=== PATIENT | female | born 1970 ===

== ENCOUNTER 2020-06-28 12:06 | Outpatient (REF) | payer MEDICAID, SELFPAY | END 2020-06-28 12:07 | disposition home or self-care (01) | LOC: HO.LAB 12:06 | PROVIDERS: Visit Provider Internal Medicine | DX: Z20.822 Contact with and (suspected) exposure to COVID-19 (principal) | CPT/HCPCS: 36415; C9803; U0003 ==

== ENCOUNTER 2020-07-15 15:51 | Outpatient (REF) | payer MEDICAID, SELFPAY | END 2020-07-15 15:52 | disposition home or self-care (01) | LOC: HO.LAB 15:51 | PROVIDERS: Visit Provider Internal Medicine | DX: Z20.822 Contact with and (suspected) exposure to COVID-19 (principal) | CPT/HCPCS: 36415; C9803; U0003 ==

== ENCOUNTER 2021-11-04 20:54 | Emergency (ER) | payer MEDICAID, SELFPAY ==
[2021-11-04 22:59] VITALS: BP 181/92; PULSE 77; RESP 18; TEMP 36.8; O2SAT 97; BMI 39.4
[2021-11-04 23:15] LABS: MANUAL DIFF FLAG NO
[2021-11-04 23:26] LABS: Basophils Percent Auto 0.3 % (0-2); Eosinophils Absolute Auto 0.2 X10*3/uL (0.0-0.4); Eosinophils Percent Auto 2.2 % (0-4); Hematocrit 38.8 % (37.0-47.0); Hemoglobin 12.5 g/dl (12.0-16.0); Imm Gran Abs Auto 0.01 X10*3/uL (0.00-0.03); Imm Gran Pct Auto 0.1 % (0.0-0.4); Lymphocytes Absolute Auto 1.4 X10*3/uL (1.2-4.9); Lymphocytes Percent Auto 19.2 % (20-40); Mean Corpuscular HGB Conc 32.2 g/dl (31.0-35.0); Mean Corpuscular Volume 96.3 fL (80.0-98.0); Mean Platelet Volume 12.8 fL (9.4-12.3); Monocytes Absolute Auto 0.5 X10*3/uL (0.1-1.2); Monocytes Percent Auto 6.6 % (2-11); Neutrophils Absolute Auto 5.2 x10*3/uL (2.0-8.3); Neutrophils Percent Auto 71.6 % (45-73); Platelet Count 203 X10*3/uL (160-400); Red Blood Count 4.03 X10*6/uL (4.20-5.50); Red Cell Distribution Width 11.8 % (11.0-16.0); White Blood Count 7.3 X10*3/uL (4.8-10.8)
[2021-11-04 23:35] LABS: Alanine Aminotransferase 18 U/L (0-31); Albumin Level 4.1 g/dL (3.5-5.0); Alkaline Phosphatase 88 U/L (39-117); Anion Gap 11 (12-20); Aspartate Amino Transferase 16 U/L (5-31); Bilirubin Total 0.5 mg/dL (0.0-1.0); Blood Urea Nitrogen 14 mg/dL (9-16); Calcium 9.7 mg/dL (8.4-10.2); Carbon Dioxide 27 mmol/L (22-29); Chloride 107 mmol/L (96-108); Estimated Glomerular Filt Rate > 60; Glucose Random 97 mg/dL (60-115); Sodium 141 mmol/L (135-145); Total Protein 7.7 g/dL (6.5-8.0)
== END 2021-11-05 02:41 | disposition left against medical advice (07) ==
PROVIDERS: Emergency Provider Emergency Medicine
DX: R10.9 Unspecified abdominal pain (principal); Z79.899 Other long term (current) drug therapy
CPT/HCPCS: 36415; 80053; 85025; 99281; 99283

== ENCOUNTER 2021-11-04 20:54 | Emergency (ER) | payer MEDICAID, SELFPAY ==
--- NOTE | ~2021-11-04 | CT_ITS ---
EXAMINATION: CT ABDOMEN AND PELVIS WITHOUT CONTRAST CLINICAL INFORMATION: 02/17/2011 COMPARISON: None TECHNIQUE: Multidetector volumetric imaging was performed from the superior aspect of the liver through the pubic symphysis. Sagittal and coronal reformatted images were obtained on the technologist's workstation. This CT examination was performed using dose optimization techniques as appropriate, variously including the following: *Automated exposure control *Adjustment of mA and/or kV according to patient size (this includes techniques or standardized protocols for targeted exams where dose is matched to indication/reason for exam; i.e. extremities or head) *Use of iterative reconstruction technique DLP: 800 mGy-cm FINDINGS: LUNG BASES: The visualized lung bases are unremarkable. LIVER, GALLBLADDER, AND BILIARY TREE: The liver is normal in size, shape, and attenuation. No focal hepatic lesion or biliary ductal dilatation is present. The gallbladder is unremarkable with no evidence of radiopaque gallstones, gallbladder wall thickening, or obvious pericholecystic inflammatory changes. PANCREAS: Unremarkable. SPLEEN: Unremarkable. ADRENAL GLANDS: Unremarkable. KIDNEYS AND URETERS: Hydronephrosis on the left. This appears to be caused by a 3 mm calculus in the proximal left ureter. BLADDER: Unremarkable. GASTROINTESTINAL TRACT: Diverticulosis. No evidence for diverticulitis. ABDOMINAL WALL: Fatty lesion involving the musculature of the right abdominal wall. There was minimal change here in 2011. This is felt to be increasing. Measures 4.3 x 3.2 x 5.7 cm. There are some soft tissue septations associated and possible mild thick wall inferior anterior LYMPH NODES: Normal. VASCULAR: Some atherosclerotic changes. PELVIC VISCERA: Unremarkable. OSSEOUS STRUCTURES: Unremarkable. CT/CT abdomen pelvis wo con IMPRESSION: There is mild hydronephrosis bordering moderate hydronephrosis of the left kidney which lead up to a 3 mm obstructing calculus in the proximal left ureter. There is a predominantly fat density lesion involving the right abdominal wall musculature above the level the iliac rim. This is increasing from 2011 study. As described some soft tissue associated. Although this could represent benign lipomatous I change cannot exclude liposarcoma. Recommend pre and postcontrast MRI Fleischner guidelines were followed.
--- NOTE | 2021-11-05 08:09 | ED.FEMALEGU ---
HPI - Female Genitourinary General Chief complaint: Urogenital-Female Stated complaint: possible kidney stone Time Seen by Provider: 11/05/21 08:05 Source: patient Mode of arrival: ambulatory Limitations: no limitations History of Present Illness HPI Narrative: this is 51 years old female presented to the ED with a chief complaint of left flank pain nausea for about 2 days, denies any fever vomiting MD elicited complaint: other (left flank pain) Onset (ago): day(s) (2) Location of symptoms: flank Severity: moderate Female Urogenital Radiation: Non-Radiating Consistency: constant Vaginal discharge: none Vaginal bleeding: none Related Data Home Medications Medication Instructions Recorded Confirmed amlodipine 10 mg tablet 10 mg PO DAILY 05/30/20 05/30/20 ergocalciferol (vitamin D2) 1,250 1,250 mcg PO QWEEK 05/30/20 05/30/20 mcg (50,000 unit) capsule (Vitamin D2) ferrous sulfate 325 mg (65 mg 325 mg PO BID 05/30/20 05/30/20 iron) tablet (iron) hydroxychloroquine 200 mg tablet 200 mg PO BID 05/30/20 05/30/20 (Plaquenil) lisinopril 40 mg tablet 40 mg PO DAILY 05/30/20 05/30/20 omeprazole 40 mg capsule,delayed 40 mg PO BID 05/30/20 05/30/20 release quetiapine 100 mg tablet (Seroquel) 100 mg PO BEDTIME 05/30/20 05/30/20 Previous Rx's Medication Instructions Recorded oxycodone 5 mg tablet 5 mg PO Q6H PRN #15 tab 11/05/21 tamsulosin 0.4 mg capsule (Flomax) 0.4 mg PO DAILY #10 cap 11/05/21 Allergies Allergy/AdvReac Type Severity Reaction Status Date / Time No Known Allergies Allergy Verified 05/30/20 10:12 [No Known Allergies*] Review of Systems Review of Systems: Yes all other systems are reviewed and are negative Cardiovascular: Cardiovascular: Denies chest pain and Denies dyspnea Respiratory: Respiratory: Denies dyspnea Gastrointestinal: Gastrointestinal: Reports abdominal pain PMFSH Past Medical History Medical History Anemia Arthritis Depression History of anxiety HTN (hypertension) Lupus Personal history of tuberculosis Surgical History H/O colonoscopy History of esophagogastroduodenoscopy (EGD) Hx of appendectomy Hx of dilation and curettage Hx of knee surgery Hx of lithotripsy Hx of total hysterectomy with removal of both tubes and ovaries Social History Social History Alcohol intake: never Years Smoked: 36 Substance Use Type: Marijuana Advance Directives: No Advance Directives Information Provided: Yes Physical Exam Vital Signs: Vital Signs: Last Vital Signs Pulse 76 11/05/21 10:57 Resp 14 11/05/21 10:57 BP 193/78 H 11/05/21 10:57 Pulse Ox 96 11/05/21 10:57 BMI result Body Mass Index 36.5 Const: General: cooperative, comfortable, no acute distress, well developed and alert Nutritional Appearance: average body habitus Orientation/consciousness: patient oriented x3 HEENT: Head: Yes normal to inspection Face and sinus: Yes normal facial exam Mouth: Normal oral and palatal mucosa present Throat: Yes posterior oropharynx normal Neck: Neck: Yes normal visual inspection and Yes full ROM Chest: Chest palpation & inspection: normal inspection of the chest Resp: Effort & Inspection: normal respiratory effort Auscultation: clear to auscultation bilaterally Cardio: Jugular venous distension: no JVD Rhythm: regular rhythm GI: Inspection: Yes normal to inspection Palpation (GI): Tenderness to palpation present (GI) (left flank tenderness) Neuro: General: patient oriented x3 and gait normal Gait exam (Neuro): Normal gait present Course Reevaluation(s) Reevaluation #1: pain free Time: 11:11 [facility] - Female Genitourinary Lab Data Attestation: I reviewed the patient's lab results. Result diagrams: 11/05/21 09:27 11/05/21 09:27 Labs: Lab Results 11/05/21 11/05/21 Range/Units 09:27 09:27 WBC 5.8 (4.8-10.8) X10*3/uL RBC 4.14 L (4.20-5.50) X10*6/uL Hgb 12.6 (12.0-16.0) g/dl Hct 39.6 (37.0-47.0) % MCV 95.7 (80.0-98.0) fL MCH 30.4 (27.0-33.0) pg MCHC 31.8 (31.0-35.0) g/dl RDW 11.9 (11.0-16.0) % Plt Count 210 (160-400) X10*3/uL MPV 12.9 H (9.4-12.3) fL Immature Gran % (Auto) 0.3 (0.0-0.4) % Neut % (Auto) 63.7 (45-73) % Lymph % (Auto) 24.5 (20-40) % [place] % (Auto) 7.2 (2-11) % Eos % (Auto) 4.0 (0-4) % Baso % (Auto) 0.3 (0-2) % Lymph # (Auto) 1.4 (1.2-4.9) X10*3/uL [place] # (Auto) 0.4 (0.1-1.2) X10*3/uL Eos # (Auto) 0.2 (0.0-0.4) X10*3/uL Baso # (Auto) 0.0 (0.0-0.2) X10*3/uL Abs Immat Gran (auto) 0.02 (0.00-0.03) X10*3/uL Absolute Neuts (auto) 3.7 (2.0-8.3) x10*3/uL Absolute Nucleated RBC 0.000 (0.0-0.012) X10*3/uL Nucleated RBC % (auto) 0.0 (0.0-0.2) /100WBC Sodium 141 (135-145) mmol/L Potassium 3.8 (3.3-5.1) mmol/L Chloride 106 (96-108) mmol/L Carbon Dioxide 28 (22-29) mmol/L Anion Gap 11 L (12-20) BUN 11 (9-16) mg/dL Creatinine 0.71 (0.5-1.4) mg/dL Estim Creat Clear Calc TNP Estimated GFR > 60 Random Glucose 99 (60-115) mg/dL Calcium 9.7 (8.4-10.2) mg/dL Total Bilirubin 0.6 (0.0-1.0) mg/dL AST 15 (5-31) U/L ALT 18 (0-31) U/L Alkaline Phosphatase 89 (39-117) U/L Total Protein 7.5 (6.5-8.0) g/dL Albumin 4.1 (3.5-5.0) g/dL Imaging Data CT scan - abdomen: Radiologist's impression: ere in 2011. This is felt to be increasing. Measures 4.3 x 3.2 x 5.7 cm. There are some soft tissue septations associated and possible mild thick wall inferior anterior? LYMPH NODES: Normal. VASCULAR: Some atherosclerotic changes. PELVIC VISCERA: Unremarkable.? OSSEOUS STRUCTURES: Unremarkable.? CT/CT abdomen pelvis wo con IMPRESSION: There is mild hydronephrosis bordering moderate hydronephrosis of the left kidney which lead up to a 3 mm obstructing calculus in the proximal left ureter. ? There is a? predominantly fat density lesion involving the right abdominal wall musculature above the level the iliac rim. This is increasing from 2011 study. As described some soft tissue associated. Although this could represent benign lipomatous I change cannot exclude liposarcoma. Recommend pre and postcontrast MRI ? Fleischner guidelines were followed. Dictated By: Max Joel MD Signed By: <Electronically signed by Max Joel MD in [place]> 11/05/21 1005 DD/ 0910 Discharge Plan Discharge Clinical Impression: Renal colic Patient Disposition: Home, Self-Care Instructions: Renal Colic (ED) Prescriptions: New oxycodone 5 mg tablet 5 mg PO Q6H PRN (Reason: pain) Qty: 15 0RF Rx Instructions: partial filing upon pt request tamsulosin [Flomax] 0.4 mg capsule 0.4 mg PO DAILY Qty: 10 0RF No Action omeprazole 40 mg Capsule,Delayed Release(Dr/Ec) 40 mg PO BID 0RF quetiapine [Seroquel] 100 mg Tablet 100 mg PO BEDTIME 0RF amlodipine 10 mg Tablet 10 mg PO DAILY 0RF ferrous sulfate [iron] 325 mg (65 mg iron) Tablet 325 mg PO BID 0RF ergocalciferol (vitamin D2) [Vitamin D2] 1,250 mcg (50,000 unit) Capsule 1,250 mcg PO QWEEK 0RF hydroxychloroquine [Plaquenil] 200 mg Tablet 200 mg PO BID 0RF lisinopril 40 mg Tablet 40 mg PO DAILY 0RF Referrals: Kev Hernandez MD [Physician] - Interventions: ED Discharge Assessment Last Done: 11/05/21 11:23 Discharge Date/Time: 11/05/21 11:23
[2021-11-05 09:32] LABS: MANUAL DIFF FLAG NO
[2021-11-05 09:43] LABS: Basophils Percent Auto 0.3 % (0-2); Eosinophils Absolute Auto 0.2 X10*3/uL (0.0-0.4); Hematocrit 39.6 % (37.0-47.0); Hemoglobin 12.6 g/dl (12.0-16.0); Imm Gran Abs Auto 0.02 X10*3/uL (0.00-0.03); Imm Gran Pct Auto 0.3 % (0.0-0.4); Lymphocytes Absolute Auto 1.4 X10*3/uL (1.2-4.9); Lymphocytes Percent Auto 24.5 % (20-40); Mean Corpuscular HGB Conc 31.8 g/dl (31.0-35.0); Mean Corpuscular Hemoglobin 30.4 pg (27.0-33.0); Mean Corpuscular Volume 95.7 fL (80.0-98.0); Mean Platelet Volume 12.9 fL (9.4-12.3); Monocytes Absolute Auto 0.4 X10*3/uL (0.1-1.2); Monocytes Percent Auto 7.2 % (2-11); Neutrophils Absolute Auto 3.7 x10*3/uL (2.0-8.3); Neutrophils Percent Auto 63.7 % (45-73); Platelet Count 210 X10*3/uL (160-400); Red Blood Count 4.14 X10*6/uL (4.20-5.50); Red Cell Distribution Width 11.9 % (11.0-16.0); White Blood Count 5.8 X10*3/uL (4.8-10.8)
[2021-11-05 10:04] LABS: Alanine Aminotransferase 18 U/L (0-31); Albumin Level 4.1 g/dL (3.5-5.0); Alkaline Phosphatase 89 U/L (39-117); Anion Gap 11 (12-20); Aspartate Amino Transferase 15 U/L (5-31); Bilirubin Total 0.6 mg/dL (0.0-1.0); Blood Urea Nitrogen 11 mg/dL (9-16); Calcium 9.7 mg/dL (8.4-10.2); Carbon Dioxide 28 mmol/L (22-29); Chloride 106 mmol/L (96-108); Estimated Glomerular Filt Rate > 60; Glucose Random 99 mg/dL (60-115); Potassium 3.8 mmol/L (3.3-5.1); Sodium 141 mmol/L (135-145); Total Protein 7.5 g/dL (6.5-8.0)
[2021-11-05] MEDS: oxyCODONE HCl Immed Release 5 MG TABLET 10 MG PO (10:26)
[2021-11-05 10:54] VITALS: BMI 36.5
[2021-11-05 10:57] VITALS: BP 193/78; PULSE 76; RESP 14; O2SAT 96
[2021-11-05] MEDS: Ketorolac Tromethamine 60 MG/2 ML VIAL IM (11:12)
== END 2021-11-05 11:23 | disposition home or self-care (01) ==
PROVIDERS: Emergency Provider Emergency Medicine
DX: N23 Unspecified renal colic (principal); I10 Essential (primary) hypertension
CPT/HCPCS: 36415; 74176; 80053; 85025; 96372; 99283; 99284; J1885

== ENCOUNTER 2021-11-07 04:55 | Emergency (ER) | payer MEDICAID, SELFPAY ==
[2021-11-07 05:00] VITALS: BP 165/93; BP 196/81; PULSE 114; PULSE 97; RESP 18; TEMP 36.7; O2SAT 98; O2SAT 99; BMI 39.4
[2021-11-07] MEDS: 0.9 % Sodium Chloride 1,000 ML 999 ML IV (05:18)
[2021-11-07] MEDS: Ketorolac Tromethamine 30 MG/ML VIAL IVPUSH (05:22)
[2021-11-07] MEDS: Morphine Sulfate 2 MG/ML CARTRIDGE 1 MG IVPUSH (05:22)
[2021-11-07 05:52] LABS: Basophils Percent Auto 0.2 % (0-2); Eosinophils Absolute Auto 0.1 X10*3/uL (0.0-0.4); Eosinophils Percent Auto 1.5 % (0-4); Hematocrit 37.8 % (37.0-47.0); Hemoglobin 12.4 g/dl (12.0-16.0); Imm Gran Abs Auto 0.01 X10*3/uL (0.00-0.03); Imm Gran Pct Auto 0.2 % (0.0-0.4); Lymphocytes Absolute Auto 0.8 X10*3/uL (1.2-4.9); Lymphocytes Percent Auto 13.1 % (20-40); MANUAL DIFF FLAG NO; Mean Corpuscular HGB Conc 32.8 g/dl (31.0-35.0); Mean Corpuscular Volume 94.5 fL (80.0-98.0); Monocytes Absolute Auto 0.4 X10*3/uL (0.1-1.2); Neutrophils Absolute Auto 4.6 x10*3/uL (2.0-8.3); Platelet Count 152 X10*3/uL (160-400); Red Cell Distribution Width 11.7 % (11.0-16.0); White Blood Count 5.9 X10*3/uL (4.8-10.8)
[2021-11-07 06:07] LABS: Alanine Aminotransferase 15 U/L (0-31); Albumin Level 4.2 g/dL (3.5-5.0); Alkaline Phosphatase 87 U/L (39-117); Anion Gap 12 (12-20); Aspartate Amino Transferase 14 U/L (5-31); Bilirubin Direct 0.3 mg/dL (0.0-0.5); Bilirubin Total 0.8 mg/dL (0.0-1.0); Blood Urea Nitrogen 14 mg/dL (9-16); Calcium 9.9 mg/dL (8.4-10.2); Carbon Dioxide 26 mmol/L (22-29); Chloride 105 mmol/L (96-108); Creatinine Clr Calc Pharmacy 98.1; Estimated Glomerular Filt Rate > 60; Glucose Random 112 mg/dL (60-115); Lipase 15 U/L (8-78); Potassium 3.8 mmol/L (3.3-5.1); Sodium 139 mmol/L (135-145); Total Protein 7.5 g/dL (6.5-8.0)
[2021-11-07 07:12] VITALS: BP 161/84; PULSE 85; RESP 16; TEMP 36.6; O2SAT 97
[2021-11-07 07:25] LABS: Appearance Urine CLEAR; Color Urine YELLOW; Glucose Urine UA NEG (NEG); Leukocyte Esterase Urine NEG (NEG); Nitrite Urine NEG (NEG); Specific Gravity - Urine 1.015 (1.005-1.025); UACC Culture Trigger NO; Urine Blood 2+ (NEG); Urine Ketones NEG (NEG); Urine Protein NEG (NEG-TRACE)
[2021-11-07 07:56] LABS: WBC Urine 0 /HPF (0-4)
--- NOTE | 2021-11-07 08:18 | ED.ABDPAIN ---
HPI - Abdominal Pain General Chief Complaint: Abdominal Pain Stated Complaint: Flank Pain Time Seen by Provider: 11/07/21 05:11 Source: patient Mode of arrival: EMS Limitations: no limitations History of Present Illness HPI narrative: 51-year-old female who presents emergency department for evaluation of left flank and left abdominal pain. The patient states the pain started 3 days prior. She was seen here in the emergency department on 11/05/2021 and diagnosed with 3 mm proximal left ureteral stone with mild hydronephrosis. She was discharged with a prescription for tamsulosin oxycodone. She states that the pain is been intermittent. The pain got more severe this morning. She points to her left flank when she describes the pain. The pain does radiate to her left upper quadrant of her abdomen. The pain is an intermittent, stabbing pain which is 9/10 at its worst. Patient states she took her oxycodone at home without relief for pain. At the time of my evaluation, the patient did receive morphine 1 mg IV and Toradol 30 mg IV and still is experiencing 9/10 pain. She denied fever, chills, chest pain, shortness of breath. She has had nausea. She states she has had urinary frequency with no dysuria. MD elicited complaint: abdominal pain (Left upper quad) and flank pain (Left flank) Pertinent past history: kidney stones (3 mm left proximal ureteral stone diagnosed on 11/05/2021) Onset (ago): day(s) (3) Pain Consistency: intermittent Location: LUQ and L flank Severity: severe Pain scale (0-10): 9 Quality: stabbing Radiation: none Migration to: no migration Exacerbating factors: nothing Relieving factors: nothing Associated symptoms: nausea and other (Urinary frequency) Related Data Home Medications Medication Instructions Recorded Confirmed amlodipine 10 mg tablet 10 mg PO DAILY 05/30/20 05/30/20 ergocalciferol (vitamin D2) 1,250 1,250 mcg PO QWEEK 05/30/20 05/30/20 mcg (50,000 unit) capsule (Vitamin D2) ferrous sulfate 325 mg (65 mg 325 mg PO BID 05/30/20 05/30/20 iron) tablet (iron) hydroxychloroquine 200 mg tablet 200 mg PO BID 05/30/20 05/30/20 (Plaquenil) lisinopril 40 mg tablet 40 mg PO DAILY 05/30/20 05/30/20 omeprazole 40 mg capsule,delayed 40 mg PO BID 05/30/20 05/30/20 release quetiapine 100 mg tablet (Seroquel) 100 mg PO BEDTIME 05/30/20 05/30/20 Previous Rx's Medication Instructions Recorded oxycodone 5 mg tablet 5 mg PO Q6H PRN #15 tab 11/05/21 tamsulosin 0.4 mg capsule (Flomax) 0.4 mg PO DAILY #10 cap 11/05/21 morphine 15 mg immediate release 15 mg PO Q4-6H PRN #14 tab 11/07/21 tablet Allergies Allergy/AdvReac Type Severity Reaction Status Date / Time No Known Allergies Allergy Verified 05/30/20 10:12 [No Known Allergies*] Review of Systems Review of Systems Yes all other systems are reviewed and are negative [facility] Past Medical History [facility] Narrative: Social history: She denies tobacco use. She states she rarely drinks alcohol. She denies drug use. Medical History Anemia Arthritis Depression History of anxiety HTN (hypertension) Lupus Personal history of tuberculosis Surgical History H/O colonoscopy History of esophagogastroduodenoscopy (EGD) Hx of appendectomy Hx of dilation and curettage Hx of knee surgery Hx of lithotripsy Hx of total hysterectomy with removal of both tubes and ovaries Social History Social History Alcohol intake: never Years Smoked: 36 Substance Use Type: Marijuana Advance Directives: No Advance Directives Information Provided: No Physical Exam ED Vital Signs: Vital Signs - 24 hr 11/07/21 05:00 11/07/21 07:12 Temperature 98.1 F 97.8 F Pulse Rate 97 85 Respiratory Rate 18 16 Blood Pressure 196/81 H 161/84 H Pulse Oximetry 99 97 BMI result Body Mass Index 39.4 Const General: cooperative and no acute distress Orientation/consciousness: oriented to person and oriented to place Limitations: no limitations HENMT Head: Yes normal to inspection, Yes normocephalic and Yes atraumatic Ears: external ears normal General nose exam: Normal external nose present Face and sinus: Yes normal facial exam Mouth: Normal oral and palatal mucosa present Throat: Yes posterior oropharynx normal Eyes General: appearance normal, both eyes and all related structures Pupils: Equal, round and reactive pupils present Neck Neck: Yes normal visual inspection, Yes no lymphadenopathy, Yes trachea midline and Yes supple Chest Chest palpation & inspection: normal inspection of the chest and normal palpation of entire chest wall Resp Effort & Inspection: normal respiratory effort and able to speak in complete sentences Auscultation: clear to auscultation bilaterally Cardio Rate: regular rate Rhythm: regular rhythm Heart sounds: S1 normal heart sound present, S2 normal heart sound present and no murmurs GI Inspection: Yes normal to inspection Palpation (GI): Soft to palpation, Tenderness to palpation present (GI) in the LUQ (Moderate) and no guarding Auscultation: normal bowel sounds General: Yes no CVA tenderness Back/Spine/Pelvis Back: no CVA tenderness Skin General skin exam: no rashes or lesions noted Neuro General: oriented to person and oriented to place Cranial nerves: Yes CN's II-XII intact bilaterally and Yes Equal, round and reactive pupils present Cognition (Neuro): normal cognition Motor exam (neuro): 5/5 motor strength present throughout Extrem General: Yes normal to inspection Psych Appearance: grossly normal Speech and movement: Normal speech and movement present Affect: normal affect Attitude: cooperative Thought process: Normal thought process present Thought content: Normal thought content present Course Course Course Narrative: 51-year-old female who presents emergency department for evaluation of left flank and left upper quadrant pain which is been intermittent x3 days. The patient was diagnosed with a 3 mm left proximal ureteral stone by CT scan on 11/05/2021 with mild hydronephrosis. Patient has been having intermittent pain with increased pain this morning which was 9/10 . The pain is located in her left flank and left upper quadrant. Vital signs revealed an elevated blood pressure of 196/81, repeat was 161/84 otherwise vital signs were normal. The patient does have left upper quadrant tenderness with no left flank tenderness. Laboratory evaluation and urinalysis were ordered. Patient was initially treated with Toradol 30 mg IV and morphine 1 mg IV with no relief for pain. I ordered morphine 4 mg IV and Zofran 4 mg IV. Patient was also ordered to get normal saline x1 L. 0827: Laboratory evaluation: Platelet count was low 152,000. CMP was normal with normal BUN and creatinine. Urinalysis revealed 2+ blood. Microscopic revealed 9 RBCs, 0 WBCs and 0 bacteria. 1104: The patient is feeling better after the above treatment. She states that her pain is 6/10. She was ordered to get a another dose of morphine 4 mg IV. The patient will be discharged home with a prescription for morphine 4 mg every 4-6 hours as needed for pain. She was given printed and verbal instructions and discharged home. She was advised to continue straining her urine. MDM - Abdominal Pain Lab Data Result diagrams: 11/07/21 05:48 11/07/21 05:48 Labs: Lab Results 11/07/21 11/07/21 11/07/21 Range/Units 05:48 05:48 07:11 WBC 5.9 (4.8-10.8) X10*3/uL RBC 4.00 L (4.20-5.50) X10*6/uL Hgb 12.4 (12.0-16.0) g/dl Hct 37.8 (37.0-47.0) % MCV 94.5 (80.0-98.0) fL MCH 31.0 (27.0-33.0) pg MCHC 32.8 (31.0-35.0) g/dl RDW 11.7 (11.0-16.0) % Plt Count 152 L D (160-400) X10*3/uL MPV 13.0 H (9.4-12.3) fL Immature Gran % (Auto) 0.2 (0.0-0.4) % Neut % (Auto) 78.0 H (45-73) % Lymph % (Auto) 13.1 L (20-40) % [place] % (Auto) 7.0 (2-11) % Eos % (Auto) 1.5 (0-4) % Baso % (Auto) 0.2 (0-2) % Lymph # (Auto) 0.8 L (1.2-4.9) X10*3/uL [place] # (Auto) 0.4 (0.1-1.2) X10*3/uL Eos # (Auto) 0.1 (0.0-0.4) X10*3/uL Baso # (Auto) 0.0 (0.0-0.2) X10*3/uL Abs Immat Gran (auto) 0.01 (0.00-0.03) X10*3/uL Absolute Neuts (auto) 4.6 (2.0-8.3) x10*3/uL Absolute Nucleated RBC 0.000 (0.0-0.012) X10*3/uL Nucleated RBC % (auto) 0.0 (0.0-0.2) /100WBC Sodium 139 (135-145) mmol/L Potassium 3.8 (3.3-5.1) mmol/L Chloride 105 (96-108) mmol/L Carbon Dioxide 26 (22-29) mmol/L Anion Gap 12 (12-20) BUN 14 (9-16) mg/dL Creatinine 0.78 (0.5-1.4) mg/dL Estim Creat Clear Calc 98.1 Estimated GFR > 60 Random Glucose 112 (60-115) mg/dL Calcium 9.9 (8.4-10.2) mg/dL Total Bilirubin 0.8 (0.0-1.0) mg/dL Direct Bilirubin 0.3 (0.0-0.5) mg/dL AST 14 (5-31) U/L ALT 15 (0-31) U/L Alkaline Phosphatase 87 (39-117) U/L Total Protein 7.5 (6.5-8.0) g/dL Albumin 4.2 (3.5-5.0) g/dL Lipase 15 (8-78) U/L Urine Color YELLOW Urine Appearance CLEAR Urine pH 7.0 (5.0-8.0) Ur Specific [place] 1.015 (1.005-1.025) Urine Protein NEG (NEG-TRACE) MG/DL Urine Glucose (UA) NEG (NEG) MG/DL Urine Ketones NEG (NEG) MG/DL Urine Blood 2+ H (NEG) Urine Nitrite NEG (NEG) Ur Leukocyte Esterase NEG (NEG) Urine RBC 5-9 H (0) /HPF Urine WBC 0 (0-4) /HPF Ur Squamous Epith Cells NONE /LPF Urine Bacteria NONE /LPF Discharge Plan Discharge Clinical Impression: Renal colic on left side, Left ureteral calculus Patient Disposition: Home, Self-Care Instructions: Kidney Stones (ED), How to Strain Your Urine (ED) Additional Instructions: Your blood work was unremarkable. Your urinalysis test was unremarkable, there is no urine infection. You had a 3 mm stone in the left ureter (the tube that connects the kidney to the bladder) on your CT scan from 11/05/2021 Stop taking oxycodone. Take ibuprofen 200 mg pills, 3 pills every 6 hours as needed for pain. Take Tylenol (acetaminophen) 2 pills every 4-6 hours as needed for pain. For pain not relieved by ibuprofen or Tylenol take morphine 15 mg pills, 1 pill every 4 hours as needed for pain. This medication will make you sleepy, do not drive or work while taking this medication. Morphine is a narcotic medication and can be addicting. If you are concerned about addiction you can ask the pharmacist for less pills or do not get this prescription filled. Follow-up with your doctor in 2 days and our urologist within 1-2 weeks. Please return to the emergency department if your symptoms get worse or if you develop any symptoms that are concerning to you. Prescriptions: New morphine 15 mg tablet 15 mg PO Q4-6H PRN (Reason: pain) Qty: 14 0RF Rx Instructions: Patient may request partial fill No Action omeprazole 40 mg Capsule,Delayed Release(Dr/Ec) 40 mg PO BID 0RF quetiapine [Seroquel] 100 mg Tablet 100 mg PO BEDTIME 0RF amlodipine 10 mg Tablet 10 mg PO DAILY 0RF ferrous sulfate [iron] 325 mg (65 mg iron) Tablet 325 mg PO BID 0RF ergocalciferol (vitamin D2) [Vitamin D2] 1,250 mcg (50,000 unit) Capsule 1,250 mcg PO QWEEK 0RF hydroxychloroquine [Plaquenil] 200 mg Tablet 200 mg PO BID 0RF lisinopril 40 mg Tablet 40 mg PO DAILY 0RF oxycodone 5 mg tablet 5 mg PO Q6H PRN (Reason: pain) Qty: 15 0RF Rx Instructions: partial filing upon pt request tamsulosin [Flomax] 0.4 mg capsule 0.4 mg PO DAILY Qty: 10 0RF Referrals: Kev Hernandez MD [Physician] - 10 days
[2021-11-07] MEDS: ondansetron HCL 4 MG/2 ML VIAL IVPUSH (08:24)
[2021-11-07] MEDS: Morphine Sulfate 4 MG/ML CARTRIDGE IVPUSH ×3 (08:24→11:13)
[2021-11-07 11:16] VITALS: BP 127/88; PULSE 81; RESP 18; TEMP 36.6; O2SAT 97
== END 2021-11-07 11:55 | disposition home or self-care (01) ==
PROVIDERS: Emergency Medicine; Emergency Provider Emergency Medicine Emergency Medical Services
DX: N13.2 Hydronephrosis with renal and ureteral calculous obstruction (principal); I10 Essential (primary) hypertension
CPT/HCPCS: 36415; 80048; 80076; 81001; 83690; 85025; 96361; 96374; 96375; 96376; 99283; 99284; J1885; J2270; J2405

== ENCOUNTER 2022-12-12 15:00 | Emergency (ER) | payer MEDICAID, SELFPAY ==
--- NOTE | 2022-12-12 15:09 | ED.WOUNDLAC ---
HPI - Wound/Laceration General Chief Complaint: Wound/Laceration Stated Complaint: left hand laceration Time Seen by Provider: 12/12/22 15:22 History of Present Illness HPI narrative: patient complains of laceration to left index finger with a knife just prior to arrival in the ER, no numbness no weakness no tingling no difficulty moving finger denies any other injury Related Data Home Medications Medication Instructions Recorded Confirmed amlodipine 10 mg tablet 10 mg PO DAILY 05/30/20 05/30/20 ergocalciferol (vitamin D2) 1,250 1,250 mcg PO QWEEK 05/30/20 05/30/20 mcg (50,000 unit) capsule (Vitamin D2) ferrous sulfate 325 mg (65 mg 325 mg PO BID 05/30/20 05/30/20 iron) tablet (iron) hydroxychloroquine 200 mg tablet 200 mg PO BID 05/30/20 05/30/20 (Plaquenil) lisinopril 40 mg tablet 40 mg PO DAILY 05/30/20 05/30/20 omeprazole 40 mg capsule,delayed 40 mg PO BID 05/30/20 05/30/20 release quetiapine 100 mg tablet (Seroquel) 100 mg PO BEDTIME 05/30/20 05/30/20 Previous Rx's Medication Instructions Recorded oxycodone 5 mg tablet 5 mg PO Q6H PRN pain #15 tabs 11/05/21 tamsulosin 0.4 mg capsule (Flomax) 0.4 mg PO DAILY #10 caps 11/05/21 morphine 15 mg immediate release 15 mg PO Q4-6H PRN pain #14 tabs 11/07/21 tablet Allergies Allergy/AdvReac Type Severity Reaction Status Date / Time hydroxychloroquine Allergy Unknown Verified 12/12/22 15:16 [facility] Past Medical History Source: nursing notes reviewed Medical History Anemia Arthritis Depression History of anxiety HTN (hypertension) Lupus Personal history of tuberculosis Surgical History H/O colonoscopy History of esophagogastroduodenoscopy (EGD) Hx of appendectomy Hx of dilation and curettage Hx of knee surgery Hx of lithotripsy Hx of total hysterectomy with removal of both tubes and ovaries Social History Social History Alcohol intake: never Years Smoked: 36 Substance Use Type: Marijuana Advance Directives: No Advance Directives Information Provided: No Physical Exam Vital Signs: Vital Signs: Last Vital Signs Temp 97.7 F 12/12/22 15:16 Pulse 82 12/12/22 15:16 Resp 16 12/12/22 15:16 BP 154/99 H 12/12/22 15:16 Pulse Ox 96 12/12/22 15:16 O2 Del Method Room Air 12/12/22 15:16 BMI result Body Mass Index 39.8 general appearance no acute distress Head is normocephalic atraumatic Neck is supple Respiratory no distress Left index finger has a laceration mid phalanx of the mid phalanx, it is on the volar surface it is 1.5 cm it is oozing blood, it is neurovascular intact distal with full flexion, no evidence of tendon deficit Course Course Course Narrative: This is an RME: Additional HPI, ROS, PE not included below will be deferred to primary provider. Patient is a 52 year old female who presents emergency department for evaluation of a laceration having occurred [employer], cut hand with a kitchen knife accidentally. Laceration left 2nd DIP palmar aspect, unable to flex, held in extension. cleansed NS, CDD dressing placed. Denies anticoagulants. last tetanus unknown Procedure note Left index finger 1.5 cm laceration anesthesia is 6 cc of 1% lidocaine digital block Copiously irrigated with normal saline Closed with 45.0 nylon sutures with bleeding controlled Dressing applied Well-appearing patient with no flexor tendon deficits is discharged Medications Administered Discontinued Medications Generic Name Dose Route Start Last Admin Trade Name Freq PRN Reason Stop Dose Admin Diphtheria/Tetanus/Acell Pertussis 0.5 ml 12/12/22 15:13 12/12/22 15:33 Diphth,Pertus(Acell),Tet Adult 0.5 Ml Syringe IM 12/12/22 15:14 0.5 ml .ONCE ONE Administration Lidocaine HCl 5 ml 12/12/22 15:37 12/12/22 16:01 Lidocaine Hcl 1 % Mpf 5 Ml Vial SUBCUT 12/12/22 15:38 5 ml ONCE ONE Administration Lidocaine HCl 5 ml 12/12/22 15:38 12/12/22 16:01 Lidocaine Hcl 1 % Mpf 5 Ml Vial SUBCUT 12/12/22 15:39 5 ml ONCE ONE Administration Discharge Plan Discharge Clinical Impression: Laceration Patient Disposition: Home, Self-Care Additional Instructions: sutures out at your doctor's office in a week to 10 days, if he is not available come to the ER Return any time for redness swelling pain discharge from wound any sign of infection You had a tetanus shot today Prescriptions: No Action omeprazole 40 mg Capsule,Delayed Release(Dr/Ec) 40 mg PO BID quetiapine [Seroquel] 100 mg Tablet 100 mg PO BEDTIME amlodipine 10 mg Tablet 10 mg PO DAILY ferrous sulfate [iron] 325 mg (65 mg iron) Tablet 325 mg PO BID ergocalciferol (vitamin D2) [Vitamin D2] 1,250 mcg (50,000 unit) Capsule 1,250 mcg PO QWEEK hydroxychloroquine [Plaquenil] 200 mg Tablet 200 mg PO BID lisinopril 40 mg Tablet 40 mg PO DAILY oxycodone 5 mg tablet 5 mg PO Q6H PRN (Reason: pain) Qty: 15 0RF Rx Instructions: partial filing upon pt request tamsulosin [Flomax] 0.4 mg capsule 0.4 mg PO DAILY Qty: 10 0RF morphine 15 mg tablet 15 mg PO Q4-6H PRN (Reason: pain) Qty: 14 0RF Rx Instructions: Patient may request partial fill
[2022-12-12 15:16] VITALS: BP 154/99; PULSE 82; RESP 16; TEMP 36.5; O2SAT 96; BMI 39.8
[2022-12-12] MEDS: Diphth,Pertus(ACell),Tet Adult 0.5 ML SYRINGE IM (15:33)
[2022-12-12] MEDS: Lidocaine HCl 1 % MPF 5 ML VIAL SUBCUT ×2 (16:01)
== END 2022-12-12 16:57 | disposition home or self-care (01) ==
PROVIDERS: Emergency Provider Emergency Medicine
DX: S61.211A Laceration without foreign body of left index finger without damage to nail, initial encounter (principal); W26.0XXA Contact with knife, initial encounter; Y93.9 Activity, unspecified; Y92.039 Unspecified place in apartment as the place of occurrence of the external cause; Y99.9 Unspecified external cause status
CPT/HCPCS: 12001; 90471; 90715; 99282; 99284

== ENCOUNTER 2023-02-25 14:59 | Outpatient (AMB) | payer MEDICAID, SELFPAY ==
--- NOTE | 2023-02-25 15:01 | MHC.OFFVIS ---
Intake Vital Signs 02/25/23 15:10 Height 5 ft 4 in Weight 236 lb 6 oz BMI 40.6 BP 136/80 Blood Pressure Location Rt brachial Position Sitting Pulse 72 Pulse Source Pulse Oximeter Pulse Oximetry (%) 98 Oxygen Delivery Method Room Air Intake Visit Reasons: Arthritis of both knees Insulation Blanket Maker Required: Yes Insulation Blanket Maker Language: Casing In Line Feeder Name: daughter Accompanied by: Daughter Allergies hydroxychloroquine Allergy (Verified 02/25/23 15:07) Unknown HPI Arthritis of both knees HPI Details Patient is a 52-year-old Kazakh-speaking morbidly obese female with prior history of hypertension, unspecified connective tissue disease, mood disorder, LVH, SVT, presents to the this chronic bilateral knee pain for reviewed she has been previously seen by Rheumatology, Orthopedics and Pain Management. Per referral notes, patient was last seen by Pain management in 2019 for consideration of nerve blocks which had previously resulted in relief. Patient presents with localized tenderness of her global anterior knee. She reports left knee surgery at [facility] 6 years ago and right knee surgery more than 15 years ago. Patient reports she underwent multiple injections, x-rays, and states and topical applications [id number] which did not provide her any pain relief. Pain negatively affects her daily activities, functioning, mobility, mood, sleep and sleep interactions. Patient reports medications like tramadol or oxycodone have been the most effective and she requests for opioid medication to be prescribed today. I have informed patient that our office does not offer opioid prescribing at this time. We discussed diagnostic genicular nerve blocks for potential peripheral nerve stimulation or RFA procedures to provide patient's longer-term pain relief. Patient is very hesitant to worse interventional treatments at this time. Denies any fever, weight loss, weakness, knee locking or giving out, bladder or bowel dysfunction or saddle anesthesia. Location Bilateral knees Duration Chronic pain for 3 years Characteristics of symptom or complaint Aching, tiring,burning, stabbing Aggravating or associated factors Standing, walking, climbing stairs, cold weather changes Relieving factors Cymbalta, tramadol, oxycodone, Celebrex, meloxicam Treatment Knee injections, topical applications, ice/heat therapy [facility] Medical History (Updated 02/28/23 @ 20:54 by LENI Rodriguez) Lupus Arthritis Anemia History of anxiety Depression Personal history of tuberculosis HTN (hypertension) Surgical History (Updated 02/28/23 @ 20:54 by LENI Rodriguez) Hx of total hysterectomy with removal of both tubes and ovaries Hx of dilation and curettage History of esophagogastroduodenoscopy (EGD) H/O colonoscopy Hx of knee surgery Hx of lithotripsy Hx of appendectomy Social History Alcohol intake: never Years Smoked: 36 Substance Use Type: Marijuana Review of Systems Const All systems reviewed & are unremarkable except as noted in HPI and below Physical Exam Vital Signs: Last Vital Signs Pulse 72 02/25/23 15:10 BP 136/80 02/25/23 15:10 Pulse Ox 98 02/25/23 15:10 Oxygen Delivery Method Room Air 02/25/23 15:10 BMI result Body Mass Index 40.6 General: Appears afebrile. Alert and oriented. Mood and affect appropriate. Follows and participates in conversation appropriately. Respiratory effort is unlabored. No cough. Able to transition from sit to stand unassisted. Ambulates with bilaterally normal heel strike and toe off. Extrem General: Yes capillary refill normal, Yes no clubbing, cyanosis or edema and Yes no calf tenderness Right lower extremity: knee (Limited ROM due to pain. Normal scarring.) Details: normal to inspection, tenderness (global anterior knee) and crepitus; no swelling, no ecchymosis, no deformity and no unusual warmth Left lower extremity: knee (Limited ROM due to pain. Normal scarring.) Details: normal to inspection and tenderness (Global knee pain and tenderness); no swelling, no ecchymosis, no crepitus and no unusual warmth Results Reviewed Results Reviewed: XR KNEE, RIGHT XR KNEE AP STANDING 08/25/2019 CLINICAL INFORMATION: Pain. COMPARISON: Prior radiographs, most recently 10/28/2017. TECHNIQUE: Lateral and axial views of the right knee were obtained. AP bilateral standing view of the knees was obtained. FINDINGS: The right knee joint compartments are well-maintained. There is mild to moderate tricompartment peripheral osteophyte formation, most pronounced in the lateral compartment. No fracture, dislocation or significant joint effusion is seen. There is no foreign body. The lateral and medial joint space compartments of the left knee are well-maintained and show peripheral osteophyte formation, moderate in the lateral compartment and mild in the medial compartment. There is intact orthopedic hardware applied to the distal left femur. No fracture or dislocation is seen. There is no significant varus or valgus configuration bilaterally. IMPRESSION: 1. There is osteoarthritic change of the bilateral knees, most pronounced in the respective lateral compartments. 2. There is intact orthopedic hardware applied to the distal left femur. 3. There is no significant varus or valgus configuration bilaterally. Assessment & Plan Assessment & Plan (1) Bilateral chronic knee pain: Code(s): M25.561 - Pain in right knee; M25.562 - Pain in left knee; G89.29 - Other chronic pain (2) Bilateral primary osteoarthritis of knee: Code(s): M17.0 - Bilateral primary osteoarthritis of knee (3) Hx of knee surgery: Comment: rt patella-2012/lt osteotomy-2015 Code(s): Z98.890 - Other specified postprocedural states Plan Patient presents with global bilateral knee pain with history of previous knee surgeries and unsuccessful treatments with previous multiple providers, including Rheumatology, Orthopedics, and Pain management clinic. She cannot recall previous pain management clinic and due to significant pain is not interested to pursue physical therapy at this time. Patient reports opioid medications in the past have been the most effective and she requests for opioid medication to be prescribed today. I have informed patient that our office does not offer opioid prescribing at this time. We discussed diagnostic genicular nerve blocks for potential peripheral nerve stimulation or RFA procedures to provide patient's longer-term pain relief. Informational pamphlets were provided in Kazakh to patient and her family today. Patient is very hesitant to worse interventional treatments at this time. Patient will notify our office if she is interested in those interventions discussed today. Script was provided for gabapentin today. Side effects and precautions were reviewed with patient. All questions and concerns have been answered. Follow up for medication review and sooner as needed. Medications: New gabapentin 300 mg PO BID 60 caps 0RF pain G89.29 - Other chronic pain, M25.561 - Pain in right knee, M25.562 - Pain in left knee Coding Level of Care Code New Pt Level 4 (89231) Diagnoses Bilateral chronic knee pain M25.561; M25.562; G89.29 Bilateral primary osteoarthritis of knee M17.0 Hx of knee surgery Z98.890
[2023-02-25 15:10] VITALS: BP 136/80; PULSE 72; O2SAT 98; BMI 40.6
== END 2023-02-25 15:29 | disposition home or self-care (01) ==
PROVIDERS: PCP Emergency Medicine; Visit Provider Nurse Practitioner Family
DX: M25.561 Pain in right knee (principal); M25.562 Pain in left knee; G89.29 Other chronic pain; M17.0 Bilateral primary osteoarthritis of knee; Z98.890 Other specified postprocedural states
CPT/HCPCS: 99204

== ENCOUNTER → 2023-02-25 14:59 | Outpatient (BNVA) | payer MEDICAID, SELFPAY | PROVIDERS: PCP Emergency Medicine; Visit Provider Nurse Practitioner Family | DX: M17.0 Bilateral primary osteoarthritis of knee (principal); M25.561 Pain in right knee; M25.562 Pain in left knee; G89.29 Other chronic pain; Z98.890 Other specified postprocedural states | CPT/HCPCS: 99212 ==

== ENCOUNTER 2023-03-04 08:37 | Outpatient (REF) | payer MEDICAID, SELFPAY ==
--- NOTE | ~2023-03-04 | CT_ITS ---
EXAMINATION: CT head/brain wo IV con CLINICAL INFORMATION: Reason for Exam MEMORY LOSS COMPARISON: None. TECHNIQUE: Contiguous axial imaging was performed from the skull base to vertex without intravenous contrast. Sagittal and coronal reformatted images were obtained. This CT examination was performed using dose optimization techniques as appropriate, variously including the following: * Automated exposure control * Adjustment of mA and/or kV according to patient size (this includes techniques or standardized protocols for targeted exams where dose is matched to indication/reason for exam; i.e. extremities or head) Use of iterative reconstruction technique DLP: 709.54 mGy-cm FINDINGS: No acute osseous or soft tissue abnormality. The mastoid air cells and visualized portions of the paranasal sinuses are well aerated. There is no evidence of acute intracranial hemorrhage or territorial infarction. No abnormal mass effect or midline shift is seen. Gan to white matter differentiation is well preserved. No extra-axial fluid collections are identified. No hydrocephalus. No significant volume loss. Patchy periventricular and deep white matter hypoattenuation is consistent with mild small vessel ischemic changes. CT/CT head/brain wo IV con IMPRESSION: 1. No acute intracranial abnormality 2. Mild chronic microangiopathy.
== END 2023-03-04 08:38 | disposition home or self-care (01) ==
LOC: HO.CT 08:37
PROVIDERS: PCP Emergency Medicine; Visit Provider Nurse Practitioner Primary Care
DX: R41.3 Other amnesia (principal)
CPT/HCPCS: 70450

== ENCOUNTER 2023-03-18 12:55 | Outpatient (REF) | payer MEDICAID, SELFPAY ==
--- NOTE | ~2023-03-18 | MM_ITS ---
EXAMINATION: MM SCREENING DIGITAL BREAST TOMOSYNTHESIS, BILATERAL CLINICAL INFORMATION: Screening. Asymptomatic. COMPARISON: Mammography: This study is compared with prior exams dating back to 2017. TECHNIQUE: Digital breast tomosynthesis is performed in both the craniocaudal and mediolateral oblique views along with computer-aided detection (CAD). Synthesized 2D images are generated from the tomosynthesis. FINDINGS: The breasts are almost entirely fatty (ACR BI-RADS breast composition Category a). There are no significant masses, abnormal calcifications, or other abnormalities. MM/MM tomosynthesis screening BI IMPRESSION: No mammographic evidence of malignancy. ASSESSMENT: BI-RADS BI-RADS 1 - Negative RECOMMENDATION: Routine annual mammography screening. 1 year F/U This examination should not preclude the clinical evaluation of a suspicious palpable abnormality. This patient's information was entered into a reminder system with a target due date for their next mammogram.
== END 2023-03-18 12:56 | disposition home or self-care (01) ==
LOC: HO.MAMMO 12:55
PROVIDERS: PCP Nurse Practitioner Primary Care; Visit Provider Nurse Practitioner Primary Care
DX: Z12.31 Encounter for screening mammogram for malignant neoplasm of breast (principal); Z13.820 Encounter for screening for osteoporosis; Z78.0 Asymptomatic menopausal state
CPT/HCPCS: 77063; 77067; 77080

== ENCOUNTER → 2023-03-18 13:15 | Outpatient (BNV) | payer MEDICAID, SELFPAY | PROVIDERS: PCP Nurse Practitioner Primary Care; Visit Provider Radiology Diagnostic Radiology | DX: Z12.31 Encounter for screening mammogram for malignant neoplasm of breast (principal) | CPT/HCPCS: 77063; 77067 ==

== ENCOUNTER 2023-05-18 12:52 | Outpatient (REF) | payer MEDICAID, SELFPAY ==
[2023-05-18 16:12] LABS: Basophils Percent Auto 0.3 % (0-2); Eosinophils Absolute Auto 0.2 X10*3/uL (0.0-0.4); Eosinophils Percent Auto 3.3 % (0-4); Hematocrit 39.4 % (37.0-47.0); Imm Gran Abs Auto 0.02 X10*3/uL (0.00-0.03); Imm Gran Pct Auto 0.3 % (0.0-0.4); MANUAL DIFF FLAG SCAN; Monocytes Absolute Auto 0.3 X10*3/uL (0.1-1.2); Red Cell Distribution Width 12.2 % (11.0-16.0); SCAN SMEAR FLAG 1
[2023-05-18 16:13] LABS: Hemoglobin 12.3 g/dl (12.0-16.0); Lymphocytes Absolute Auto 1.2 X10*3/uL (1.2-4.9); Lymphocytes Percent Auto 19.3 % (20-40); Mean Corpuscular HGB Conc 31.2 g/dl (31.0-35.0); Mean Corpuscular Hemoglobin 30.1 pg (27.0-33.0); Mean Corpuscular Volume 96.3 fL (80.0-98.0); Mean Platelet Volume 13.1 fL (9.4-12.3); Monocytes Percent Auto 5.4 % (2-11); Neutrophils Absolute Auto 4.4 x10*3/uL (2.0-8.3); Neutrophils Percent Auto 71.4 % (45-73); PLT CLUMP 1; Red Blood Count 4.09 X10*6/uL (4.20-5.50)
[2023-05-18 16:14] LABS: Rheumatoid Factor < 13.0 IU/mL (<15.0)
[2023-05-18 16:15] LABS: Alanine Aminotransferase 24 U/L (0-31); Albumin Level 3.9 g/dL (3.5-5.0); Alkaline Phosphatase 93 U/L (39-117); Anion Gap 11 (12-20); Aspartate Amino Transferase 21 U/L (5-31); Bilirubin Total 0.5 mg/dL (0.0-1.0); Blood Urea Nitrogen 9 mg/dL (9-16); C Reactive Protein 2.08 mg/dL (< or = 0.50); Carbon Dioxide 25 mmol/L (22-29); Chloride 109 mmol/L (96-108); Cholesterol 233 mg/dL (<200); Estimated Glomerular Filt Rate > 60; Glucose Random 109 mg/dL (60-115); HDL Cholesterol 54 mg/dL (>40); LDL Cholesterol Calculated 144 mg/dL (<100); Potassium 3.3 mmol/L (3.3-5.1); Sodium 142 mmol/L (135-145); Total Protein 7.6 g/dL (6.5-8.0); Triglycerides 175 mg/dL (<150)
[2023-05-18 16:23] LABS: PLT ABN DIST 1; Platelet Count 203 X10*3/uL (160-400); White Blood Count 6.1 X10*3/uL (4.8-10.8)
[2023-05-18 16:45] LABS: Folate 8.5 ng/mL (> or = 4.0); Vitamin B12 310 pg/mL (200-900)
[2023-05-18 16:49] LABS: Erythrocyte Sedimentation Rate 28 MM/HR (0-20)
[2023-05-18 18:04] LABS: SLIDE REVIEW VERIFIED
[2023-05-18 18:22] LABS: Creatinine Urine 250.88 mg/dL
[2023-05-19 08:19] LABS: HIV AB/AG Nonreactive (Nonreactive); HIV Num 1 0.04 S/CO (0.00-0.99); Syphilis Screen Nonreactive (Nonreactive)
[2023-05-21 11:33] LABS: Anti Nuclear Antibody Screen NEGATIVE (NEGATIVE)
== END 2023-05-18 12:53 | disposition home or self-care (01) ==
LOC: HO.HHCL 12:52
PROVIDERS: Visit Provider Nurse Practitioner Primary Care
DX: R41.3 Other amnesia (principal); M35.9 Systemic involvement of connective tissue, unspecified; I10 Essential (primary) hypertension; Z13.220 Encounter for screening for lipoid disorders
CPT/HCPCS: 36415; 80053; 80061; 82043; 82570; 82607; 82746; 84443; 85025; 85652; 86038; 86140; 86431; 86780; 87389

== ENCOUNTER 2023-10-08 13:44 | Outpatient (AMB) | payer MEDICAID, SELFPAY ==
--- NOTE | 2023-10-08 13:55 | A.OFFVIS_ITS ---
Vital Signs 10/08/23 14:16 Height 5 ft 4 in Weight 242 lb BMI 41.5 BP 160/86 H Blood Pressure Location Lt brachial Position Sitting Pulse 92 Intake Visit Reasons: Colonoscopy Screening Intake Note: Patient new consult for 2nd pre colonoscopy screening. Patient cc: swallowing problems even with saliva. Denies any other GI issues. Package Center Supervisor Required: No Accompanied by: Family/Other Allergies hydroxychloroquine Allergy (Verified 10/08/23 13:55) Unknown HPI HPI Colonoscopy Screening: Details: 53 year old? female is here today for pre colonoscopy screening.? Patient was sent to us by her PCP.? Patient had colonoscopy in 2019 at the same time she also had upper endoscopy. Patient was treated with PPI in the past, however reports that she has not been taking any PPIs in the past several months. Patient reports to have epigastric pain postprandially and dyspepsia. Patient f eels like acid is coming up all the way to her throat. Patient also feels mucus coming up. Patient has no trouble swallowing food or liquid. Patient denies any melena, hematochezia, unintentional weight loss or ribbon like stools.? Denies history of difficulty with sedation or anesthesia in the past.? Negative for history of sleep apnea, however just recently had Mckeon study test and is waiting for results..? Denies any history of cardiac, renal, pulmonary, or hepatic disease.?? No history of infectious? diseases like hepatitis A, B, C, HIV or tuberculosis.? Patient is not on any anticoagulation therapy. [facility] Medical History (Updated 02/28/23 @ 20:54 by LENI Rodriguez) Lupus Arthritis Anemia History of anxiety Depression Personal history of tuberculosis HTN (hypertension) Surgical History Hx of total hysterectomy with removal of both tubes and ovaries Hx of dilation and curettage History of esophagogastroduodenoscopy (EGD) H/O colonoscopy Hx of knee surgery Hx of lithotripsy Hx of appendectomy Social History Alcohol intake: never Years Smoked: 36 Substance Use Type: Marijuana Review of Systems Const Denies weight gain and Denies weight loss ENT Reports no additional complaints, Denies dysphagia and Denies odynophagia Card Reports no additional complaints Resp Reports no additional complaints GI Denies abdominal pain, Denies belching, Denies melena, Reports bloating, Denies change in bowel habits, Denies dysphagia, Denies excessive flatus, Reports dyspepsia, Reports heartburn, Denies diarrhea, Denies loose stools, Denies nausea, Denies odynophagia and Denies vomiting Reports no additional complaints Musc Reports no additional complaints Neuro Reports no additional complaints Psych Reports no additional complaints Endo Reports no additional complaints Physical Exam Vital Signs: Last Vital Signs Pulse 92 10/08/23 14:16 BP 160/86 H 10/08/23 14:16 BMI result Body Mass Index 41.5 Const General: healthy appearing and no acute distress Nutritional Appearance: obese Orientation/consciousness: patient oriented x3 Resp Effort & Inspection: normal respiratory effort, able to speak in complete sentences, no tracheal deviation and symmetric chest movement Auscultation: clear to auscultation bilaterally Cardio Rate: regular rate GI Inspection: Yes normal to inspection, No distended and Yes obesity Palpation (GI): Soft to palpation, not firm, nontender and No hepatosplenomegaly present Auscultation: normal bowel sounds General: Yes no CVA tenderness Back/Spine/Pelvis Back: no CVA tenderness Skin General skin exam: elasticity normal, turgor normal and dry skin Neuro General: patient oriented x3 Psych Appearance: grossly normal Mental Status: mental status grossly normal Assessment & Plan Assessment & Plan (1) Screen for colon cancer: Code(s): Z12.11 - Encounter for screening for malignant neoplasm of colon (2) Postprandial epigastric pain: Code(s): R10.13 - Epigastric pain (3) GERD (gastroesophageal reflux disease): Code(s): K21.9 - Gastro-esophageal reflux disease without esophagitis Qualifiers: Esophagitis presence: esophagitis presence not specified Qualified Code(s): K21.9 - Gastro-esophageal reflux disease without esophagitis (4) Postprandial abdominal bloating: Code(s): R14.0 - Abdominal distension (gaseous) Plan Will check for H pylori today. Will treat empirically if positive. Discussed with patient avoiding dietary triggers and late night snacking. Will start patient on PPI and H2 jayashree. Patient will start pantoprazole in the morning and famotidine at bedtime. Discussed with patient the importance of staying upright for minimum 3 hours after meals. Patient will return in 6 weeks to discuss going for colonoscopy and upper endoscopy, however we will book the pr ocedure today to avoid delay. Patient is agreeable to this plan and verbalizes understanding of instructions. She was given the opportunity to ask questions and all questions answered. Thank you for allowing me to participate in her care Orders: Orders H Pylori Breath Test Today K21.9 - Gastro-esophageal reflux disease without esophagitis Medications: New pantoprazole take one tablet half an hour before breakfast 40 mg PO DAILY 30 tabs 2RF K21.9 - Gastro-esophageal reflux disease without esophagitis famotidine (Pepcid) 20 mg PO BEDTIME 30 tabs 3RF K21.9 - Gastro-esophageal reflux disease without esophagitis
[2023-10-08 14:16] VITALS: BP 160/86; PULSE 92; BMI 41.5
== END 2023-10-08 14:54 | disposition home or self-care (01) ==
PROVIDERS: PCP Nurse Practitioner Primary Care; Visit Provider Nurse Practitioner Family
DX: Z12.11 Encounter for screening for malignant neoplasm of colon (principal); R10.13 Epigastric pain; K21.9 Gastro-esophageal reflux disease without esophagitis; R14.0 Abdominal distension (gaseous); Z01.818 Encounter for other preprocedural examination
CPT/HCPCS: 99204

== ENCOUNTER → 2023-10-08 13:44 | Outpatient (BNVA) | payer MEDICAID, SELFPAY | PROVIDERS: PCP Nurse Practitioner Primary Care; Visit Provider Nurse Practitioner Family | DX: K21.9 Gastro-esophageal reflux disease without esophagitis (principal); R10.13 Epigastric pain; R14.0 Abdominal distension (gaseous) | CPT/HCPCS: 99212 ==

== ENCOUNTER 2023-10-08 14:55 | Outpatient (REF) | payer MEDICAID, SELFPAY ==
[2023-10-13 09:49] LABS: H Pylori Breath Test Negative (Negative)
== END 2023-10-08 14:56 | disposition home or self-care (01) ==
LOC: HO.LNP 14:55
PROVIDERS: Visit Provider Nurse Practitioner Family
DX: K21.9 Gastro-esophageal reflux disease without esophagitis (principal)
CPT/HCPCS: 83013; 99212

== ENCOUNTER 2023-10-26 09:31 | Outpatient (AMB) | payer MEDICAID, SELFPAY ==
--- NOTE | 2023-10-26 09:41 | MHC.OFFVIS ---
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, pulmonary HTN Intake Note: New patient dx HTN and pulmonary HTN c/o heart racing at time and chest pain Marriage Performer: Marriage Performer Present Accompanied by: Daughter Allergies hydroxychloroquine Allergy (Verified 10/08/23 13:55) Unknown Medication List - Last Reconciled 10/26/23 by Willy Cain MD amlodipine 10 mg PO DAILY celecoxib 200 mg PO DAILY duloxetine 60 mg PO QAM estradiol 1 patch transdermal 2XW famotidine (Pepcid) 20 mg PO BEDTIME hydrochlorothiazide 25 mg PO DAILY hydroxychloroquine (Plaquenil) 200 mg PO BID lisinopril 40 mg PO DAILY pantoprazole 40 mg PO DAILY quetiapine 300 mg PO BEDTIME HPI Comments Details: Sonia was referred here for cardiology evaluation due to multiple cardiac symptoms. She presents here with a niece who acts as automotive parts interpreter. Declined a certified automotive parts interpreter. Patient has longstanding history of hypertension, obesity, bilateral osteoarthritis of knee with replacement, connective tissue disease of unclear type, acid reflux disease. Patient is referred here because of the last couple of years she has been having increasing symptoms of retrosternal chest tightness along with shortness of breath and also has symptoms of palpitations. The symptoms of chest tightness shortness of breath are not exertion related but can happen even at rest. Symptoms last for few minutes and then dissipate. She has not able to exercise much due to pain in her knees. Has not been able to lose weight. She is taking all her medications and says a blood pressure is generally well controlled. She has no history of diabetes hyperlipidemia. No strong family history of premature coronary artery disease. She also has symptoms of palpitation where she notices rapid heart rate intermittently. Symptoms are not associated with chest tightness and shortness of breath. [facility] Medical History Lupus Arthritis Anemia History of anxiety Depression Personal history of tuberculosis HTN (hypertension) Surgical History Hx of total hysterectomy with removal of both tubes and ovaries Hx of dilation and curettage History of esophagogastroduodenoscopy (EGD) H/O colonoscopy Hx of knee surgery Hx of lithotripsy Hx of appendectomy Social History Alcohol intake: never Years Smoked: 36 Substance Use Type: Marijuana Review of Systems Const Denies chills, Denies daytime sleepiness, Denies fatigue, Denies fever(s), Denies frequent falls, Denies poor appetite, Denies snoring, Denies stops breathing during sleep, Denies weakness, Denies weight gain and Denies weight loss Eyes Denies loss of vision ENT Denies dizziness and Denies hearing loss Card Denies chest pain, Denies claudication, Denies leg edema, Denies lightheadedness, Denies palpitations, Denies dyspnea, Denies dyspnea on exertion and Denies orthopnea Resp Denies cough, Denies excessive phlegm production, Denies dyspnea, Denies dyspnea on exertion, Denies snoring and Denies wheezing GI Denies abdominal pain, Denies hematochezia, Denies change in bowel habits, Denies nausea and Denies vomiting Denies urinary frequency and Denies dysuria Musc Denies arthralgias, Denies muscle weakness, Denies numbness and Denies other (frequent falls) Skin/Breast Denies nail changes and Denies rash Neuro Denies Abnormal speech present, Denies dizziness, Denies frequent falls, Denies loss of vision, Denies memory loss, Denies numbness and Denies weakness Psych Denies depression and Denies memory loss Endo Denies fatigue and Denies palpitations Calixto/Lymph Reports easy bruising and Reports other (anemia) Aller/Immun Denies wheezing Physical Exam Vital Signs: Last Vital Signs Pulse 83 10/26/23 09:45 BP 154/86 H 10/26/23 09:45 BMI result Body Mass Index 42.8 Const General: cooperative, comfortable, no acute distress, alert, awake and Physically active Nutritional Appearance: obese morbidly obese Orientation/consciousness: patient oriented x3 Limitations: no limitations HEENT Head: Yes normocephalic and Yes atraumatic Neck Neck: Yes trachea midline, Yes supple and Yes no JVD Resp Effort & Inspection: normal respiratory effort Auscultation: clear to auscultation bilaterally Cardio Jugular venous distension: no JVD Rate: regular rate Rhythm: regular rhythm Heart sounds: S1 normal heart sound present, S2 normal heart sound present, no click, no gallops, no murmurs and no rubs GI Inspection: Yes obesity Auscultation: normal bowel sounds Skin General skin exam: no rashes or lesions noted Neuro General: patient oriented x3 and no focal motor deficits Speech: No Abnormal speech present Extrem General: Yes no clubbing, cyanosis or edema Psych Appearance: grossly normal Office Procedures EKG Details: EKG shows normal sinus rhythm with normal EKG [id number], Complete Assessment & Plan Assessment & Plan (1) Atypical chest pain: Code(s): R07.89 - Other chest pain Plan: Patient with symptoms of chest tightness along with shortness of breath. These are atypical symptoms although could represent myocardial ischemia given her multiple risk factors. Would suggest a vasodilating myocardial perfusion imaging given her inability to perform treadmill exercise. This will be scheduled in near future. Further treatment based on the findings. Will also suggest an echocardiogram to evaluate LV systolic and diastolic function to evaluate for pulmonary hypertension given the possible diagnose of underlying connective tissue disease. He is tests will be scheduled in near future. Further treatment based on the findings. Meanwhile continue aggressive risk factor modification with blood pressure control. Blood pressure is currently well optimized. Target goal blood pressure less than 130/84. Advised to monitor blood pressure at home maintain a log. Measure lipid and target goal LDL at least less than 100 mg/dL. Encouraged to increase activity level and participate in weight loss program. Consider sleep apnea evaluation. (2) SOB (shortness of breath): Code(s): R06.02 - Shortness of breath Plan: Shortness of breath, diagnostic workup as above. (3) Palpitations: Code(s): R00.2 - Palpitations Plan: Patient with intermittent symptoms of palpitation. At risk for atrial fibrillation. Also possible that she has extra systoles. Further treatment after Holter monitoring to assess for any significant arrhythmias that may require pharmacotherapy. At this point time will avoid any pharmacotherapy. Avoidance of stimulants was discussed. Consider workup for sleep apnea as above. Will follow up in the clinic after above-mentioned test. Thank you for allowing me to partake in her care Coding Level of Care Code New Pt Level 4 (84456) Diagnoses Atypical chest pain R07.89 SOB (shortness of breath) R06.02 Palpitations R00.2 CPT Codes EKG - CPT: 01234-[id number], Complete ([id number])
[2023-10-26 09:45] VITALS: BP 154/86; PULSE 83; BMI 42.8
== END 2023-10-26 10:17 | disposition home or self-care (01) ==
PROVIDERS: PCP Nurse Practitioner Primary Care; Referring Provider Nurse Practitioner Primary Care; Visit Provider Internal Medicine Cardiovascular Disease
DX: R07.89 Other chest pain (principal); R06.02 Shortness of breath; R00.2 Palpitations
CPT/HCPCS: 93010; 99204

== ENCOUNTER → 2023-10-26 09:31 | Outpatient (BNVA) | payer MEDICAID, SELFPAY | PROVIDERS: PCP Nurse Practitioner Primary Care; Visit Provider Internal Medicine Cardiovascular Disease | DX: R07.89 Other chest pain (principal); R06.02 Shortness of breath; R00.2 Palpitations | CPT/HCPCS: 93005; 99202 ==

== ENCOUNTER → 2023-12-01 12:54 | Outpatient (REF) | payer MEDICAID, SELFPAY ==
--- NOTE | 2023-12-01 12:59 | CA_ITS ---
Transthoracic Echocardiogram Patient (Last, First, Middle): Sonia Camilo, Gender: Female Date of : 1970 Age: 53 Procedure Date: 12/01/2023 Procedure Type: Transthoracic Echocardiogram Location: OP Height: 162.56 cm Weight: 113.4 kg BSA: 2.15 m2 Heart Rate: bpm BP: 134 / 82 mmHg Accessibility Lift Technician: DAVE Referring MD: Willy Cain MD Symptoms: R06.02 - Shortness of breath Study Quality: Good ECG Rhythm: Sinus Conclusions: - The left ventricular systolic function is normal. The visually estimated ejection fraction is between 55-60%. - There is moderately increased left ventricular wall thickness. - The left atrium is severely dilated. - No obvious valvular pathology seen on this study. Findings Left Ventricle Normal left ventricular cavity size. There is moderately increased left ventricular wall thickness. The left ventricular systolic function is normal. The visually estimated ejection fraction is between 55-60%. There is no evidence of regional wall motion abnormalities. Evidence suggests grade I (mild) diastolic dysfunction. Right Ventricle Normal right ventricular cavity size and systolic function. Atria The left atrium is severely dilated. The right atrium is normal in size. Aortic Valve The aortic valve was not well visualized. There is no aortic valve stenosis. There is no aortic valve regurgitation. Mitral Valve There is mild anterior mitral leaflet thickening. There is no mitral valve regurgitation. There is no mitral valve stenosis. Pulmonic Valve The pulmonic valve is likely normal. Tricuspid Valve There is trace tricuspid valve regurgitation. There is no evidence of pulmonary hypertension. Great Vessels The asc aorta is normal in size. Venous The inferior vena cava is normal in size and collapses greater than 50% with inspiration. Pericardium/Pleural There is no evidence of pericardial effusion. Prior Study Comparison Changes noted compared to prior study dated: 07/06/2015. Left ventricular hypertrophy present; increase in left atrial size. Recommendations, Care & Conclusions No obvious valvular pathology seen on this study. Measurements 2D Linear Measurements IVSd: 1.39 0.6-0.9/0.6-1.0 cm LVIDd: 4.58 3.9-5.3/4.2-5.9 cm LVIDd Index: 2.13 2.4-3.2/2.2-3.1 cm/m2 LVIDs: 2.94 2.0-3.6 cm LVPWd: 1.39 0.7-1.1 cm Ao Root: 3.10 2.1-3.5 cm LA Diam: 5.40 2.7-3.8/3.0-4.0 cm LAIDs Index: 2.51 1.5-2.3 cm/m2 LV Mass: 314.72 67-162/88-224 g LV Mass Index: 146.38 43-95/49-115 g/m2 LVOT Diam: 2.30 3.0+(-)1.3 cm 2D Systolic Function EF 4C: 52.10 >55% EF 2C: 52.10 >55% EF BiP: 50.30 >55% Mitral Valve MV VTI: 0.18 MV Pk Yifan: 0.89 MV Mn Yifan: 0.56 MV Pk Grad: 3.00 MV Mn Grad: 1.00 MV Pk E: 0.63 MV PK A: 0.93 MV Decel Time: 139.00 E/A: 0.70 E'Lateral: 5.98 E'Medial: 4.79 E/E' Med: 13.20 E/E' Lat: 10.50 PHT: 41.00 MVA PHT: 5.37 MVA Continuity: 5.28 Decel [place]: 4.52 Aortic Valve AoV Pk Yifan: 1.77 AoV Mn Yifan: 1.08 AoV VTI: 0.37 AoV Pk Grad: 13.00 Aov Mn Grad: 6.00 DIANE Cont.VTI: 2.60 LVOT LVOT Pk Yifan: 1.08 LVOT Mn Yifan: 0.68 LVOT VTI: 0.23 LVOT Pk Grad: 5.00 LVOT Mn Grad: 2.00 LVOT Diam: 2.30 LVOT Area: 4.15 Diastolic Function MV Pk E: 0.63 MV Pk A: 0.93 E/A: 0.70 E'Medial: 4.79 E/E' Med: 13.20 E' Laterial: 5.98 E/E' Lat: 10.50 Tricuspid Valve TR Pk Yifan: 2.11 TR Pk Grad: 18.00 Great Vessels Aorta Ao Root-2D: 3.10 2.0-3.7 cm Ao Asc: 3.10 2.1-3.4 cm Pulmonary Valve PV Pk Yifan: 1.15 Peak PV Grad: 5.00 Updated in Other Vendor System with Status of Final Luis M Mejia MD electronically signed on 12/02/2023 11:56:47 AM with status of Final
--- NOTE | 2023-12-01 13:47 | HM_ITS ---
* Total monitoring time 2 days. * Underlying rhythm is sinus with an average rate of 97/Min. Range 81 to 130/Min. About 36% of the time, rate > 100/Min. * Rare ventricular ectopy. * One episode of monomorphic VT for 20 beats. * Rare supraventricular ectopy. * No significant pauses or AV blocks. * Patient markers used in association with sinus rhythm and sinus tachycardia. * No diary events. MTDD
== END ==
LOC: HO.CARD 12:54
PROVIDERS: PCP Nurse Practitioner Primary Care; Visit Provider Internal Medicine Cardiovascular Disease
DX: R07.89 Other chest pain (principal); R00.2 Palpitations; R06.02 Shortness of breath
CPT/HCPCS: 93225; 93306

== ENCOUNTER → 2023-12-01 12:59 | Outpatient (BNV) | payer MEDICAID, SELFPAY | PROVIDERS: PCP Nurse Practitioner Primary Care; Visit Provider Internal Medicine | DX: I47.29 Other ventricular tachycardia (principal); I49.3 Ventricular premature depolarization | CPT/HCPCS: 93227; 93306 ==

== ENCOUNTER 2023-12-08 11:00 | Outpatient (AMB) | payer MEDICAID, SELFPAY ==
--- NOTE | 2023-12-08 11:03 | A.OFFVIS_ITS ---
Vital Signs 12/08/23 11:09 Height 5 ft 4 in Weight 245 lb 2.464 oz BMI 42.1 BP 134/74 Blood Pressure Location Lt brachial Position Sitting Pulse 90 Pulse Source Pulse Oximeter Pulse Oximetry (%) 95 Oxygen Delivery Method Room Air Comment Pt has long, artificial nails which affects pulse ox reading. Intake Visit Reasons: R/S from 12/05 Intake Note: Sonia presents in office today for a scheduled FUV. CC; Pt was rx'd famotidine and pantoprazole at their last visit. Pt was also ordered an H. Pylori test which was completed prior to this appt. Pt reports that their medications have been working well for them. Pt denies any complications since starting the medications. Pt states that this is controlling their sx well. Allergies hydroxychloroquine Allergy (Verified 12/08/23 11:09) Unknown HPI HPI R/S from 12/05: Details: LAST VISIT Screen for colon cancer Postprandial epigastric pain GERD (gastroesophageal reflux disease) Postprandial abdominal bloating Plan Will check for H pylori today. Will treat empirically if positive. Discussed with patient avoiding dietary triggers and late night snacking. Will start patient on PPI and H2 jayashree. Patient will start pantoprazole in the morning and famotidine at bedtime. Discussed with patient the importance of staying upright for minimum 3 hours after meals. Patient will return in 6 weeks to discuss going for colonoscopy and upper endoscopy, however we will book the procedure today to avoid delay. Patient is agreeable to this plan and verbalizes understanding of instructions. She was given the opportunity to ask questions and all questions answered. ? Thank you for allowing me to participate in her care Orders Orders H Pylori Breath Test Today K21.9 Medications New pantoprazole take one tablet half an hour before breakfast 40 mg PO DAILY 30 tabs 2RF K21.9 famotidine (Pepcid) 20 mg PO BEDTIME 30 tabs 3RF K21.9 TODAY'S VISIT Patient is here today for follow-up. Patient reports that she has been doing well. Takes pantoprazole in the morning and famotidine at bedtime. Patient reports that her symptoms of acid reflux have suppressed. Patient also tried to avoid eating late at night. Patient is also avoiding food that is greasy and spicy. Overall patient reports that she has been doing well. Patient is scheduled to go for stress test. Patient should be cleared before going for colonoscopy and upper endoscopy. PFS Medical History Lupus Arthritis Anemia History of anxiety Depression Personal history of tuberculosis HTN (hypertension) Surgical History Hx of total hysterectomy with removal of both tubes and ovaries Hx of dilation and curettage History of esophagogastroduodenoscopy (EGD) H/O colonoscopy Hx of knee surgery Hx of lithotripsy Hx of appendectomy Social History Alcohol intake: never Years Smoked: 36 Substance Use Type: Marijuana Review of Systems Const Denies weight gain and Denies weight loss ENT Reports no additional complaints, Denies dysphagia and Denies odynophagia Card Reports no additional complaints Resp Reports no additional complaints GI Denies abdominal pain, Denies belching, Denies melena, Denies bloating, Denies change in bowel habits, Denies dysphagia, Denies excessive flatus, Denies dyspepsia, Denies heartburn, Denies diarrhea, Denies loose stools, Denies nausea, Denies odynophagia and Denies vomiting Musc Reports no additional complaints Neuro Reports no additional complaints Psych Reports no additional complaints Endo Reports no additional complaints Physical Exam Vital Signs: Last Vital Signs Pulse 90 12/08/23 11:09 BP 134/74 12/08/23 11:09 Pulse Ox 95 12/08/23 11:09 Oxygen Delivery Method Room Air 12/08/23 11:09 BMI result Body Mass Index 42.1 Const General: healthy appearing and no acute distress Nutritional Appearance: obese Orientation/consciousness: patient oriented x3 Resp Effort & Inspection: normal respiratory effort, able to speak in complete sentences, no tracheal deviation and symmetric chest movement Auscultation: clear to auscultation bilaterally Cardio Rate: regular rate GI Inspection: Yes normal to inspection, No distended and Yes obesity Palpation (GI): Soft to palpation, not firm, nontender and No hepatosplenomegaly present Auscultation: normal bowel sounds General: Yes no CVA tenderness Back/Spine/Pelvis Back: no CVA tenderness Skin General skin exam: elasticity normal, turgor normal and dry skin Neuro General: patient oriented x3 Psych Appearance: grossly normal Mental Status: mental status grossly normal Results Reviewed Results Reviewed: Laboratory Tests 10/08/23 14:55 H. pylori Breath Test Negative Assessment & Plan Assessment & Plan (1) Screen for colon cancer: Code(s): Z12.11 - Encounter for screening for malignant neoplasm of colon (2) Postprandial epigastric pain: Code(s): R10.13 - Epigastric pain (3) GERD (gastroesophageal reflux disease): Code(s): K21.9 - Gastro-esophageal reflux disease without esophagitis Qualifiers: Esophagitis presence: esophagitis presence not specified Qualified Code(s): K21.9 - Gastro-esophageal reflux disease without esophagitis (4) Postprandial abdominal bloating: Code(s): R14.0 - Abdominal distension (gaseous) Plan Continue current management with pantoprazole and famotidine. Avoid dietary triggers and late night snacking. Patient has stress test ordered for December. Patient should be cleared by Cardiology before going for procedure. Patient admits to having shortness of breath with activity. History of connective tissue disorder and pulmonary hypertension. Coding Level of Care Code Est Pt Level 3 (39361) Diagnoses Screen for colon cancer Z12.11 Postprandial epigastric pain R10.13 Gastroesophageal reflux disease, unspecified whether esophagitis present K21.9 Esophagitis presence: esophagitis presence not specified Postprandial abdominal bloating R14.0 Time Spent (min) 30 Comment 20 minutes spent with patient and additional 10 minutes spent reviewing her records
[2023-12-08 11:09] VITALS: BP 134/74; PULSE 90; O2SAT 95; BMI 42.1
== END 2023-12-08 11:35 | disposition home or self-care (01) ==
PROVIDERS: PCP Nurse Practitioner Primary Care; Visit Provider Nurse Practitioner Family
DX: Z12.11 Encounter for screening for malignant neoplasm of colon (principal); R10.13 Epigastric pain; K21.9 Gastro-esophageal reflux disease without esophagitis; R14.0 Abdominal distension (gaseous); Z01.818 Encounter for other preprocedural examination
CPT/HCPCS: 99213

== ENCOUNTER → 2023-12-08 11:00 | Outpatient (BNVA) | payer MEDICAID, SELFPAY | PROVIDERS: PCP Nurse Practitioner Primary Care; Visit Provider Nurse Practitioner Family | DX: Z12.11 Encounter for screening for malignant neoplasm of colon (principal); R10.13 Epigastric pain; R14.0 Abdominal distension (gaseous); K21.9 Gastro-esophageal reflux disease without esophagitis | CPT/HCPCS: 99212 ==

== ENCOUNTER 2024-05-03 18:49 | Emergency (ER) | payer MEDICAID, SELFPAY ==
--- NOTE | ~2024-05-03 | CT_ITS ---
EXAMINATION: CT ABDOMEN AND PELVIS WITHOUT CONTRAST CLINICAL INFORMATION: Right-sided flank pain COMPARISON: CT abdomen pelvis 11/05/2021 TECHNIQUE: Multidetector volumetric imaging was performed from the superior aspect of the liver through the pubic symphysis. Sagittal and coronal reformatted images were obtained on the technologist's workstation. This CT examination was performed using dose optimization techniques as appropriate, variously including the following: *Automated exposure control *Adjustment of mA and/or kV according to patient size (this includes techniques or standardized protocols for targeted exams where dose is matched to indication/reason for exam; i.e. extremities or head) *Use of iterative reconstruction technique DLP: 910 mGy-cm FINDINGS: LUNG BASES: The visualized lung bases are unremarkable. LIVER, GALLBLADDER, AND BILIARY TREE: The liver is mildly enlarged measuring almost 18 cm in greatest length. Attenuation and shape is normal. No focal hepatic lesion or biliary ductal dilatation is present. The gallbladder is unremarkable with no evidence of radiopaque gallstones, gallbladder wall thickening, or obvious pericholecystic inflammatory changes. PANCREAS: Unremarkable. SPLEEN: Unremarkable. ADRENAL GLANDS: Unremarkable. KIDNEYS AND URETERS: The kidneys are normal in size, shape, and attenuation. Previously seen obstructing stone in the left proximal ureter with associated hydronephrosis is no longer present. There is a nonobstructing 2 mm calculus in the left mid kidney. There is nonspecific stranding seen around both kidneys with some small amount of fluid in the anterior pararenal space on the right which is around the right ureter. There is mild right-sided pelvocaliectasis. There is a punctate less than 2 mm sized calcification seen overlying the course of the mid to distal right ureter (4:506) which was not seen at the time of the prior study. This likely represents an obstructing calculus There is some mild thickening of the uroepithelium bilaterally. BLADDER: Unremarkable. GASTROINTESTINAL TRACT: The small and large bowel are unremarkable aside from a few scattered colonic diverticula without diverticulitis. The appendix is not seen with certainty.. ABDOMINAL WALL: Tiny periumbilical hernia seen containing only fat. Again seen is a lipoma in the right lateral abdominal wall musculature LYMPH NODES: No retroperitoneal lymphadenopathy. VASCULAR: Unremarkable. PELVIC VISCERA: The uterus is not seen. An abnormal adnexal mass is not detected. No free intraperitoneal fluid is present. OSSEOUS STRUCTURES: Unremarkable. CT/CT abdomen pelvis wo IV con IMPRESSION: 1. There is a punctate less than 2 mm sized calcification seen overlying the course of the mid to distal right ureter which was not seen at the time of the prior study. This likely represents an obstructing calculus. 2. There is nonspecific stranding seen around both kidneys with some small amount of fluid in the anterior pararenal space on the right which is around the right ureter. There is some mild thickening of the uroepithelium bilaterally. 3. Other incidental findings as described above. Fleischner guidelines were followed. Electronically signed by: Virgil Diaz MD 05/04/2024 12:48 AM [facility] [place]
[2024-05-03 19:07] VITALS: BP 177/90; PULSE 108; O2SAT 95
[2024-05-03 19:34] VITALS: BP 194/103; PULSE 95; RESP 18; TEMP 36.7; O2SAT 100; BMI 42.2
--- NOTE | 2024-05-03 19:40 | ED.GENADULT ---
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 Patient reports that she has had flank pain for 4 days. She reports today she developed dizziness. Denies any fevers, chills. Her pain is 10/10 She reports her pain radiates in the right flank to the abdomen Denies any difficulty urinating Denies any chest pain, shortness of breath, palpitations. No other complaints or concerns at this time Related Data Home Medications ?Medication ?Instructions ?Recorded ?Confirmed amlodipine 10 mg tablet 10 mg PO DAILY 05/30/20 10/26/23 hydroxychloroquine 200 mg tablet 200 mg PO BID 05/30/20 10/26/23 (Plaquenil) lisinopril 40 mg tablet 40 mg PO DAILY 05/30/20 10/26/23 celecoxib 200 mg capsule 200 mg PO DAILY 10/26/23 10/26/23 duloxetine 30 mg capsule,delayed 60 mg PO QAM 10/26/23 10/26/23 release estradiol 0.1 mg/24 hr semiweekly 1 patch transdermal 2XW 10/26/23 10/26/23 transdermal patch hydrochlorothiazide 25 mg tablet 25 mg PO DAILY 10/26/23 10/26/23 quetiapine 200 mg tablet 300 mg PO BEDTIME 10/26/23 10/26/23 Previous Rx's ?Medication ?Instructions ?Recorded famotidine 20 mg tablet (Pepcid) 20 mg PO BEDTIME #30 tabs 01/24/24 pantoprazole 40 mg tablet,delayed 40 mg PO DAILY #30 tabs 01/24/24 release cefuroxime axetil 500 mg tablet 500 mg PO Q12H #14 tabs 05/04/24 tamsulosin 0.4 mg capsule 0.4 mg PO DAILY #7 caps 05/04/24 tramadol 50 mg tablet 50 mg PO Q6H PRN pain (scale score 05/04/24 4-6) #12 tabs Allergies Allergy/AdvReac Type Severity Reaction Status Date / Time hydroxychloroquine Allergy Unknown Verified 05/03/24 19:37 Review of Systems Constitutional: Constitutional: Denies body ache(s), Denies chills, Denies fever(s) and Denies headache(s) ENT: Denies vertigo, Reports dizziness and Denies headache(s) Cardiovascular: Cardiovascular: Denies chest pain Respiratory: Respiratory: Denies cough Gastrointestinal: Gastrointestinal: Reports abdominal pain and Denies nausea Musculoskeletal: Musculoskeletal: Denies back pain Integumentary/Breasts: Skin/Breast: Denies rash Neurologic: Denies vertigo, Reports dizziness and Denies headache(s) Psychiatric: Psychiatric: Denies anxiety PMFSH Past Medical History Medical History Lupus Arthritis Anemia History of anxiety Depression Personal history of tuberculosis HTN (hypertension) Surgical History Hx of total hysterectomy with removal of both tubes and ovaries Hx of dilation and curettage History of esophagogastroduodenoscopy (EGD) H/O colonoscopy Hx of knee surgery Hx of lithotripsy Hx of appendectomy Social History Social History Alcohol intake: never Years Smoked: 36 Substance Use Type: Marijuana Advance Directives: No Advance Directives Information Provided: No Do you have a plan to hurt others: No Plan Physical Exam ED Vital Signs: Vital Signs - 24 hr 05/03/24 19:34 05/04/24 01:09 05/04/24 01:51 Temperature 98.1 F 98.5 F 98.5 F Pulse Rate 95 94 94 Respiratory Rate 18 16 16 Blood Pressure 194/103 H 138/87 138/87 Pulse Oximetry 100 98 98 Oxygen Delivery Method Room Air Room Air Room Air BMI result Body Mass Index 42.2 Const General: healthy appearing, comfortable, no acute distress, alert and awake Nutritional Appearance: well nourished Orientation/consciousness: patient oriented x3 HENMT Head: Yes normocephalic and Yes atraumatic Eyes Eyelids: Yes eyelids normal Conjunctivae: conjunctivae normal Sclerae: sclerae normal Corneas: corneas normal Pupils: Equal, round and reactive pupils present EOM: EOMs intact bilaterally Neck Neck: Yes full ROM Resp Effort & Inspection: normal respiratory effort, able to speak in complete sentences and not labored Cardio Rate: regular rate Rhythm: regular rhythm GI Inspection: No distended Palpation (GI): Soft to palpation, not firm, Tenderness to palpation present (GI) in the RLQ, no guarding and not rigid General: Yes CVA tenderness (right) Back/Spine/Pelvis Back: CVA tenderness (right) Skin General skin exam: elasticity normal Neuro General: patient oriented x3 Cranial nerves: Yes Equal, round and reactive pupils present and Yes Bilaterally intact EOM present Cognition (Neuro): normal cognition Extrem Other: Moving all extremities well without any obvious deformities Course Course Course Narrative: RME: done by ASHLEY Anaya. 53 yold female with pmh of kidney stones presents to the ED for right flank pain and increase urinary frequency. Patient states alos RLQ pain. labs and UA ordered. Medications Administered Discontinued Medications Generic Name Dose Route Start Last Admin Trade Name Freq PRN Reason Stop Dose Admin Acetaminophen 650 mg 05/03/24 21:41 05/03/24 21:50 Acetaminophen 325 Mg Tablet PO 05/03/24 21:42 650 mg ONCE ONE Administration Ceftriaxone Sodium 1 gm 05/04/24 00:59 05/04/24 01:06 Ceftriaxone Sodium 1 Gm Vial IVPUSH 05/04/24 01:00 1 gm ONCE ONE Administration Sodium Chloride 1,000 mls @ 999 mls/hr 05/03/24 23:15 05/04/24 01:04 Ns IV 05/04/24 00:15 Infused .Q1H1M [facility]O Infusion Ketorolac Tromethamine 30 mg 05/03/24 23:10 05/03/24 23:59 Ketorolac Tromethamine 30 Mg/Ml Vial IVPUSH 05/03/24 23:11 30 mg ONCE ONE Administration Medical Decision Making Medical Decision Making MDM Narrative: 53-year-old female presents for evaluation of right flank pain/abdominal pain. She reports her symptoms started 4 days ago. Today she developed dizziness. The patient is found to be hypertensive to 194/103, this may be related to her pain that she is experiencing. She is afebrile, she has no leukocytosis but does have a left shift. Chemistries show no worrisome am in abnormalities. Renal function normal limits, AST is just above the upper limits of normal at 33 but otherwise LFTs within normal limits. Patient's urinalysis shows moderate blood, small leukocyte esterase with greater than 20 red cells, greater than 50 white cells 1+ bacteria. This may be related to pyelonephritis versus obstructive uropathy with a UTI. The patient is not septic. Plan for CT scan of the abdomen pelvis to evaluate for obstructive uropathy Differential Diagnosis Differential Diagnoses: The differential diagnosis associated with the presentation includes UTI Obstructive uropathy Cystitis Pyelonephritis Lab Data MDM Lab Attestation statement: I reviewed the patient's lab results. See above 05/03/24 20:32 05/03/24 20:32 Labs: Lab Results 05/03/24 Range/Units 20:32 WBC 10.2 (4.8-10.8) X10*3/uL RBC 4.29 (4.20-5.50) X10*6/uL Hgb 13.1 (12.0-16.0) g/dl Hct 40.7 (37.0-47.0) % MCV 94.9 (80.0-98.0) fL MCH 30.5 (27.0-33.0) pg MCHC 32.2 (31.0-35.0) g/dl RDW 12.1 (11.0-16.0) % Plt Count 215 (160-400) X10*3/uL MPV 12.5 H (9.4-12.3) fL Immature Gran % (Auto) 0.5 H (0.0-0.4) % Neut % (Auto) 77.3 H (45-73) % Lymph % (Auto) 14.5 L (20-40) % [place] % (Auto) 5.7 (2-11) % Eos % (Auto) 1.6 (0-4) % Baso % (Auto) 0.4 (0-2) % Lymph # (Auto) 1.5 (1.2-4.9) X10*3/uL [place] # (Auto) 0.6 (0.1-1.2) X10*3/uL Eos # (Auto) 0.2 (0.0-0.4) X10*3/uL Baso # (Auto) 0.0 (0.0-0.2) X10*3/uL Abs Immat Gran (auto) 0.05 H (0.00-0.03) X10*3/uL Absolute Neuts (auto) 7.9 (2.0-8.3) x10*3/uL Absolute Nucleated RBC 0.000 (0.0-0.012) X10*3/uL Nucleated RBC % (auto) 0.0 (0.0-0.2) /100WBC Sodium 141 (135-145) mmol/L Potassium 3.8 (3.3-5.1) mmol/L Chloride 105 (96-108) mmol/L Carbon Dioxide 26 (22-29) mmol/L Anion Gap 14 (12-20) BUN 11 (9-16) mg/dL Creatinine 0.75 (0.5-1.4) mg/dL Estim Creat Clear Calc 103.6 Estimated GFR > 60 Random Glucose 113 (60-115) mg/dL Calcium 10.0 D (8.4-10.2) mg/dL Total Bilirubin 0.5 (0.0-1.0) mg/dL AST 33 H (5-31) U/L ALT 30 (0-31) U/L Alkaline Phosphatase 99 (39-117) U/L Total Protein 7.9 (6.5-8.0) g/dL Albumin 3.9 (3.5-5.0) g/dL Beta HCG, Quant < 2 mIU/mL Urine Color Yellow Urine Appearance Cloudy Urine pH 6.0 (5.0-9.0) Ur Specific [place] 1.015 (1.005-1.025) Urine Protein 300 (3+) H (Neg-Trace) mg/dL Urine Glucose (UA) Negative (Negative) mg/dL Urine Ketones Negative (Negative) mg/dL Urine Blood Moderate (2+) H (Negative) Urine Nitrite Negative (Negative) Ur Leukocyte Esterase Small (1+) H (Negative) Urine RBC >20 H (0-2) /HPF Urine WBC >50 H (0-5) /HPF Ur Squamous Epith Cells 0-2 (0-2) /HPF Urine Bacteria 1+ (None Seen) Hyaline Casts 0-2 (0-2) /LPF Urine Test NEGATIVE (NEGATIVE) Discharge Plan Discharge Clinical Impression: Urinary tract infection, Acute unilateral obstructive uropathy Patient Disposition: Home, Self-Care Instructions: Kidney Stones (ED), Urinary Tract Infection in Women (ED) Additional Instructions: You have a 2 mm kidney stone in your right ureter. You also have signs of a urinary tract infection. You were given a dose of antibiotics through the IV. Take cefuroxime twice daily You may use ibuprofen/Tylenol for pain. Use tramadol as needed for severe breakthrough pain. This will make you sleepy, did not drink alcohol or drive after taking it Follow-up with Urology, Dr. Hernandez at the number provided Prescriptions: New cefuroxime axetil 500 mg tablet 500 mg PO Q12H Qty: 14 0RF tamsulosin 0.4 mg capsule 0.4 mg PO DAILY Qty: 7 0RF tramadol 50 mg tablet 50 mg PO Q6H PRN (Reason: pain (scale score 4-6)) Qty: 12 0RF No Action pantoprazole 40 mg tablet,delayed release (DR/EC) 40 mg PO DAILY Qty: 30 2RF Rx Instructions: take one tablet half an hour before breakfast famotidine [Pepcid] 20 mg tablet 20 mg PO BEDTIME Qty: 30 3RF amlodipine 10 mg Tablet 10 mg PO DAILY hydroxychloroquine [Plaquenil] 200 mg Tablet 200 mg PO BID lisinopril 40 mg Tablet 40 mg PO DAILY quetiapine 200 mg tablet 300 mg PO BEDTIME duloxetine 30 mg capsule,delayed release(DR/EC) 60 mg PO QAM celecoxib 200 mg capsule 200 mg PO DAILY hydrochlorothiazide 25 mg tablet 25 mg PO DAILY estradiol 0.1 mg/24 hr patch semiweekly 1 patch transdermal 2XW Referrals: Kev Hernandez MD [Physician] - (obstructive uropathy ) Interventions: ED Discharge Assessment Last Done: 05/04/24 01:51 Discharge Date/Time: 05/04/24 01:51 Print Language: Irish
[2024-05-03 20:38] LABS: MANUAL DIFF FLAG NO
[2024-05-03 20:44] LABS: Basophils Percent Auto 0.4 % (0-2); Eosinophils Absolute Auto 0.2 X10*3/uL (0.0-0.4); Eosinophils Percent Auto 1.6 % (0-4); Hematocrit 40.7 % (37.0-47.0); Hemoglobin 13.1 g/dl (12.0-16.0); Imm Gran Abs Auto 0.05 X10*3/uL (0.00-0.03); Imm Gran Pct Auto 0.5 % (0.0-0.4); Lymphocytes Absolute Auto 1.5 X10*3/uL (1.2-4.9); Lymphocytes Percent Auto 14.5 % (20-40); Mean Corpuscular HGB Conc 32.2 g/dl (31.0-35.0); Mean Corpuscular Hemoglobin 30.5 pg (27.0-33.0); Mean Corpuscular Volume 94.9 fL (80.0-98.0); Mean Platelet Volume 12.5 fL (9.4-12.3); Monocytes Absolute Auto 0.6 X10*3/uL (0.1-1.2); Monocytes Percent Auto 5.7 % (2-11); Neutrophils Absolute Auto 7.9 x10*3/uL (2.0-8.3); Neutrophils Percent Auto 77.3 % (45-73); Platelet Count 215 X10*3/uL (160-400); Red Blood Count 4.29 X10*6/uL (4.20-5.50); Red Cell Distribution Width 12.1 % (11.0-16.0); White Blood Count 10.2 X10*3/uL (4.8-10.8)
[2024-05-03 20:45] LABS: Appearance Urine Cloudy; Color Urine Yellow; Glucose Urine UA Negative (Negative); Leukocyte Esterase Urine Small (1+) (Negative); Nitrite Urine Negative (Negative); Specific Gravity - Urine 1.015 (1.005-1.025); UMIC TRIGGER UACC YES; Urine Blood Moderate (2+) (Negative); Urine Ketones Negative (Negative); Urine Protein 300 (3+) mg/dL (Neg-Trace)
[2024-05-03 20:47] LABS: UPreg QC Valid YES; Urine Pregnancy NEGATIVE (NEGATIVE)
[2024-05-03 21:04] LABS: Alanine Aminotransferase 30 U/L (0-31); Albumin Level 3.9 g/dL (3.5-5.0); Alkaline Phosphatase 99 U/L (39-117); Anion Gap 14 (12-20); Aspartate Amino Transferase 33 U/L (5-31); Bilirubin Total 0.5 mg/dL (0.0-1.0); Blood Urea Nitrogen 11 mg/dL (9-16); Carbon Dioxide 26 mmol/L (22-29); Chloride 105 mmol/L (96-108); Creatinine Clr Calc Pharmacy 103.6; Estimated Glomerular Filt Rate > 60; Glucose Random 113 mg/dL (60-115); HCG Quantitative < 2 mIU/mL; Potassium 3.8 mmol/L (3.3-5.1); Sodium 141 mmol/L (135-145); Total Protein 7.9 g/dL (6.5-8.0)
[2024-05-03 21:48] LABS: Bacteria Urine 1+ (None Seen); Hyaline Casts Urine 0-2 /LPF (0-2); RBC Urine >20 /HPF (0-2); Squamous Epithelial Cell Urine 0-2 /HPF (0-2); UACC Culture Trigger YES; WBC Urine >50 /HPF (0-5)
[2024-05-03] MEDS: Acetaminophen 325 MG TABLET 650 MG PO (21:50)
--- NOTE | 2024-05-03 22:02 | PC.NURSE ---
pt reports 9/10 R. flank pain, resting comfortably in stretcher. skin wpd, no n/v. awaiting eval by ed provider, educated can get tylenol at this time while waiting, pt in agreement.
[2024-05-03] MEDS: Ketorolac Tromethamine 30 MG/ML VIAL IVPUSH (23:59)
[2024-05-03] MEDS: 0.9 % Sodium Chloride 1,000 ML 999 ML IV (23:59)
[2024-05-04] MEDS: cefTRIAXone sodium 1 GM VIAL IVPUSH (01:06)
[2024-05-04 01:09] VITALS: BP 138/87; PULSE 94; RESP 16; TEMP 36.9; O2SAT 98
[2024-05-04 01:51] VITALS: BP 138/87; PULSE 94; RESP 16; TEMP 36.9; O2SAT 98
== END 2024-05-04 01:51 | disposition home or self-care (01) ==
PROVIDERS: Physician Assistant; Emergency Provider Emergency Medicine Emergency Medical Services; PCP Nurse Practitioner Primary Care
DX: N39.0 Urinary tract infection, site not specified (principal); N13.9 Obstructive and reflux uropathy, unspecified; R10.2 Pelvic and perineal pain; R42 Dizziness and giddiness; R10.31 Right lower quadrant pain; R35.0 Frequency of micturition; Z79.899 Other long term (current) drug therapy
CPT/HCPCS: 36415; 74176; 80053; 81001; 81003; 81025; 84702; 85025; 87086; 87088; 87147; 87186; 96361; 96374; 96375; 99284; J0696; J1885

== ENCOUNTER 2024-07-20 09:00 | Outpatient (AMB) | payer MEDICAID, SELFPAY ==
[2024-07-20 09:15] VITALS: BP 90/58; PULSE 76; BMI 41.9
--- NOTE | 2024-07-20 09:15 | A.OFFVIS_ITS ---
Vital Signs 07/20/24 09:15 Height 5 ft 4 in Weight 244 lb 4.355 oz BMI 41.9 BP 90/58 L Blood Pressure Location Lt brachial Position Sitting Pulse 76 Pulse Source Pulse Oximeter Intake Visit Reasons: pcp req appt dr antione cuenca echo/tachycardia Tube Fitter Required: No Chorus Master: Chorus Master Present Allergies hydroxychloroquine Allergy (Verified 07/20/24 09:18) Unknown Medication List - Last Reconciled 07/20/24 by Anu Campbell, [employer] amlodipine 10 mg PO DAILY cefuroxime axetil 500 mg PO Q12H celecoxib 200 mg PO DAILY duloxetine 60 mg PO QAM estradiol 1 patch transdermal 2XW famotidine (Pepcid) 20 mg PO BEDTIME gabapentin 300 mg PO BID hydrochlorothiazide 25 mg PO DAILY hydroxychloroquine (Plaquenil) 200 mg PO BID lisinopril 40 mg PO DAILY pantoprazole 40 mg PO DAILY quetiapine 300 mg PO BEDTIME HPI HPI pcp req appt dr antione cuenca echo/tachycardia: Details: Sonia is a 53-year-old female with past medical history of morbid obesity, hypertension, LVH, NSVT on Holter monitor last November who presents for follow-up. A stress test and cardiac MRI were requested however these were not completed for unclear reason. Today she reports that she is noticing heart palpitations several times daily. She can feel her heart beat fast for few seconds causing her to feel short of breath and fatigued. She has no lightheadedness, presyncope, syncope, falls. She has no chest discomfort currently at rest or with activity. She has some shortness of breath with physical activity which is not new. No PND, orthopnea or edema. She has bilateral knee pain from arthritis. Her activity is overall limited. She is compliant with her meds. Her daughter is present and assisting with translation. [facility] Medical History (Updated 07/20/24 @ 11:17 by Anu Campbell, [employer]) Lupus Arthritis Anemia History of anxiety Depression Personal history of tuberculosis HTN (hypertension) Surgical History Hx of total hysterectomy with removal of both tubes and ovaries Hx of dilation and curettage History of esophagogastroduodenoscopy (EGD) H/O colonoscopy Hx of knee surgery Hx of lithotripsy Hx of appendectomy Social History Alcohol intake: never Years Smoked: 36 Substance Use Type: Marijuana Review of Systems Const All systems reviewed & are unremarkable except as noted in HPI and below ENT Denies dizziness Card Denies chest pain, Denies chest pain at rest, Denies chest pain with activity, Reports rapid heart rate (palpitations), Denies pedal edema, Denies edema, Denies leg edema, Denies lightheadedness, Denies palpitations, Reports dyspnea, Denies dyspnea on exertion and Denies orthopnea Resp Denies cough, Reports dyspnea and Denies dyspnea on exertion GI Denies hematochezia and Denies change in stool character Musc Denies abnormal gait, Reports limited range of motion (bilateral knee pains), Denies muscle cramps, Denies muscle weakness, Denies numbness, Denies radiating pain into limb, Denies stiffness and Denies tingling Neuro Denies abnormal gait, Denies dizziness, Denies numbness and Denies tingling Endo Denies palpitations Physical Exam Vital Signs: Last Vital Signs Pulse 76 07/20/24 09:15 BP 90/58 L 07/20/24 09:15 BMI result Body Mass Index 41.9 Const General: cooperative, healthy appearing, comfortable and no acute distress Orientation/consciousness: patient oriented x3 Neck Neck: Yes normal visual inspection Resp Effort & Inspection: normal respiratory effort Auscultation: clear to auscultation bilaterally, no rales, no rhonchi and no wheezes Cardio Jugular venous distension: no JVD Rate: regular rate Rhythm: regular rhythm Heart sounds: S1 normal heart sound present, S2 normal heart sound present, no murmurs and no rubs Neuro General: patient oriented x3 Extrem General: Yes normal to inspection Psych Appearance: grossly normal Mental Status: mental status grossly normal Speech and movement: Normal speech and movement present Office Procedures EKG Details: Today, read by me, normal sinus rhythm, no acute ST or T-wave abnormalities, rate 84, QTC 432 milliseconds [id number], Complete Assessment & Plan Assessment & Plan (1) Shortness of breath: Code(s): R06.02 - Shortness of breath Category: Medical Plan: Reports of shortness of breath with physical activity. Not a new symptom for her. She did have an echocardiogram 12/01/2023 for evaluation which showed EF 55-60%, moderate LVH, left atrium severely dilated. She had a Holter monitor for her heart palpitations on 12/01/2023 for 2 days showing heart rate range 81 to 130, 36% of the time heart rate greater than 100. Twenty beat run of monomorphic VT. Following that result a nuclear stress test and cardiac MRI were requested however not completed for unclear reason. At this point she st ill reports shortness of breath but she is primarily concerned with heart palpitations. She feels them 5 to 6 times a day lasting seconds followed by shortness of breath and fatigue. She is not having any presyncope or syncope. EKG done today showing normal sinus rhythm, rate 84. Will recheck a Holter monitor to evaluate for further NSVT. Will order a pharmacological nuclear stress test to evaluate for ischemia. She is not able to walk on a treadmill due to knee pain. Will order a cardiac MRI due to her NSVT and LVH to evaluate for myocardial abnormalities. Will start on metoprolol XL 25 mg daily. Will reduce her lisinopril down to 20 mg daily as her blood pressure is on the low side. Initially 90/58 however recheck done by me 102/60. All the above reviewed with her and she states understanding. Cardiology follow-up when test results are available, proximally 2 months, sooner if needed. (2) NSVT (nonsustained ventricular tachycardia): Code(s): I47.29 - Other ventricular tachycardia Category: Medical Plan: As above (3) LVH (left ventricular hypertrophy): Code(s): I51.7 - Cardiomegaly Category: Medical Plan: As above (4) Palpitations: Code(s): R00.2 - Palpitations Category: Medical Plan: As above (5) HTN (hypertension): Code(s): I10 - Essential (primary) hypertension Category: Medical Plan: As above Plan Time spent on chart review, documentation, intravenous has not Orders: Orders NM cardiolite stress test Today I47.29 - Other ventricular tachycardia, I51.7 - Cardiomegaly CA lexiscan stress w can Today I47.29 - Other ventricular tachycardia, I51.7 - Cardiomegaly, R06.02 - Shortness of breath MR cardiac morph fnct w con Today I47.29 - Other ventricular tachycardia, I51.7 - Cardiomegaly, R00.2 - Palpitations TSH reflex Free T4 Today R00.2 - Palpitations ECG 3 day holter monitor Today I47.29 - Other ventricular tachycardia, R00.2 - Palpitations Basic Metabolic Panel Today I47.29 - Other ventricular tachycardia Magnesium Today R00.2 - Palpitations Medications: New lisinopril dose reduced 20 mg PO DAILY 90 tabs 1RF metoprolol succinate ER new 25 mg PO DAILY 30 tabs 5RF Coding Level of Care Code Est Pt Level 4 (08641) Complex EM visit Add On G2211 Diagnoses Shortness of breath R06.02 NSVT (nonsustained ventricular tachycardia) I47.29 LVH (left ventricular hypertrophy) I51.7 Palpitations R00.2 HTN (hypertension) I10 CPT Codes EKG - CPT: [id number], Complete ([id number]) Time Spent (min) 36
--- OUTSIDE RECORDS SUMMARY | 2024-07-20 11:57 | XMS_ITS | Encounter Summary ---
Author Organization [employer] Address [address] 7t [place] [address] Care Team Providers Care Office Manager Name Role Phone Analy Amanda ALANIS Primary Care Provider [phone] Reason for Visit * Reason Comments Med Refill Encounter Details Date Type Department Care Team ([facility] st Contact Info) Description 07/02/2024 Refill [facility] MEDICINE [address] [place], [place] [phone] Zia Bower MD 230 [place], [place] [phone] Chronic pain syndrome; Mood disorder (CMS/HCC); Polyarthralgia Social History Tobacco Use Types Packs/Day Years Used Date Smoking Tobacco: Some Days Cigarettes Smokeless Tobacco: Never Depression Answer Date Recorded Patient Health Questionnaire-9 Score 21 12/20/2023 Patient Health Questionnaire-9 Score 21 12/20/2023 Last PHQ-9: Questionnaire Data Not on file 0 12/20/2023 Housing Stability Answer Date Recorded What is your housing situation today? I have sandra lópez 03/14/[address] you li ve. Do you have problems with any of the following? None of the above 03/14/2024 Food Insecurity Answer Date Recorded Within the past 12 months, y ou worried that your food would run out before you got money to buy more: Never True 03/14/2024 Within the past 12 months,th e food you bought just didn't last and you didn't have enough money to get more: Never True Transportation Answer Date Recorded In the past 12 months, has l ack of transportation kept you from medical appts, meetings, work or from getting things needed for daily living? No 03/14/2024 Utilities Answer Date Recorded In the past 12 months, has t he electric, gas, oil or water company threatened to shut off services in your home? No 03/14/2024 Depression Answer Date Recorded Patient Health Questionnaire-2 Score 6 12/20/2023 Internet Access Answer Date Recorded Internet Access Q1 Yes 03/14/2024 Internet Access Q2 Not on file 03/14/2024 Comments Unknown Sex and Gender Information Value Date Recorded Sex Assigned at Female 04/20/2022 10:14 AM EDT Legal Sex Female 10:14 AM EDT Gender Identity Female 04/20/2022 10:14 AM EDT Sexual Orientation Straight 04/20/2022 10 :14 AM EDT documented as of this encounter Plan of Treatment Upcoming Encounters Date Type Department Care Team (Late st Contact Info) Description 07/24/2024 2:00 PM EST Clinical Support [address] [address] 07/28/2024 1:00 PM EST Clinical Support [address] [address] 09/08/2024 1:00 PM EDT Office Visit [address] [address] Amanda Beckford ANP [address] [place] [address] documented as of this encounter Visit Diagnoses Diagnosis Chronic pain syndrome Mood disorder (CMS/HCC) Unspecified episodic mood disorder Polyarthralgia Pain in joint, multiple sites documented in this encounter Additional Health Concerns Assessment Noted Time PHQ-9 Depression Total Score: 21 024 2:26 PM EDT documented as of this encounter Care Teams Office Manager Relationship Specialty Start Date End Date Amanda Beckford ANP [address] [place] [address] PCP - General Family Medicine 07/12/20 documented as of this encounter
--- OUTSIDE RECORDS SUMMARY | 2024-07-20 11:57 | XMS_ITS | Encounter Summary ---
Author Organization [employer] Address [address] 7t [place] [address] Care Team Providers Care Machine Cloth Measurer Name Role Phone Analy Amanda ALANIS Primary Care Provider [phone] Reason for Visit * Reason Onset Date Comments Nurse Triage 07/13/2024 Encounter Details Date Type Department Care Team (Late st Contact Info) Description 07/13/2024 Telephone [facility] MEDICINE [address] [facility] [address] [place], [place] [phone] Maryann Estrada, RN Nurse Triage Social History Tobacco Use Types Packs/Day Years [...] AM EDT documented as of this encounter Miscellaneous Notes * Telephone Encounter - Maryann Estrada RN - 07/13/2024 2:29 PM EST Assessment: Patient presents to green team for appt c/o heart beating super fast . Symptoms have been present for days. Since last . Symptoms are constant. Patient is taking (treatment/meds) yes. Reports taking amlodipine, lisinopril, and hydrochlorothiazide today. Pt reported to green team for regular office visit and nurses approached by front end specialist staff because pt complaining of heart issue, maybe chest issue , said pt was crying. Nurses went to triage pt (translation by Kristina [facility] and Octavia [facility] translator and interpreter) who stated that since last , brother has been in hospital and she has felt like her heart is beating fast constantly since then, expressed concern for tachycardia and high blood pressure. Pt denies chest pain, states I feel good otherwise it's just my heard beating fast. States constant, not intermittent. Denies chest pain, nausea, vomiting, dizziness, nausea. Color normal, pt calm by end of triage, no longer crying. C onfirms taking meds. VS as follows (if applicable): at 1:55pm Temp 98.8 orally HR 101 Resp 20 none BP 183/113 left Arm; Device: Automatic Cuff Size: large cuff. Auto machine cycled several times. Rechecked manually at 2:03P: 154/98 O2 sat 98 % on room air Denies pain In Office Testing EKG yes Plan of care: Gave report to PCP Amanda Beckford NP who went to see pt, afterward ordered EKG. EKG performed, handed to PCP. Pt requested copy, gave copy to pt. PCP returned to room for ambrose/evaluation. Provider evaluation: Yes Tx Provider to determine Maryann Estrada RN documented in this encounter Plan of Treatment Upcoming Encounters Date Type Department Care Team (Late st Contact Info) Description 07/24/2024 2:00 PM EST Clinical Support [address] [address] 07/28/2024 1:00 PM EST Clinical Support [address] [address] 09/08/2024 1:00 PM EDT Office Visit [address] [address] Amanda Beckford ANP [address] [place] [address] documented as of this encounter Visit Diagnoses Not on filedocumented in this encounter Additional Health Concerns Assessment Noted Time PHQ-9 Depression Total Score: 21 024 2:26 PM EDT documented as of this encounter Care Teams Machine Cloth Measurer Relationship Specialty Start Date End Date Amanda Beckford ANP [address] [place] [address] PCP - General Family Medicine 07/12/20 documented as of this encounter
--- OUTSIDE RECORDS SUMMARY | 2024-07-20 11:57 | XMS_ITS | Encounter Summary ---
Author Organization [employer] Address [address] 7t [place] [address] Care Team Providers Care Processor Solid Propellant Name Role Phone Analy Amanda ALANIS Primary Care Provider [phone] Encounter Details Date Type Department Care Team (Late st Contact Info) Description 07/17/2024 Telephone [facility] MEDICINE [address] [facility] [address] [place], [place] [phone] Nuris Crocker LPN Social History Tobacco Use Types Packs/Day Years [...] encounter Miscellaneous Notes * Telephone Encounter - Nuris Crocker LPN - 07/17/2024 4:18 PM EST Waiting on updated weight and amended notes to complete PA for zepbound. Amanda Beckford notified 07/17/2024 documented in this encounter Plan of Treatment Upcoming Encounters Date Type Department Care Team (Late st Contact Info) Description 07/24/2024 2:00 PM EST Clinical Support [address] [address] 07/28/2024 1:00 PM EST Clinical Support [address] [address] 09/08/2024 1:00 PM EDT Office Visit [address] [address] Amanda Beckford ANP [address] [place] [place] [address] documented as of this encounter Visit Diagnoses Not on filedocumented in this encounter Additional Health Concerns Assessment Noted Time PHQ-9 Depression Total Score: 21 024 2:26 PM EDT documented as of this encounter Care Teams Processor Solid Propellant Relationship Specialty Start Date End Date Amanda Beckford ANP [address] [place] [address] PCP - General Family Medicine 07/12/20 documented as of this encounter
--- OUTSIDE RECORDS SUMMARY | 2024-07-20 11:57 | XMS_ITS | Encounter Summary ---
Author Organization [employer] Address [address] [facility] 7t [place] [address] Care Team Providers Care Bonderite Operator Name Role Phone Amanda Beckford Primary Care Provider Encounter Details Date Type Department Care Team (Late st Contact Info) Description 11/03/[address] [address] Amanda Beckford ANP 230 [place] [address] Social History Tobacco Use Types Packs/Day Years Used Date Smoking Tobacco: Every Day Cigarettes Smokeless Tobacco: Never Comments Unknown Sex and Gender Information Value [...] Description 07/24/2024 2:00 PM EST Clinical Support [address] [address] 07/28/2024 1:00 PM EST Clinical Support [address] [phone] 09/08/2024 1:00 PM EDT Office Visit [address] [address] Amanda Beckford, ANP 230 [place] [address] documented as of this encounter Procedures Procedure Name Priority Date/Time Associated Diagnosis Comments COLONOSCOPY Routine 11/16/2018 PAP/HPV Routine 09/14/2018 12:00 AM EDT documented in this encounter Results * Colonoscopy (11/16/2018) Colonoscopy Normal Normal 11/16/2018 Narrative Love Morton - 11/16/2018 10:54 AM EDT Recommended 5 year follow up ( [facility] ) us Historical Provider HEALTH MAINTENANCE Final Result * Pap Smear (09/14/2018 12:00 AM EDT) us Historical Provider HEALTH MAINTENANCE Final Result documented in this encounter Visit Diagnoses Not on filedocumented in this encounter Care Teams Bonderite Operator Relationship Specialty Start Date End Date Amanda Beckford ANP [address] [place] [phone] PCP - General Family Medicine 07/12/20 documented as of this encounter
--- OUTSIDE RECORDS SUMMARY | 2024-07-20 11:57 | XMS_ITS | Encounter Summary ---
Author Organization [employer] Address [address] 7t [place] [address] Care Team Providers Care Bindery Production Manager Name Role Phone Analy Amanda ALANIS Primary Care Provider [phone] Reason for Visit * Reason Onset Date Comments Appointment Request 07/18/2024 Encounter Details Date Type Department Care Team (Late st Contact Info) Description 07/18/2024 Telephone [facility] MEDICINE [address] [facility] [place], [place] [phone] Maryann Estrada, ROLANDO Appointment Request Social History Tobacco Use Types Packs/Day Years [...] Telephone Encounter - Maryann Estrada RN - 07/18/2024 2:45 PM EST Called pt, spoke with pt and DETECTIVE SERGEANT. Pt gave verbal consent to speak with DETECTIVE SERGEANT. Advised pt that no recent weight on file and it is needed for prior authorization for Zepbound medication. Scheduled pt forweight check on 07/24/24. * Telephone Encounter - Maryann Estrada RN - 07/18/2024 2:29 PM EST ----- Message from Amanda Beckford sent at 07/17/2024 4:54 PM EST ----- Hi team - can you please outreach pt to get her most recent weight? If she does not have a scale athome, please ask her to stop in so we can update weight in chart - need it for medication PA. thanks documented in this encounter Plan of Treatment Upcoming Encounters Date Type Department Care Team (Late st Contact Info) Description 07/24/2024 2:00 PM EST Clinical Support [address] [address] 07/28/2024 1:00 PM EST Clinical Support [address] [address] 09/08/2024 1:00 PM EDT Office Visit [address] [address] Amanda Beckford ANP 230 [place] [address] documented as of this encounter Visit Diagnoses Not on filedocumented in this encounter Additional Health Concerns Assessment Noted Time PHQ-9 Depression Total Score: 21 024 2:26 PM EDT documented as of this encounter Care Teams Bindery Production Manager Relationship Specialty Start Date End Date Amanda Beckford ANP 230 [place] [address] PCP - General Family Medicine 07/12/20 documented as of this encounter
--- OUTSIDE RECORDS SUMMARY | 2024-07-20 11:57 | XMS_ITS | Encounter Summary ---
Author Organization [employer] Address [address] 7[address] [place] [address] Care Team Providers Care Merchandise Processor Name Role Phone Analy Amanda ALANIS Primary Care Provider [phone] Encounter Details Date Type Department Care Team (Latest Contact Info) Description 07/13/2024 Travel Social History Tobacco Use Types Packs/Day Years [...] Description 07/24/2024 2:00 PM EST Clinical Support [address] [address] 07/28/2024 1:00 PM EST Clinical Support [address] [address] 09/08/2024 1:00 PM EDT Office Visit [address] [address] Amanda Beckford ANP [address] [place] [address] documented as of this encounter Visit Diagnoses Not on filedocumented in this encounter Additional Health Concerns Assessment Noted Time PHQ-9 Depression Total Score: 21 024 2:26 PM EDT documented as of this encounter Care Teams Merchandise Processor Relationship Specialty Start Date End Date Amanda Beckford ANP [address] [place] [address] PCP - General Family Medicine 07/12/20 documented as of this encounter
--- OUTSIDE RECORDS SUMMARY | 2024-07-20 11:57 | XMS_ITS | Encounter Summary ---
Author Organization [employer] Address [address] 7t [place] [address] Care Team Providers Care Auditor In Charge Name Role Phone Analy Amanda ALANIS Primary Care Provider [phone] Reason for Visit * Reason Comments Med Refill Encounter Details Date Type Department Care Team (Late st Contact Info) Description 07/19/2023 Refill [facility] [address] [facility] [place], [place] [phone] Lis Cortez FNP Chronic pain syndrome Social History Tobacco Use Types Packs/Day Years Used Date Smoking Tobacco: Former Cigarettes Smokeless Tobacco: Never Depression Answer Date Recorded Patient Health Questionnaire-9 Score 12 01/21/2023 Housing Stability Answer Date Recorded What is your housing situation today? I have sandra lópez 04/05/[address] you li ve. Do you have problems with any of the following? None of the above 04/05/2023 Food Insecurity Answer Date Recorded Within the past 12 months, y ou worried that your food would run out before you got money to buy more: Never True 04/05/2023 Within the past 12 months,th e food you bought just didn't last and you didn't have enough money to get more: Never True Transportation Answer Date Recorded In the past 12 months, has l ack of transportation kept you from medical appts, meetings, work or from getting things needed for daily living? No 04/05/2023 Utilities Answer Date Recorded In the past 12 months, has t he electric, gas, oil or water company threatened to shut off services in your home? No 04/05/2023 Depression Answer Date Recorded Patient Health Questionnaire-2 Score 4 01/21/2023 Comments Unknown Sex and Gender Information Value [...] Description 07/24/2024 2:00 PM EST Clinical Support [address] [address] 07/28/2024 1:00 PM EST Clinical Support [address] [address] 09/08/2024 1:00 PM EDT Office Visit [address] [address] Amanda Beckford ANP [address] [place] [address] documented as of this encounter Visit Diagnoses Diagnosis Chronic pain syndrome documented in this encounter Additional Health Concerns Assessment Noted Time PHQ-9 Depression Total Score: 12 023 2:07 PM EDT documented as of this encounter Care Teams Auditor In Charge Relationship Specialty Start Date End Date Amanda Beckford ANP [address] [place] [address] PCP - General Family Medicine 07/12/20 documented as of this encounter
--- OUTSIDE RECORDS SUMMARY | 2024-07-20 11:57 | XMS_ITS | Encounter Summary ---
Author Organization [employer] Address [address] [facility] [address] [address] 7t [place] [address] Care Team Providers Care Cook Specialty Name Role Phone Amanda Beckford Primary Care Provider [phone] Reason for Visit * Reason Onset Date Comments Appointment Request 10/13/2023 Encounter Details Date Type Department Care Team ([facility] st Contact Info) Description 10/13/2023 Telephone [facility] MEDICINE 230 [place], [place] [phone] Amanda Beckford ANP 230 [place] [address] Appointment Request Social History Tobacco Use Types [...] encounter Miscellaneous Notes * Telephone Encounter - Leighton Dai - 10/13/2023 3:33 PM EDT Tc from patient requesting a appt with provider to discuss about personal information and about body aches patient refused triage wants to be seen by the provider only documented in this encounter Plan of Treatment Upcoming Encounters Date Type Department Care Team (Late st Contact Info) Description 07/24/2024 2:00 PM EST Clinical Support [address] [address] 07/28/2024 1:00 PM EST Clinical Support [address] [address] 09/08/2024 1:00 PM EDT Office Visit [address] [address] Amanda Beckford ANP [address] [place] [address] documented as of this encounter Visit Diagnoses Not on filedocumented in this encounter Additional Health Concerns Assessment Noted Time PHQ-9 Depression Total Score: 12 023 2:07 PM EDT documented as of this encounter Care Teams Cook Specialty Relationship Specialty Start Date End Date Amanda Beckford ANP [address] [place] [address] PCP - General Family Medicine 07/12/20 documented as of this encounter
--- OUTSIDE RECORDS SUMMARY | 2024-07-20 11:57 | XMS_ITS | Encounter Summary ---
Author Organization [employer] Address [address] [facility] 7t [place] [address] Care Team Providers Care Delinquent Account Clerk Name Role Phone Amanda Beckford Primary Care Provider [phone] Reason for Visit * Reason Onset Date Comments No Show 06/23/2024 Encounter Details Date Type Department Care Team ([facility] st Contact Info) Description 06/23/2024 Telephone [facility] MEDICINE 230 [place], [place] [phone] Amanda Beckford ANP 230 [place] [address] No Show Social History Tobacco Use Types Packs/Day Years [...] 07/24/2024 2:00 PM EST Clinical Support [address] [address] 07/28/2024 1:00 PM EST Clinical Support [address] [address] 09/08/2024 1:00 PM EDT Office Visit [address] [address] Amanda Beckford ANP [address] [place] [address] documented as of this encounter Visit Diagnoses Not on filedocumented in this encounter Additional Health Concerns Assessment Noted Time PHQ-9 Depression Total Score: 21 024 2:26 PM EDT documented as of this encounter Care Teams Delinquent Account Clerk Relationship Specialty Start Date End Date Amnada Beckford ANP [address] [place] [phone] PCP - General Family Medicine 07/12/20 documented as of this encounter
--- OUTSIDE RECORDS SUMMARY | 2024-07-20 11:57 | XMS_ITS | Encounter Summary ---
Author Organization [employer] Address [address] 7[address] [place] [address] Care Team Providers Care Barrel Racer Name Role Phone Analy Amanda ALANIS Primary Care Provider [phone] Reason for Visit * Reason Comments Med Refill Encounter Details Date Type Department Care Team (Late st Contact Info) Description 07/19/2023 Refill [facility] 230 [place], [place] [phone] Anna Marie Sapp MD 230 [place], [place] [phone] Undifferentiated connective tissue disease (CMS/HCC) Social History Tobacco Use Types Packs/Day Years [...] Description 07/24/2024 2:00 PM EST Clinical Support [address] [address] 07/28/2024 1:00 PM EST Clinical Support [address] [address] 09/08/2024 1:00 PM EDT Office Visit [address] [address] Amanda Beckford ANP [address] [place] [address] documented as of this encounter Visit Diagnoses Diagnosis Undifferentiated connective tissue disease (CMS/HCC) Unspecified diffuse connective tissue disease documented in this encounter Additional Health Concerns Assessment Noted Time PHQ-9 Depression Total Score: 12 023 2:07 PM EDT documented as of this encounter Care Teams Barrel Racer Relationship Specialty Start Date End Date Amanda Beckford ANP [address] [place] [address] PCP - General Family Medicine 07/12/20 documented as of this encounter
--- OUTSIDE RECORDS SUMMARY | 2024-07-20 11:57 | XMS_ITS | Encounter Summary ---
Author Organization [employer] Address [address] [place] [address] Care Team Providers Care Hospice Plan Administrator Name Role Phone Amanda Beckford Primary Care Provider [phone] Encounter Details Date Type Department Care Team (Late st Contact Info) Description 07/13/2024 2:00 PM EST Office Visit [facility] [address] [place], [place] [phone] Amanda Beckford ANP [address] [place], [place] [phone] Mixed anxiety and depressive disorder (Primary Dx); Class 3 severe obesity with serious comorbidity and body mass index (BMI) of 40.0 to 44.9 in adult, unspecified obesity type (CMS/HCC); Primary hypertension Social History Tobacco Use Types Packs/Day Years [...] AM EDT documented as of this encounter Last Filed Vital Signs Vital Sign Reading Time Taken Comments Blood Pressure 154/98 07/13/2024 2:04 PM EST man ual Pulse 95 07/13/2024 2:04 PM EST Temperature 37.1 ??C (98.8 ??F) 07/13/2024 1:55 PM ES T Respiratory Rate 20 07/13/2024 1:55 PM EST Oxygen Saturation 98% 07/13/2024 1:55 PM EST Inhaled Oxygen Concentration - - Weight - - Height - - Body Mass Index - - documented in this encounter Progress Notes * ZEKE Luna - 07/13/2024 2:00 PM EST Images from the original note were not included. Subjective Patient ID: Sonia Camilo is a 53 y.o. female who presents for follow-up weight and hypertension. Specialists include: [facility] [place] cardiology - she is overdue for follow-up visit HPI Here today for follow-up hypertension. 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 Upon discussion with patient, patient reported to nurses that she does not really feel like it is chest pain but feels like it is her anxiety and that her heart is racing. Her brother is in the hospital andconstantin reports her heart has been racing basically since he went in. Unfortunately her brother has had2 heart attacks and Sonia reports that his heart is not pumping correctly. Her [employer]AD[employer] is her brothers daughter and so this is clearly been hard for her as well. Does see cards for tachycardia. See EKG below. Sonia agrees to see cards again, She reports BP at home varies depending on her mood, often it is high due to anxiety. She took lisinopril and amlodipine but not hydrochlorothiazide yet today. I will talk to pharmacy about which BB would be most beneficial for Sonia and call cards to get herfollow-up appt. Tentatively will plan to start her on metoprolol succinate 25 mg daily pending pharmacy consult. She would like resume GLP1 and wegovy was denied by plan but we will try to get zepbound. She was on wegovy but last injection was 06/19/24 and plan did not approve PA to continue. Sonia has not lostweight on the GLP-1 but she does report improvement in secondary conditions including hypertension.She has not had a worsening of depression. [place] interpretation by Josie June, medical assembly. Got holter 11/2023 as below: Ordering Physician: Willy Cain MD Date of Service: 12/01/23 Procedure(s): ECG holter monitor 48 hour Accession Number(s): cc: Willy Cain MD~ Total monitoring time 2 days. Underlying rhythm is sinus with an average rate of 97/Min. Range 81 to 130/Min. About 36% of the time, rate > 100/Min. Rare ventricular ectopy. One episode of monomorphic VT for 20 beats. Rare supraventricular ectopy. No significant pauses or AV blocks. Patient markers used in association with sinus rhythm and sinus tachycardia. No diary events. Dictated By: Luis M Mejia MD Signed By: <Electronically signed by Luis M Mejia MD> 12/06/23 1220 Echo 11/2023 Conclusions: - The left ventricular systolic function is normal. The visually estimated ejection fraction is between 55-60%. - There is moderately increased left ventricular wall thickness. - The left atrium is severely dilated. - No obvious valvular pathology seen on this study. EKG from cards as below Review of Systems Objective BP (!) 154/98 (BP Location: Left arm, Patient Position: Sitting, BP Cuff Size: Large adult) Comment: manual Pulse 95 Temp 98.8 ??F (37.1 ??C) (Oral) Resp 20 SpO2 98% Physical Exam Constitutional: General: She is not in acute distress. Appearance: Normal appearance. She is obese. She is not ill-appearing. HENT: Head: Normocephalic and atraumatic. Eyes: General: No scleral icterus. Extraocular Movements: Extraocular movements intact. Pupils: Pupils are equal, round, and reactive to light. Cardiovascular: Rate and Rhythm: Regular rhythm. Heart sounds: No murmur heard. Comments: Heart rate 90 Pulmonary: Effort: Pulmonary effort is normal. No accessory muscle usage or respiratory distress. Neurological: Mental Status: She is alert and oriented to person, place, and time. Comments: Ambulates slowly with antalgic gait Psychiatric: Behavior: Behavior normal. Comments: Crying, anxious Assessment/Plan Diagnoses and all orders for this visit: Mixed anxiety and depressive disorder Anxiety is severe today. Patient crying throughout visit. She does seem to calm and feel better after speaking with nurses and at our visit. She declines behavioral health clinician visit today or phone call, says she does not feel in a state to process much. Class 3 severe obesity with serious comorbidity and body mass index (BMI) of 40.0 to 44.9 in adult,unspecified obesity type (CMS/[facility]) Wegovy was declined to continue by insurance. She was on wegovy 1.7mg weekly but last injection was06/19/25 and plan did not approve PA to continue. Sonia has not lost weight yet on the GLP-1 but she does report improvement in secondary conditions including hypertension. She has not had a worsening of depression. We will try to get Zepbound approved. She has high BMI and multiple comorbidities that would likelyimprove with weight loss. Recommend: Daily exercise at least 30min, moderate intensity, incorporating both cardiovascular exercise and weight training. Adequate protein intake, Recommended at least 20 g per meal of protein to assist with satiety. Decrease soda and sugary beverage consumption. Weight loss medications must be used as part of a comprehensive lifestyle plan that incorporates the recommendations above. Pt has tried to lose weight for at least 6 mos via improved nutrition/reduced caloric intake and increased physical activity and has not lost weight. She has not yet lost weight with GLP-1 but reports improvement in secondary conditions including hypertension. She has diastolic dysfunction grade 1 and would additionally benefit from cardioprotective effects. Wt Readings from Last 4 Encounters: 03/22/24 249 lb 3.2 oz (113 kg) 12/20/23 249 lb (113 kg) 04/09/23 233 lb (106 kg) 01/21/23 230 lb 9.6 oz (105 kg) BMI Readings from Last 4 Encounters: 03/22/24 42.78 kg/m?? 12/20/23 42.74 kg/m?? 04/09/23 39.99 kg/m?? 01/21/23 39.58 kg/m?? Primary hypertension and hypertensive urgency EKG here is stable compared to previous Heart rate slowed to mid 90s down from 130s when she first arrived Blood pressure did not improve on repeat and remained elevated 160/100 left arm adult large cuff - ECG 12 lead For blood pressure she takes lisinopril 40 mg Hydrochlorothiazide 25 mg Amlodipine 10 mg She will take hydrochlorothiazide when she gets home. We will tentatively plan to start metoprolol succinate and less I can get her into cards very soon for follow-up or pharmacy recommends otherwise. I will ask team to call cards for follow-up appt. documented in this encounter Plan of Treatment Upcoming Encounters Date Type Department Care Team (Late st Contact Info) Description 07/24/2024 2:00 PM EST Clinical Support [place] [id number] 07/28/2024 1:00 PM EST Clinical Support [facility] [place] [address] 09/08/2024 1:00 PM EDT Office Visit [place] [phone] Amanda Beckford ANP [address] [place] [address] documented as of this encounter Procedures Procedure Name Priority Date/Time Associated Diagnosis Comments ECG 12-LEAD Routine 07/13/2024 4:39 PM EST Primary hypertension documented in this encounter Results * ECG 12 lead (07/13/2024 4:39 PM EST) Narrative Amanda Beckford ANP - 07/13/2024 4:39 PM EST HR 95 (98 on 2nd tracing) Appears stable versus EKG above from cards Amanda ALANIS ECG ORDERABLES Final Result documented in this encounter Visit Diagnoses Diagnosis Mixed anxiety and depressive disorder- Primary Dysthymic disorder Class 3 severe obesity with serious comorbidity and body mass index (BMI) of 40.0 to 44.9 in adult, unspecified obesity type (CMS/HCC) Primary hypertension Unspecified essential hypertension documented in this encounter Additional Health Concerns Assessment Noted Time PHQ-9 Depression Total Score: 21 024 2:26 PM EDT documented as of this encounter Care Teams Hospice Plan Administrator Relationship Specialty Start Date End Date Amanda Beckford ANP [address] [place] [phone] PCP - General Family Medicine 07/12/20 documented as of this encounter
--- OUTSIDE RECORDS SUMMARY | 2024-07-20 11:57 | XMS_ITS | Clinical Summary ---
Author Organization [employer] Address [address] [place] [address] Care Team Providers Care Welder Assembler Name Role Phone Chris Gonzales ZEKE Primary Care Provider [phone] Allergies No known active allergies Medications * This document contains information received from the source organization and may not represent a complete record from that organization. ferrous sulfate 325 (65 Fe) MG tablet take 1 tablet by oral route 2 times every day 02/28/20 21 Active Blood Pressure kit Check blood pressure in AM, seated in chair w/feet on floor 09/24/19 21 Active Elastic Bandages & Supports (Knee Support) misc To wear daily 11/05/19 18 Active diazePAM (Valium) 2 MG tabletIndicatio ns:Anxiety take 1 tablet by oral route 15-30min before MRI, may repeat in 30min if needed 4 tablet 06/25/19 24 Active pantoprazole (ProtoNix) 40 MG EC tablet TAKE 1 TABLET BY MOUTH EVERY DAY 30 MINUTES BEFORE BREAKFAST 10/08/19 24 Active estradiol (Minivelle) 0.05 MG/24HRIndicati ons:Menopause Use one patch twice weekly 24 patch 03/22/20 24 Active celecoxib (CeleBREX) 200 MG capsuleIndicati ons:Undifferent iated connective tissue disease (CMS/HCC) TAKE 1 CAPSULE BY MOUTH EVERY DAY 30 capsule 2 04/06/20 24 Active lisinopril 40 MG tabletIndicatio ns:Primary hypertension Take 1 tablet (40 mg) by mouth Once per day. 90 tablet 1 04/28/20 24 Active amLODIPine (Norvasc) 10 MG tabletIndicatio ns:Primary hypertension Take 1 tablet (10 mg) by mouth Once per day. 90 tablet 1 04/28/20 24 Active hydroCHLOROthia zide (HYDRODiuril) 25 MG tabletIndicatio ns:Primary hypertension Take 1 tablet (25 mg) by mouth Once per day. 90 tablet 3 04/28/20 24 Active hydroxychloroqu ine (Plaquenil) 200 MG tabletIndicatio ns:Undifferenti ated connective tissue disease (CMS/HCC) TAKE 1 TABLET BY MOUTH TWICE DAILY 60 tablet 3 05/04/20 24 Active DULoxetine (Cymbalta) [address] capsuleIndicati ons:Chronic pain syndrome TAKE 2 CAPSULES BY MOUTH EVERY DAY IN THE MORNING, DO NOT BREAK, CRUSH, DISSOLVE OR CHEW 60 capsule 5 07/03/19 25 Active QUEtiapine (SEROquel) 200 MG tabletIndicatio ns:Mood disorder (CMS/HCC) TAKE 1 AND 1/2 TABLETS BY MOUTH EVERY DAY AT BEDTIME 45 tablet 5 07/03/19 25 Active gabapentin (Neurontin) 300 MG capsuleIndicati ons:Polyarthral larry TAKE 1 CAPSULE BY MOUTH TWICE A DAY 60 capsule 1 07/03/19 25 Active Tirzepatide-Inocente ght Management (Zepbound) 2.5 MG/0.5ML solution auto-injectorIn dications:Class 3 severe obesity with serious comorbidity and body mass index (BMI) of 40.0 to 44.9 in adult, unspecified obesity type (CMS/HCC) Inject 0.5 mL (2.5 mg) under the skin 1 (one) time per week. 2 mL 07/13/19 25 Active gabapentin (Neurontin) 300 MG capsuleIndicati ons:Polyarthral larry Take 1 capsule (300 mg) by mouth 2 times daily. 180 capsule 1 12/20/19 24 025 Discontinued(Re order (will not trigger notification to Pharmacy)) DULoxetine (Cymbalta) [address] capsuleIndicati ons:Chronic pain syndrome TAKE 2 CAPSULES BY MOUTH EVERY DAY IN THE MORNING, DO NOT BREAK, CRUSH, DISSOLVE OR CHEW 60 capsule 5 01/06/20 24 025 Discontinued QUEtiapine (SEROquel) 200 MG tabletIndicatio ns:Mood disorder (CMS/HCC) TAKE 1 AND 1/2 TABLETS BY MOUTH EVERY DAY AT BEDTIME 45 tablet 5 01/06/20 24 025 Discontinued Semaglutide-Inocente ght Management (Wegovy) 2.4 MG/0.75ML solution auto-injector Inject 0.75 mL (2.4 mg) under the skin every 7 (seven) days. 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 Cain, moderate LVH, severe LA dilation, EF 55-60% 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 Left ventricular hypertrophy 09/19/2012 Mixed anxiety and depressive disorder 09/19/2012 Pulmonary hypertension 09/19/2012 Encounters Date Type Department Care Team Description 07/18/2024 Telephone [facility] [address] [place] [address] Maryann Estrada, ROLANDO Appointment Request 07/17/2024 Telephone [facility] [address] [place] [address] Nuris Crocker LPN 07/14/2024 Telephone [facility] [address] [place] [address] Chris Gonzales ANP 07/13/2024 2:00 PM EST Office Visit [facility] [address] [place] [address] Chris Gonzales ANP Mixed anxiety and depressive disorder (Primary Dx); Class 3 severe obesity with serious comorbidity and body mass index (BMI) of 40.0 to 44.9 in adult, unspecified obesity type (CMS/HCC); Primary hypertension 07/13/2024 Telephone [facility] [address] [place] [phone] Maryann Estrada, ROLANDO Nurse Triage 07/13/2024 Travel 07/04/2024 Patient Outreach [address] [address] Chris Gonzales ANP Pre-visit Planning (SDOH Screening negative and Tobacco screening negative) 07/02/2024 Refill [facility] [address] [place] [phone] Chris Gonzales ANP Polyarthralgia 07/02/[address] [address] Zia Bower MD Chronic pain syndrome; Mood disorder (CMS/HCC); Polyarthralgia 06/23/[address] [address] Chris Gonzales ANP No Show 06/13/2024 Patient Outreach [address] [address] Chris Gonzales ANP Pre-visit Planning (Pre-visit planning - LVM ) 06/02/[address] [address] Jeaneth Houston MA DME from [facility] 05/31/[address] [address] Lyndsay Rodgers RNradiology transporter (Wegovy 2.4mg) 05/30/2024 Refill [facility] [address], [place] [phone] Chris Gonzales ANP 05/08/[address] [address] Maria De Jesus Ramos, ROLANDO Results; Appointment Confirmation 05/03/2024 6:00 PM EST Office Visit [facility] [address] [address] Jimbo Lo MD Right flank pain (Primary Dx); Right lower quadrant abdominal pain; Primary hypertension 05/03/2024 Orders Only [facility] External Provider, [facility] 05/03/2024 Refill [facility] [address] [place] [address] Chris Gonzales ANP Undifferentiated connective tissue disease (CMS/HCC) 04/28/2024 Refill [facility] [address] [place] [address] Marisol Briones LPN Class 3 severe obesity with serious comorbidity and body mass index (BMI) of 40.0 to 44.9 in adult, unspecified obesity type (CMS/HCC) (Primary Dx); Primary hypertension 04/24/2024 Telephone [facility] [address] [place] [address] HoustonJeaneth smith MA June recall from Last 3 Months Immunizations Name Administration Dates Next Due Hep B, adult 04/26/2007 Influenza injectable quadriv alent IIV4 with preservative 06/01/2017 Influenza injectable quadriv alent preservative free 04/09/2023 Influenza, Split (incl. yvonne fied surface antigen) 03/29/2013 Influenza, seasonal, injecta ble, preservative free 03/22/2024 MMR 04/26/2007 Moderna Covid-19 Vaccine 12+ 07/23/2021,12/03/19 21,10/29/2020 Rabies, intramuscular 01/10/2019 TD (adult), 2 Lf tetanus tox oid, preservative free, adsorbed 01/10/2019,09/28/1997 Tdap 12/12/2022,03/29/2013 Family History Medical History Relation Name Comments Glaucoma Neg Hx Social History Tobacco Use Types Packs/Day Years Used Date Smoking Tobacco: Some Days Cigarettes Smokeless Tobacco: Never Tobacco Cessation:Ready to Q uit: Not Asked; Counseling Given: Not Answered Depression Answer Date Recorded Patient Health Questionnaire-9 [...] Orientation Straight 04/20/2022 10 :14 AM EDT Last Filed Vital Signs Vital Sign Reading Time Taken Comments Blood Pressure 154/98 07/13/2024 2:04 PM EST man ual Pulse 95 07/13/2024 2:04 PM EST Temperature 37.1 ??C (98.8 ??F) 07/13/2024 1:55 PM ES T Respiratory Rate 20 07/13/2024 1:55 PM EST Oxygen Saturation 98% 07/13/2024 1:55 PM EST Inhaled Oxygen Concentration - - Weight 113 kg (249 lb 3.2 oz) 03/22/2024 3:28 PM EDT Height 162.6 cm (5' 4 ) 03/22/2024 3:28 PM EDT Body Mass Index 42.78 03/22/2024 3:28 PM EDT Plan of Treatment Upcoming Encounters Date Type Department Care Team (Late st Contact Info) Description 07/24/2024 2:00 PM EST Clinical Support [facility] [address] [place] [phone] 07/28/2024 1:00 PM EST Clinical Support [facility] [address] [place] [phone] 09/08/2024 1:00 PM EDT Office Visit [facility] [address] [place] [address] Chris Gonzales ANP [address] [place], [place] [phone] Health Maintenance Due Date Last Done Comments CT Colonography 1968 FIT DNA/Cologuard 1968 FIT 1968 FOBT 1970 Sigmoidoscopy 1968 Alcohol/Substance Use Screening 1980 Hepatitis C Screening 1986 Pneumococcal Vaccine: 50+ Years (1 of 2 - PCV) 1987 Hepatitis B Vaccines (2 of 3 - 19+ 3-dose series) 05/24/2007 04/26/2007 Zoster Vaccines (1 of 2) 2018 Cervical Cancer Screening 09/14/2021 HPV/Cotest 09/14/2021 09/14/2018 Pap Smear 09/14/2021 09/14/2018 COVID-19 Vaccine ( - season) 2024 07/23/2021, 12/02/2020, 10/29/2020 Mammogram 03/18/2024 03/18/2023, 08/24/2018 Depression Monitoring (PHQ-9) 06/21/2024 12/20/2023, 12/20/2023 Depression Screening 12/19/2024 12/20/2023, 12/20/19 SDOH Screening 07/04/2025 07/04/2024 Tobacco Screening 07/13/2025 07/13/2024 Lipid Panel 05/18/2028 05/18/2023 Colonoscopy 11/16/2028 11/16/2018 Colorectal Cancer Screening 11/16/2028 DTaP/Tdap/Td Vaccines (4 - Td or Tdap) 12/12/2032 12/12/2022, 01/10/2019, 03/29/2013, Additional history exists RSV Patients and Patients Aged 60 years or older (1 - 1-dose 75+ series) 2043 HIV Screening Completed 05/18/2023 Influenza Vaccine Completed 03/22/2024, , 06/01/2017, Additional history exists HIB Vaccines Aged Out No longer eligi ble based on patient's age to complete this topic HPV Vaccines Aged Out No longer eligi ble based on patient's age to complete this topic Hepatitis A Vaccines Aged Out No long er eligible based on patient's age to complete this topic IPV Vaccines Aged Out No longer eligi ble based on patient's age to complete this topic Meningococcal Vaccine Aged Out No lisa dixie eligible based on patient's age to complete this topic RSV under 20 months Aged Out No longe r eligible based on patient's age to complete this topic Rotavirus Vaccines Aged Out No longer eligible based on patient's age to complete this topic Procedures Procedure Name Priority Date/Time Associated Diagnosis Comments ECG 12-LEAD Routine 07/13/2024 4:39 PM EST Primary hypertension CT ABDOMEN PELVIS WO CONTRAST Routine 05/03/2024 11:32 PM EST CULTURE, URINE, ROUTINE Routine 05/03/2024 12:00 AM EST HIV 1/2 ANTIGEN/ANTIBODY, FOURTH GENERATION W/RFL Routine 05/18/2023 12:59 PM EST Memory loss LIPID PANEL, STANDARD Routine 05/18/2023 12:59 PM EST Lipid screening BI MAMMOGRAM SCREENING TOMOSYNTHESIS BILATERAL Routine 03/18/2023 1:11 PM EDT HM COLONOSCOPY Routine 11/16/2018 ZZZ HISTORICAL HPV MRNA E6/E7 Routine 09/14/2018 2:07 PM EDT HM PAP/HPV Routine 09/14/2018 12:00 AM EDT from Last 3 Months or Most Recently Relevant to Health Maintenance Results * ECG 12 lead (07/13/2024 4:39 PM EST) Narrative Chris Gonzales ANP - 07/13/2024 4:39 PM EST HR 95 (98 on 2nd tracing) Appears stable versus EKG above from cards us Chris ALANIS ECG ORDERABLES Final Result * CT Abdomen Pelvis w/o Contrast (05/03/2024 11:32 PM EST) Anatomical Region Laterality Modality Body, Pelvis, Abdomen Computed T omography 05/03/2024 11:3 2 PM EST Narrative 05/04/2024 12:52 AM EST ? [facility] ?[address] ?[place] [address] ? CT Scan Report ? Signed ? Patient: Colon,Sonia ?MR#: [id number] ? : 1970 ?Acct:[id number] ? Age/Sex: 53 / F ?ADM Date: 05/03/24 ? Loc: HO.ED ? Attending Dr: ? Ordering Physician: Ricco Ramos ?? Date of Service: 05/03/24 ?? Procedure(s): CT abdomen pelvis wo IV con ?? Accession Number(s): [id number] ? cc: Ricco Ramos; CHRIS GONZALES NP ? EXAMINATION: ?? CT ABDOMEN AND PELVIS WITHOUT CONTRAST ? CLINICAL INFORMATION: ?? Right-sided flank pain ? COMPARISON: ?? CT abdomen pelvis 11/05/2021 ? TECHNIQUE: ?? Multidetector volumetric imaging was performed from the superior aspect ?? of the liver through the pubic symphysis. Sagittal and coronal ?? reformatted images were obtained on the technologist's workstation. ? This CT examination was performed using dose optimization techniques as ?? appropriate, variously including the following: ?? *Automated exposure control ?? *Adjustment of mA and/or kV according to patient size (this includes ?? techniques or standardized protocols for targeted exams where dose is ?? matched to indication/reason for exam; i.e. extremities or head) ?? *Use of iterative reconstruction technique ? DLP: ?? 910 mGy-cm ? FINDINGS: ?? LUNG BASES: The visualized lung bases are unremarkable. ? LIVER, GALLBLADDER, AND BILIARY TREE: The liver is mildly enlarged ?? measuring almost 18 cm in greatest length. Attenuation and shape is ?? normal. No focal hepatic lesion or biliary ductal dilatation is ?? present. The gallbladder is unremarkable with no evidence of radiopaque ?? gallstones, gallbladder wall thickening, or obvious pericholecystic ?? inflammatory changes. ? PANCREAS: Unremarkable. ? SPLEEN: Unremarkable. ? ADRENAL GLANDS: Unremarkable. ? KIDNEYS AND URETERS: The kidneys are normal in size, shape, and ?? attenuation. Previously seen obstructing stone in the left proximal ?? ureter with associated hydronephrosis is no longer present. There is a ?? nonobstructing 2 mm calculus in the left mid kidney. ? There is nonspecific stranding seen around both kidneys with some small ?? amount of fluid in the anterior pararenal space on the right which is ?? around the right ureter. There is mild right-sided pelvocaliectasis. ?? There is a punctate less than 2 mm sized calcification seen overlying ?? the course of the mid to distal right ureter (4:506) which was not seen ?? at the time of the prior study. This likely represents an obstructing ?? calculus ?There is some mild thickening of the uroepithelium bilaterally. ? BLADDER: Unremarkable. ? GASTROINTESTINAL TRACT: The small and large bowel are unremarkable ?? aside from a few scattered colonic diverticula without diverticulitis. ?? The appendix is not seen with certainty.. ? ABDOMINAL WALL: Tiny periumbilical hernia seen containing only fat. ? Again seen is a lipoma in the right lateral abdominal wall musculature ? LYMPH NODES: No retroperitoneal lymphadenopathy. ? VASCULAR: Unremarkable. ? PELVIC VISCERA: The uterus is not seen. An abnormal adnexal mass is not ?? detected. No free intraperitoneal fluid is present. ? OSSEOUS STRUCTURES: Unremarkable. ? CT/CT abdomen pelvis wo IV con ?? IMPRESSION: ?? 1. ??There is a punctate less than 2 mm sized calcification seen ?? overlying the course of the mid to distal right ureter which was not ?? seen at the time of the prior study. This likely represents an ?? obstructing calculus. ?? 2. ??There is nonspecific stranding seen around both kidneys with some ?? small amount of fluid in the anterior pararenal space on the right ?? which is around the right ureter. There is some mild thickening of the ?? uroepithelium bilaterally. ?? 3. ??Other incidental findings as described above. ? Fleischner guidelines were followed. ? Electronically signed by: ??Virgil Diaz MD ??05/04/2024 12:48 AM EST ?? RP ? Dictated By: ?Virgil Diaz MD ? Signed By: ?<Electronically signed by Virgil Diaz MD in OV> ? 05/04/248 ? DD/ 2332 ? TD/TT: 05/03/24 2332 ? Marine Mechanic: SS ? Procedure Note Hemanth Rust - 05/04/[address] [address] [address] Scan Report Signed Patient: Leslie Camilo#: [id number] : 1970Acct:[id number] Age/Sex: 53 / FADM Date: 05/03/24 Loc: HO.ED Attending Dr: Ordering Physician: Ricco Ramos Date of Service: 05/03/24 Procedure(s): CT abdomen pelvis wo IV con Accession Number(s): [id number] cc: Ricco Ramos; CHRIS GONZALES NP EXAMINATION: CT ABDOMEN AND PELVIS WITHOUT CONTRAST CLINICAL INFORMATION: Right-sided flank pain COMPARISON: CT abdomen pelvis 11/05/2021 TECHNIQUE: Multidetector volumetric imaging was performed from the superior aspect of the liver through the pubic symphysis. Sagittal and coronal reformatted images were obtained on the technologist's workstation. This CT examination was performed using dose optimization techniques as appropriate, variously including the following: *Automated exposure control *Adjustment of mA and/or kV according to patient size (this includes techniques or standardized protocols for targeted exams where dose is matched to indication/reason for exam; i.e. extremities or head) *Use of iterative reconstruction technique DLP: 910 mGy-cm FINDINGS: LUNG BASES: The visualized lung bases are unremarkable. LIVER, GALLBLADDER, AND BILIARY TREE: The liver is mildly enlarged measuring almost 18 cm in greatest length. Attenuation and shape is normal. No focal hepatic lesion or biliary ductal dilatation is present. The gallbladder is unremarkable with no evidence of radiopaque gallstones, gallbladder wall thickening, or obvious pericholecystic inflammatory changes. PANCREAS: Unremarkable. SPLEEN: Unremarkable. ADRENAL GLANDS: Unremarkable. KIDNEYS AND URETERS: The kidneys are normal in size, shape, and attenuation. Previously seen obstructing stone in the left proximal ureter with associated hydronephrosis is no longer present. There is a nonobstructing 2 mm calculus in the left mid kidney. There is nonspecific stranding seen around both kidneys with some small amount of fluid in the anterior pararenal space on the right which is around the right ureter. There is mild right-sided pelvocaliectasis. There is a punctate less than 2 mm sized calcification seen overlying the course of the mid to distal right ureter (4:506) which was not seen at the time of the prior study. This likely represents an obstructing calculus There is some mild thickening of the uroepithelium bilaterally. BLADDER: Unremarkable. GASTROINTESTINAL TRACT: The small and large bowel are unremarkable aside from a few scattered colonic diverticula without diverticulitis. The appendix is not seen with certainty.. ABDOMINAL WALL: Tiny periumbilical hernia seen containing only fat. Again seen is a lipoma in the right lateral abdominal wall musculature LYMPH NODES: No retroperitoneal lymphadenopathy. VASCULAR: Unremarkable. PELVIC VISCERA: The uterus is not seen. An abnormal adnexal mass is not detected. No free intraperitoneal fluid is present. OSSEOUS STRUCTURES: Unremarkable. CT/CT abdomen pelvis wo IV con IMPRESSION: 1. There is a punctate less than 2 mm sized calcification seen overlying the course of the mid to distal right ureter which was not seen at the time of the prior study. This likely represents an obstructing calculus. 2. There is nonspecific stranding seen around both kidneys with some small amount of fluid in the anterior pararenal space on the right which is around the right ureter. There is some mild thickening of the uroepithelium bilaterally. 3. Other incidental findings as described above. Fleischner guidelines were followed. Electronically signed by: Virgil Diaz MD 05/04/2024 12:48 AM [facility] Dictated By: Virgil Diaz MD Signed By: <Electronically signed by Virgil Diaz MD in OV> 05/04/24 0048 DD/ TD/TT: 05/03/242331 Marine Mechanic: MAIN [employer] External Provider IMG CT PROCEDURES Edited Result - Final * Culture, Urine, Routine (05/03/2024 12:00 AM EST) Urine Urine specimen obtained by clean catch procedure / Unknown 05/03/2024 05/03/2024 Comment:[facility] Narrative [facility] - 05/06/2024 7:20 AM EST Escherichia coli Quant > 100,000 cfu/mL Strep agalactiae (Grp B) Quant 10,000 to 50,000 cfu/mL CATH SALES PROJECT COORDINATOR? Susceptibility not routinely performed on this isolate. Escherichia coli: Ampicillin >=32(R) Escherichia coli: Cefazolin 8(S) Escherichia coli: Cefepime <=0.12(S) Escherichia coli: Ceftriaxone <=0.25(S) Escherichia coli: Ciprofloxacin <=0.06(S) Escherichia coli: Gentamicin >=16(R) Escherichia coli: Nitrofurantoin <=16(S) Escherichia coli: Trimethoprim/Sulfamethoxazole >=320(R) Specimen Source: Urine clean catch us Generic External Data Provider LAB MICROBIOLOGY - GENERAL ORDERABLES Final Result [facility] [address] [place] [phone] * HIV-1/2 Antigen and Antibodies, Fourth Generation, with Reflexes (05/18/2023 12:59 PM EST) HIV AB/AG Nonreactive Nonreactive [facility] Comment:HIV-1 p24 Ag and/or HIV-1/HIV-2 Ab not detected.A test result that is nonreactive does not exclude thepossibility of exposure to or infection with HIV-1 and/orHIV-2. Nonreactive results in this assay for individualswith prior exposure to HIV-1 and/or HIV-2 may be due toantigen and antibody levels that are below the limit ofdetection of this assay.The [employer] HIV Ag/Ab Combo assay result andsupplemental assay results should be interpreted inconjunction with the patient's clinical presentation,history and other laboratory results. If the results areinconsistent with clinical evidence, additional testing issuggested to confirm the result. Blood Venous blood specimen / Unknown 05/18/2023 12:59 PM EST 05/18/2023 3:47 PM EST Chris Gonzales [facility] LAB BLOOD ORDERABLES Final Resul t Performing Organization Address [facility] de Phone Number [facility] [address] [place] [phone] * (ABNORMAL) Lipid Panel, Standard (05/18/2023 12:59 PM EST) Triglycerides 175(H) <150 mg/dL [facility] Comment:Desirable Triglyceri de: less than 150 mg/dLBorderline High Triglyceride 150-199 mg/dLHigh Triglyceride: 200-499 mg/dLVery High Triglyceride: greater than or equal to 5OO mg/dL Cholesterol 233(H) <200 mg/dL [facility] Comment:Desirable Cholestero l: less than 200 mg/dLBorderline High Cholesterol: 200-239 mg/dLHigh Cholesterol: greater than 239 mg/dL LDL Cholesterol Calculated 144(H) <100 mg/dL [facility] Comment:Desirable LDL: less than 100 mg/dLNear Optimal/Above Optimal LDL: 110- 129 mg/dLBorderline High LDL: 130-159 mg/dLHigh LDL: 160-189 mg/dLVery High LDL: greater than or equal to 190 mg/dL HDL Cholesterol 54 >40 mg/dL [facility] Comment:Desirable HDL: great er than 40 mg/dL Note: This HDL assay may give artificially low results in patients with liver disease. Blood Venous blood specimen / Unknown 05/18/2023 12:59 PM EST 05/18/2023 3:47 PM EST us Chris Gonzales ANP LAB BLOOD ORDERABLES Final Resul t Performing Organization Address [facility] Co de Phone Number [facility] [address] [place] [phone] * BI Mammogram Screening Tomosynthesis Bilateral (03/18/2023 1:11 PM EDT) Anatomical Region Laterality Modality Breast Bilateral Mammography 03/18/2023 1:11 PM EDT Narrative 04/07/2023 9:22 PM EDT ? [facility] ? [address] ?[place] [address] ? Mammography Report ? Signed ? Patient: Colon,Sonia ?MR#: [id number] ? : 1970 ?Acct:[id number] ? Age/Sex: 52 / F ?ADM Date: 03/18/23 ? Loc: HO.MAMMO ? 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 Ordering Physician: CHRIS GONZALES NP ?Results: 1Negative ? Date of Service: 03/18/23 ?Follow Up: 1 Year From Orig ?? inal Mammogram ? Procedure(s): MM tomosynthesis screening BI ?? Accession Number(s): [id number] ? cc: CHRISTIAN,CHRIS [facility] ? EXAMINATION: ?? MM SCREENING DIGITAL BREAST TOMOSYNTHESIS, BILATERAL ? CLINICAL INFORMATION: ? Screening. Asymptomatic. ? COMPARISON: ?? Mammography: This study is compared with prior exams dating back to ?? 2017. ? TECHNIQUE: ?? Digital breast tomosynthesis is performed in both the craniocaudal and ?? mediolateral oblique views along with computer-aided detection (CAD). ?? Synthesized 2D images are generated from the tomosynthesis. ? FINDINGS: ?? The breasts are almost entirely fatty (ACR BI-RADS breast composition ?? Category a). ? There are no significant masses, abnormal calcifications, or other ?? abnormalities. ? MM/MM tomosynthesis screening BI ?? IMPRESSION: ?? No mammographic evidence of malignancy. ? ASSESSMENT: ? BI-RADS BI-RADS 1 - Negative ? RECOMMENDATION: ?? Routine annual mammography screening. ? 1 year F/U ? This examination should not preclude the clinical evaluation of a ?? suspicious palpable abnormality. ? This patient's information was entered into a reminder system with a ?? target due date for their next mammogram. ? Dictated By: ?Mahi Birmingham MD ? Signed By: ?<Electronically signed by Mahi Birmingham MD in OV> ? 04/07/232117 ? DD/ 1311 ? TD/TT: ? Marine Mechanic: ? Procedure Note Yocasta, Image - 04/07/2023 [facility] [address] [place] [address] Mammography Report Signed Patient: Leslie Camilo#: [id number] : 1970Acct:[id number] Age/Sex: 52 / FADM Date: 03/18/23 Loc: HO.MAMMO Attending Dr: Chris Gonzales NP Ordering Physician: CHRIS GONZALES NPResults: 1Negative Date of Service: 03/18/23Follow Up: 1 Year From Orig inal Mammogram Procedure(s): MM tomosynthesis screening BI Accession Number(s): [id number] cc: CHRIS GONZALES NP EXAMINATION: MM SCREENING DIGITAL BREAST TOMOSYNTHESIS, BILATERAL CLINICAL INFORMATION: Screening. Asymptomatic. COMPARISON: Mammography: This study is compared with prior exams dating back to 2017. TECHNIQUE: Digital breast tomosynthesis is performed in both the craniocaudal and mediolateral oblique views along with computer-aided detection (CAD). Synthesized 2D images are generated from the tomosynthesis. FINDINGS: The breasts are almost entirely fatty (ACR BI-RADS breast composition Category a). There are no significant masses, abnormal calcifications, or other abnormalities. MM/MM tomosynthesis screening BI IMPRESSION: No mammographic evidence of malignancy. ASSESSMENT: BI-RADS BI-RADS 1 - Negative RECOMMENDATION: Routine annual mammography screening. 1 year F/U This examination should not preclude the clinical evaluation of a suspicious palpable abnormality. This patient's information was entered into a reminder system with a target due date for their next mammogram. Dictated By: Mahi Birmingham MD Signed By: <Electronically signed by Mahi Birmingham MD in OV> 04/07/232117 DD/ 1311 TD/TT: Marine Mechanic: Chris ALANIS IMG BI PROCEDURES Edited Result - Final * Colonoscopy (11/16/2018) Colonoscopy Normal Normal 11/16/2018 Love Thompson - 11/16/2018 10:54 AM EDT Recommended 5 year follow up ( [facility] Provider HEALTH MAINTENANCE Final Result * HPV mRNA E6/E7 (09/14/2018 2:07 PM EDT) HPV mRNA E6/E7 Not Detected NOT DETECTED [facility] Comment: This test was performed using the APTIMA(R) HPV Assay ([employer] This assay detects E6/E7 viral messenger RNA (mRNA) from 14 high-risk HPV types (16,18,31,33,35,39,45,51, 52,56,58,59,66,68). For additional information please refer to: http://education.Thubrik[employer] Aortic Valve/faq/KFH014p1 (This link is being provided for informational/ educational purposes only.) The analytical performance characteristics of this assay have been determined by [employer] [place], [place]. The modifications have not been cleared or approved by the FDA. This assay has been validated pursuant to the CLIA regulations and is used for clinical purposes. Test Performed by [facility] [employer] [facility] [place], [address] [place], [place] Samy Agosto M.D., Ph.D., Director of Laboratories , [facility] [id number] Please note: ??Effective 03/02/2016, HPV testing will be performed using [employer]'s APTIMA test which targets mRNA. Detecting mRNA instead of DNA, as in older methods, offers significant improvements in specificity. 09/14/2018 2:07 PM EDT Amalia Tavarez CNM HISTORICAL/NON ORDERABLE LABS Final Result [facility] [address] * Pap Smear (09/14/2018 12:00 AM EDT) Historical Provider HEALTH MAINTENANCE Final Result from Last 3 Months or Most Recently Relevant to Health Maintenance Insurance [employer] Care Teams Welder Assembler Relationship Specialty Start Date End Date Chris Gonzales ANP [address] [place] [address] PCP - General Family Medicine 07/12/20
--- OUTSIDE RECORDS SUMMARY | 2024-07-20 11:57 | XMS_ITS | Encounter Summary ---
Author Organization [employer] Address [address] 7[address] [place] [address] Care Team Providers Care General Worker Name Role Phone Amanda Beckford Primary Care Provider [phone] Reason for Visit * Reason Comments Med Refill Encounter Details Date Type Department Care Team ([facility] st Contact Info) Description 07/02/2024 Refill [facility] MEDICINE [address] [place], [place] [phone] Amanda Beckford ANP 230 [place], [place] [phone] Polyarthralgia Social History Tobacco Use Types Packs/Day [...] 07/24/2024 2:00 PM EST Clinical Support [address] [address] 07/28/2024 1:00 PM EST Clinical Support [address] [address] 09/08/2024 1:00 PM EDT Office Visit [address] [address] Amanda Beckford ANP [address] [place] [address] documented as of this encounter Visit Diagnoses Diagnosis Polyarthralgia Pain in joint, multiple sites documented in this encounter Additional Health Concerns Assessment Noted Time PHQ-9 Depression Total Score: 21 024 2:26 PM EDT documented as of this encounter Care Teams General Worker Relationship Specialty Start Date End Date Amanda Beckford ANP [address] [place] [address] PCP - General Family Medicine 07/12/20 documented as of this encounter
--- OUTSIDE RECORDS SUMMARY | 2024-07-20 11:57 | XMS_ITS | Encounter Summary ---
Author Organization [employer] Address [address] [facility] 7t [place] [address] Care Team Providers Care Education Director Name Role Phone Amanda Beckford Primary Care Provider [phone] Reason for Visit * Reason Comments Med Refill Encounter Details Date Type Department Care Team (Late st Contact Info) Description 06/18/2022 Refill [facility] MEDICINE 230 [place] [address] Amanda Beckford ANP [address] [place] [address] Chronic pain syndrome (Primary Dx); Primary hypertension; Mood disorder (CMS/HCC); Undifferentiated connective tissue disease (CMS/HCC); Menopause Social History Tobacco Use Types Packs/Day Years Used Date Smoking Tobacco: Every Day Cigarettes Smokeless Tobacco: Never Comments Unknown Sex and Gender Information Value Date Recorded Sex Assigned at Female 04/20/2022 10:14 AM EDT Legal Sex Female 10:14 AM EDT Gender Identity Female 04/20/2022 10:14 AM EDT Sexual Orientation Straight 04/20/2022 10 :14 AM EDT COVID-19 Exposure Response Date Recorded In the last 10 days, have rosette feliz been in contact with someone who was confirmed or suspected to have Coronavirus/COVID-19? Unable to assess 06/02/2022 2:57 PM EST documented as of this encounter Plan of Treatment Upcoming Encounters Date Type Department Care Team (Late st Contact Info) Description 07/24/2024 2:00 PM EST Clinical Support [facility] MEDICINE 230 [place], [place] [phone] 07/28/2024 1:00 PM EST Clinical Support [address] [address] 09/08/2024 1:00 PM EDT Office Visit [address] [address] Amanda Beckford ANP [address] [place] [address] documented as of this encounter Visit Diagnoses Diagnosis Chronic pain syndrome- Primary Primary hypertension Unspecified essential hypertension Mood disorder (CMS/HCC) Unspecified episodic mood disorder Undifferentiated connective tissue disease (CMS/HCC) Unspecified diffuse connective tissue disease Menopause Symptomatic menopausal or female climacteric states documented in this encounter Care Teams Education Director Relationship Specialty Start Date End Date Amanda Beckford ANP [address] [place] [address] PCP - General Family Medicine 07/12/20 documented as of this encounter
--- OUTSIDE RECORDS SUMMARY | 2024-07-20 11:57 | XMS_ITS | Encounter Summary ---
Author Organization [employer] Address [address] 7[address] [place] [address] Care Team Providers Care Weather Observer Name Role Phone Amanda Beckford Primary Care Provider Reason for Visit * Reason Comments Pre-visit Planning SDOH Screening negat lina and Tobacco screening negative Encounter Details Date Type Department Care Team ([facility] st Contact Info) Description 07/04/2024 Patient Outreach [facility] MEDICINE 230 [place], [place] [phone] Amanda Beckford ANP 230 [place], [place] [phone] Pre-visit Planning (SDOH Screening negative and Tobacco screening negative) Social History Tobacco Use Types Packs/Day Years [...] AM EDT documented as of this encounter Progress Notes * Rani Haines - 07/04/2024 11:07 AM EST CC Rani Phan placed successful outbound call to patient for pre-visit planning. Patient name and confirmed. Patient confirms appt date and time, and has transportation arrangements. Biggest concern for appointment at this time is no concerns for now. Patient advised to bring to appointment a photo id and insurance card. Appropriate screenings completed in anticipation of appointment. documented in this encounter Plan of Treatment Upcoming Encounters Date Type Department Care Team (Late st Contact Info) Description 07/24/2024 2:00 PM EST Clinical Support [address] [address] 07/28/2024 1:00 PM EST Clinical Support [address] [address] 09/08/2024 1:00 PM EDT Office Visit [address] [address] Amanda Beckford ANP [address] [place] [address] documented as of this encounter Visit Diagnoses Not on filedocumented in this encounter Additional Health Concerns Assessment Noted Time PHQ-9 Depression Total Score: 21 024 2:26 PM EDT documented as of this encounter Care Teams Weather Observer Relationship Specialty Start Date End Date Amanda Beckford ANP [address] [place] [address] PCP - General Family Medicine 07/12/20 documented as of this encounter
--- OUTSIDE RECORDS SUMMARY | 2024-07-20 11:57 | XMS_ITS | Encounter Summary ---
Author Organization [employer] Address [address] 7[address] [place] [address] Care Team Providers Care Taker Off Name Role Phone Amanda Beckford Primary Care Provider [phone] Reason for Visit * Reason Onset Date Comments Med Refill 07/19/2023 Encounter Details Date Type Department Care Team (Late st Contact Info) Description 07/19/2023 Telephone [facility] MEDICINE 230 [place], [place] [phone] Amanda Beckford ANP 230 [place], [place] [phone] Med Refill Social History Tobacco Use Types Packs/Day Years [...] encounter Miscellaneous Notes * Telephone Encounter - Celine Mandujano - 07/20/2023 2:38 PM EST Tc from pt requesting status on medication. States she has not medication and she uses medication to sleep . * Telephone Encounter - Aleshia Olson LPN - 07/19/2023 4:13 PM EST Medication has been pended to PCP today awaiting approval. * Telephone Encounter - Carolina Greene - 07/19/2023 4:07 PM EST TC from pt requesting medication refill. Medications needing refill : QUEtiapine (SEROquel) 200 MG tablet To be sent to: [facility] - [place], [place] - [address] [place] [address] documented in this encounter Plan of Treatment Upcoming Encounters Date Type Department Care Team (Late st Contact Info) Description 07/24/2024 2:00 PM EST Clinical Support [facility] MEDICINE [address] [place] [address] 07/28/2024 1:00 PM EST Clinical Support [facility] [address] [place] [address] 09/08/2024 1:00 PM EDT Office Visit [facility] [address] [place] [address] Amanda Beckford ANP [address] [place] [address] documented as of this encounter Visit Diagnoses Not on filedocumented in this encounter Additional Health Concerns Assessment Noted Time PHQ-9 Depression Total Score: 12 023 2:07 PM EDT documented as of this encounter Care Teams Taker Off Relationship Specialty Start Date End Date Amanda Beckford ANP [address] [place] [address] PCP - General Family Medicine 07/12/20 documented as of this encounter
--- OUTSIDE RECORDS SUMMARY | 2024-07-20 11:57 | XMS_ITS | Encounter Summary ---
Author Organization [employer] Address [address] 7t [place] [address] Care Team Providers Care It Applications Analyst Name Role Phone Analy mAanda ALANIS Primary Care Provider [phone] Reason for Visit * Reason Comments Med Refill Encounter Details Date Type Department Care Team (Late st Contact Info) Description 07/19/2023 Refill [facility] [address] [facility] [place], [place] [phone] Lis Cortez FNP Chronic pain syndrome Social [...] Description 07/24/2024 2:00 PM EST Clinical Support [address] [address] 07/28/2024 1:00 PM EST Clinical Support [address] [address] 09/08/2024 1:00 PM EDT Office Visit [address] [address] Amanda Beckford ANP [address] [place] [address] documented as of this encounter Visit Diagnoses Diagnosis Chronic pain syndrome documented in this encounter Additional Health Concerns Assessment Noted Time PHQ-9 Depression Total Score: 12 023 2:07 PM EDT documented as of this encounter Care Teams It Applications Analyst Relationship Specialty Start Date End Date Amanda Beckford ANP [address] [place] [address] PCP - General Family Medicine 07/12/20 documented as of this encounter
--- OUTSIDE RECORDS SUMMARY | 2024-07-20 11:57 | XMS_ITS | Encounter Summary ---
Author Organization [employer] Address [address] [facility] 7t [place] [address] Care Team Providers Care Amusement Park Ride Mechanic Name Role Phone Amanda Beckford Primary Care Provider [phone] Reason for Visit * Reason Onset Date Comments Nurse Triage 12/30/2022 Encounter Details Date Type Department Care Team (Late st Contact Info) Description 12/30/2022 Telephone [facility] MEDICINE 230 [place] [address] Amanda Beckford ANP 230 [place] [address] Nurse Triage Social History Tobacco Use Types [...] encounter Miscellaneous Notes * Telephone Encounter - Saritha Rodriguez LPN - 01/06/2023 1:00 PM EDT Patient called the call center, territory account representative assisted with pakistani translation regarding questions, patient does live alone, she does have family but they do not see each other much. Patient does have HHS, Shower bench, commode, walker, electric w/c or scooter unsure per small wind energy installer. Patient does live in a handicapped apartment. Patient currently gets WEBLOGIC ADMINISTRATOR 36 hrs daytime hours, 0 night time hours, has a commode for night time use if has to go. Paperwork needs to be reviewed with PCP regarding the adding of 14 night time hours and significant increase in daytime hours, has to have significant change in medical condition, provider to review at scheduled 01/21/23. * Telephone Encounter - Tesha Fischer RN - 12/30/2022 2:01 PM EDT Triage call with [employer] Claims Supervisor [place] [id number] Pt reports a fall 2 weeks ago. Pt lives in an apartment on the third floor and fell in the hallway . Pt reports fell on knees didn't hit her head but, has shoulder pain, bilateral knee pain and generalized all over pain. Pt didn't go to the ED for evaluation and reports has osteoporosis and severe arthritis. Pt denies bruising, open areas of skin . Pt is unable to walk long distances only short distances. Pt reports medications for pain are not working and Pt would like to see provider. AdvisedPt to come to [facility] today and be seen by provider and Pt agreed . Pt reports will call someone to give Pt a ride. Hours of operation given to Pt. Insurance is verified as active. Protocol Used: Falls and Falling (Adult) Protocol-Based Disposition: See in Office or Video Visit within 3 Days Positive Triage Question: * Patient wants to be seen * All higher-acuity triage questions were negative Care Advice Discussed: * Reassurance and Education * Reasons To Call Back - You become worse. * Telephone Encounter - Jane Riggs - 12/30/2022 1:24 PM EDT Symptom: Shoulder Pain - Not From Injury Outcome: Schedule an urgent appointment (within 1 hour) or talk to a nurse or provider soon Reason: Severe pain now The caller accepted this outcome Please contact pt at [phone] (Sami speaker) documented in this encounter Plan of Treatment Upcoming Encounters Date Type Department Care Team (Late st Contact Info) Description 07/24/2024 2:00 PM EST Clinical Support [address] [address] 07/28/2024 1:00 PM EST Clinical Support [address] [address] 09/08/2024 1:00 PM EDT Office Visit [address] [address] Amanda Beckford ANP [address] [place] [address] documented as of this encounter Visit Diagnoses Not on filedocumented in this encounter Care Teams Amusement Park Ride Mechanic Relationship Specialty Start Date End Date Amanda Beckford ANP [address] [place] [address] PCP - General Family Medicine 07/12/20 documented as of this encounter
--- OUTSIDE RECORDS SUMMARY | 2024-07-20 11:57 | XMS_ITS | Encounter Summary ---
Author Organization [employer] Address [address] [facility] 7t [place] [address] Care Team Providers Care Banking Consultant Name Role Phone Amanda Beckford Primary Care Provider [phone] Reason for Visit * Reason Onset Date Comments other 12/28/2022 Encounter Details Date Type Department Care Team (Late st Contact Info) Description 12/28/2022 Telephone [facility] MEDICINE 230 [place], [place] [phone] Amanda Beckford ANP 230 [place] [address] other Social History Tobacco Use Types Packs/Day Years [...] encounter Miscellaneous Notes * Telephone Encounter - ZKEE Luna - 12/31/2022 12:55 PM EDT Thank you, have asked team RN to call to triage pt for sooner visit * Telephone Encounter - Saritha Rodriguez LPN - 12/29/2022 12:33 PM EDT Renetta carmen/ Maryann Hemmingsen, RN @ [facility] regarding patient's renewal on hours. Patient used to get36 hours/week day time and zero night time hours. Maryann reports her notes indicates patient reporting she is falling more at night when going to bathroom, patient reports having fibromyalgia, primary osteoarthritis, confusion, forgetful, hard time following directions, impaired cognition, impaired initiation, poor endurance, increase weakness, impairment with standing, bending and balance, having incontinence using briefs, visual/auditory hallucinations using a walker and patient is living alone when addressed she should be on AFC and asked if she has a commode for night, nurse does not know if she does or not. Informed the nurse that we would be addressing this with provider, patient has an appt scheduled so he can assess patient for appropriate needs/services. Asked about the [employer] being in the home with patient for 36 hours, they would be contacting their agency/suprv on changes with patient. She reports that their is no oversight, consumer based like Nick[employer], however I addressed t debbi Olmos has oversight with patient's so if there is a problem the [employer] could contact someone regarding patient. With all this information unsure if patient is safe to be left alone at home, may need further services ie: AFC as mentioned prior. Will refer to provider and will follow up with nurseregarding her recap on visit. * Telephone Encounter - Jane Riggs - 12/28/2022 12:12 PM EDT Tc from pt requesting status on paperwork for [employer] services. Needs it as soon as possible. Pt is currently crying on the phone. States all she needs is the paperwork to be signed. Please contact pt at [phone] documented in this encounter Plan of Treatment Upcoming Encounters Date Type Department Care Team (Late st Contact Info) Description 07/24/2024 2:00 PM EST Clinical Support [address] [address] 07/28/2024 1:00 PM EST Clinical Support [address] [address] 09/08/2024 1:00 PM EDT Office Visit [facility] MEDICINE 230 [place] [address] Amanda Beckford ANP [address] [place] [address] documented as of this encounter Visit Diagnoses Not on filedocumented in this encounter Care Teams Banking Consultant Relationship Specialty Start Date End Date Amanda Beckford ANP [address] [place] [address] PCP - General Family Medicine 07/12/20 documented as of this encounter
--- OUTSIDE RECORDS SUMMARY | 2024-07-20 11:57 | XMS_ITS | Encounter Summary ---
Author Organization [employer] Address [address] 7[address] [place] [address] Care Team Providers Care Health Assessment And Treatment Teacher Name Role Phone Amanda Beckford Primary Care Provider [phone] Encounter Details Date Type Department Care Team (Late st Contact Info) Description 07/14/2024 Telephone [facility] MEDICINE 230 [place], [place] [phone] Amanda Beckford ANP 230 [place] [address] Social History Tobacco Use Types Packs/Day Years [...] encounter Miscellaneous Notes * Telephone Encounter - Hipolito Quiñones RN - 07/14/2024 9:38 AM EST TC placed to [facility] cardiovascular spoke to bilingual receptionist Bree who reports she will reach out to the patient to book a f/u with the LEASING SALES CONSULTANT as the provider isn't booking until September. Bree confirmed patients phone number and will reach out to her. * Telephone Encounter - Hipolito Quiñones RN - 07/14/2024 9:38 AM EST ----- Message from Amanda Beckford sent at 07/13/2024 4:46 PM EST ----- Please call [facility] cardiology to request that they out reach patient for follow-up visit with Dr. Cain for tachycardia and abnormal echo. Thank you documented in this encounter Plan of Treatment Upcoming Encounters Date Type Department Care Team (Late st Contact Info) Description 07/24/2024 2:00 PM EST Clinical Support [facility] MEDICINE [address] [place] [address] 07/28/2024 1:00 PM EST Clinical Support [facility] MEDICINE [address] [place] [address] 09/08/2024 1:00 PM EDT Office Visit [address] [address] Amanda Beckford ANP 230 [place] [address] documented as of this encounter Visit Diagnoses Not on filedocumented in this encounter Additional Health Concerns Assessment Noted Time PHQ-9 Depression Total Score: 21 024 2:26 PM EDT documented as of this encounter Care Teams Health Assessment And Treatment Teacher Relationship Specialty Start Date End Date Amanda Beckford ANP 230 [place] [address] PCP - General Family Medicine 07/12/20 documented as of this encounter
== END 2024-07-20 10:04 | disposition home or self-care (01) ==
PROVIDERS: PCP Nurse Practitioner Primary Care; Visit Provider Nurse Practitioner Family
DX: R06.02 Shortness of breath (principal); I47.29 Other ventricular tachycardia; I51.7 Cardiomegaly; R00.2 Palpitations; I10 Essential (primary) hypertension
CPT/HCPCS: 93010; 99214

== ENCOUNTER → 2024-07-20 09:00 | Outpatient (BNVA) | payer MEDICAID, SELFPAY | PROVIDERS: PCP Nurse Practitioner Primary Care; Visit Provider Nurse Practitioner Family | DX: I10 Essential (primary) hypertension (principal); I51.7 Cardiomegaly; I47.29 Other ventricular tachycardia; R06.02 Shortness of breath; R00.2 Palpitations; E66.01 Morbid (severe) obesity due to excess calories; Z68.41 Body mass index [BMI] 40.0-44.9, adult | CPT/HCPCS: 93005; 99212 ==

== ENCOUNTER 2024-08-11 13:18 | Outpatient (REF) | payer MEDICAID, SELFPAY ==
--- OUTSIDE RECORDS SUMMARY | 2024-08-11 13:45 | XMS_ITS | Encounter Summary ---
Author Organization [employer] Address [address] [facility] 7t [place] [address] Care Team Providers Care Dental Technologist Name Role Phone Amanda Beckford Primary Care Provider Encounter Details Date Type Department Care Team (Late st Contact Info) Description 11/03/[address] [address] Amanda Beckford ANP [address] [place] [address] Social History Tobacco Use Types Packs/Day Years [...] Care Team (Late st Contact Info) Description 09/08/2024 1:00 PM EDT Office Visit [address] [address] Amanda Beckford ANP 230 [place] [address] documented as of this encounter Procedures Procedure Name Priority Date/Time Associated Diagnosis Comments COLONOSCOPY Routine 11/16/2018 PAP/HPV Routine 09/14/2018 12:00 AM EDT documented in this encounter Results * Colonoscopy (11/16/2018) Colonoscopy Normal Normal 11/16/2018 Narrative Love Morton - 11/16/2018 10:54 AM EDT Recommended 5 year follow up ( [facility] [place] us Historical Provider HEALTH MAINTENANCE Final Result * Pap Smear (09/14/2018 12:00 AM EDT) us Historical Provider HEALTH MAINTENANCE Final Result documented in this encounter Visit Diagnoses Not on filedocumented in this encounter Care Teams Dental Technologist Relationship Specialty Start Date End Date Amanda Beckford ANP [address] [place] [address] PCP - General Family Medicine 07/12/20 documented as of this encounter
--- OUTSIDE RECORDS SUMMARY | 2024-08-11 13:45 | XMS_ITS | Encounter Summary ---
Author Organization [email or web address] Address 75 [facility] 7t [place] [address] Care Team Providers Care Exchange Floor Manager Name Role Phone Amanda Beckford Primary Care Provider [phone] Reason for Visit * Reason Onset Date Comments Nurse Triage 12/30/2022 Encounter Details Date Type Department Care Team (Late st Contact Info) Description 12/30/2022 Telephone [facility] MEDICINE [address] [place] [address] Amanda Beckford ANP 230 [place] [address] Nurse Triage Social History Tobacco Use Types [...] PM EDT Patient called the call center, sales representative facility services assisted with malay translation regarding questions, patient does live alone, she does have family but they do not see each other much. Patient does have HHS, Shower bench, commode, walker, electric w/c or scooter unsure per assistant professor of sociology. Patient does live in a handicapped apartment. Patient currently gets ELECTROSTATIC PAINT OPERATOR 36 hrs daytime hours, 0 night time [...] 12/30/2022 2:01 PM EDT Triage call with [employer] Operator [place] [id number] Pt reports a fall 2 weeks ago. [...] to see provider. AdvisedPt to come to [facility] today and be seen by provider and [...] accepted this outcome Please contact pt at [phone] (Faroese speaker) documented in this encounter Plan of Treatment Upcoming Encounters Date Type Department Care Team (Late st Contact Info) Description 09/08/2024 1:00 PM EDT Office Visit [facility] [address] [place] [address] Amanda Beckford ANP 230 [place] [address] documented as of this encounter Visit Diagnoses Not on filedocumented in this encounter Care Teams Exchange Floor Manager Relationship Specialty Start Date End Date Amanda Beckford ANP 230 [place] [address] PCP - General Family Medicine 07/12/20 documented as of this encounter
--- OUTSIDE RECORDS SUMMARY | 2024-08-11 13:45 | XMS_ITS | Encounter Summary ---
Author Organization [employer] Address [address] [facility] [address] 7t [place] [address] Care Team Providers Care Air Brush Artist Name Role Phone Analy Amanda ALANIS Primary Care Provider [phone] Encounter Details Date Type Department Care Team (Late st Contact Info) Description 07/24/2024 9:30 AM EST Office Visit [facility] OPTOMETRY [address], [place] [phone] Sarthak, Ella, OD [address] [place], [place] [phone] Myopia of both eyes (Primary Dx) Social History Tobacco Use Types Packs/Day Years [...] as of this encounter Progress Notes * Ella De León OD - 07/24/2024 9:30 AM EST MH glasses were dispensed. documented in this encounter Plan of Treatment Upcoming Encounters Date Type Department Care Team (Late st Contact Info) Description 09/08/2024 1:00 PM EDT Office Visit [facility] MEDICINE [address] [place] [address] Amanda Beckford ANP [address] [place] [address] documented as of this encounter Visit Diagnoses Diagnosis Myopia of both eyes- Primary documented in this encounter Additional Health Concerns Assessment Noted Time PHQ-9 Depression Total Score: 21 024 2:26 PM EDT documented as of this encounter Care Teams Air Brush Artist Relationship Specialty Start Date End Date Amanda Beckford ANP [address] [place] [address] PCP - General Family Medicine 07/12/20 documented as of this encounter
--- OUTSIDE RECORDS SUMMARY | 2024-08-11 13:45 | XMS_ITS | Encounter Summary ---
Author Organization [employer] Address [address] [facility] [address] 7t [place] [address] Care Team Providers Care Cycle Liaison Name Role Phone Analy Amanda ALANIS Primary Care Provider [phone] Reason for Visit * Reason Comments Med Refill Encounter Details Date Type Department Care Team (Late st Contact Info) Description 07/19/2023 Refill [facility] [address] [facility] [place], [place] [phone] Lis Cortez FNP Chronic pain syndrome Social [...] Description 09/08/2024 1:00 PM EDT Office Visit [facility] MED[facility]INE [address] [place] [address] Amanda Beckford ANP [address] [place] [address] documented as of this encounter Visit Diagnoses Diagnosis Chronic pain syndrome documented in this encounter Additional Health Concerns Assessment Noted Time PHQ-9 Depression Total Score: 12 023 2:07 PM EDT documented as of this encounter Care Teams Cycle Liaison Relationship Specialty Start Date End Date Amanda Beckford ANP [address] [place] [address] PCP - General Family Medicine 07/12/20 documented as of this encounter
--- OUTSIDE RECORDS SUMMARY | 2024-08-11 13:45 | XMS_ITS | Encounter Summary ---
Author Organization [employer] Address [address] [facility] 7t [place] [address] Care Team Providers Care Body Worker Name Role Phone Amanda Beckford Primary Care Provider [phone] Reason for Visit * Reason Onset Date Comments other 12/28/2022 Encounter Details Date Type Department Care Team ([facility] st Contact Info) Description 12/28/2022 Telephone [facility] MEDICINE [address] [place], [place] [phone] Amanda Beckford ANP [address] [place] [address] other Social History Tobacco Use Types Packs/Day [...] encounter Miscellaneous Notes * Telephone Encounter - ZEKE Luna - 12/31/2022 12:55 PM EDT Thank [...] patient for appropriate needs/services. Asked about the THERAPEUTIC RECREATION ASSISTANT being in the home with patient for 36 hours, they would be contacting their agency/suprv on changes with patient. She reports that their is no oversight, consumer based like [employer], however I addressed t debbi Olmos has oversight with patient's so if there is a problem the THERAPEUTIC RECREATION ASSISTANT could contact someone regarding patient. With all this information unsure if patient is safe to be left alone at home, may need further services ie: [facility] as mentioned prior. Will refer to provider and will follow up with nurseregarding her recap on visit. * Telephone Encounter - Jane Riggs - 12/28/2022 12:12 PM EDT Tc from pt requesting status on paperwork for THERAPEUTIC RECREATION ASSISTANT services. Needs it as soon as possible. Pt is currently crying on the phone. States all she needs is the paperwork to be signed. Please contact pt at [phone] documented in this encounter Plan of Treatment Upcoming Encounters Date Type Department Care Team (Late st Contact Info) Description 09/08/2024 1:00 PM EDT Office Visit [facility] MEDICINE [address] [place], [place] [phone] Amanda Beckford ANP [address] [place] [address] documented as of this encounter Visit Diagnoses Not on filedocumented in this encounter Care Teams Body Worker Relationship Specialty Start Date End Date Amanda Beckford ANP [address] [place] [address] PCP - General Family Medicine 07/12/20 documented as of this encounter
--- OUTSIDE RECORDS SUMMARY | 2024-08-11 13:45 | XMS_ITS | Encounter Summary ---
Author Organization [employer] Address [address] [facility] [address] 7t [place] [address] Care Team Providers Care Event Staff Member Name Role Phone Analy Amanda ALANIS Primary Care Provider [phone] Reason for Visit * Reason Comments Med Refill Encounter Details Date Type Department Care Team (Late st Contact Info) Description 07/19/2023 Refill [facility] 230 [place], [place] [phone] Anna Marie Sapp MD 230 [place], [place] [phone] Undifferentiated connective tissue disease (CMS/HCC) Social History [...] Description 09/08/2024 1:00 PM EDT Office Visit [facility] MEDICINE [address] [place] [address] Amanda Beckford ANP [address] [place] [address] documented as of this encounter Visit Diagnoses Diagnosis Undifferentiated connective tissue disease (CMS/HCC) Unspecified diffuse connective tissue disease documented in this encounter Additional Health Concerns Assessment Noted Time PHQ-9 Depression Total Score: 12 023 2:07 PM EDT documented as of this encounter Care Teams Event Staff Member Relationship Specialty Start Date End Date Amanda Beckford ANP [address] [place] [address] PCP - General Family Medicine 07/12/20 documented as of this encounter
--- OUTSIDE RECORDS SUMMARY | 2024-08-11 13:45 | XMS_ITS | Encounter Summary ---
Author Organization [employer] Address [address] [facility] [address] 7t [place] [address] Care Team Providers Care Brewery Worker Name Role Phone Amanda Beckford Primary Care Provider [phone] Reason for Visit * Reason Comments RN BP CHECK Encounter Details Date Type Department Care Team (Latest Contact Info) Description 07/28/2024 1:00 PM EST Clinical Support [facility] [address] [place], [place] [phone] Bree Holman RN Primary hypertension Social History Tobacco Use Types Packs/Day Years Used Date Smoking Tobacco: Some Days Cigarettes Smokeless Tobacco: Never Depression Answer Date Recorded Patient Health Questionnaire-9 Score 21 12/20/2023 Patient Health Questionnaire-9 Score 21 12/20/2023 Last PHQ-9: Questionnaire Data Not on file 0 12/20/2023 Housing Stability Answer Date Recorded What is your housing situation today? I have sandratray lópez 03/14/[address] you [...] t he electric, gas, oil or water [employer] threatened to shut off services in your [...] Sign Reading Time Taken Comments Blood Pressure 148/90 07/28/2024 1:22 PM EST Pulse 92 07/28/2024 1:22 PM EST Temperature - - Respiratory Rate 18 07/28/2024 1:22 PM EST Oxygen Saturation 98% 07/28/2024 1:22 PM EST Inhaled Oxygen Concentration - - Weight - - Height - - Body Mass Index - - documented in this encounter Progress Notes * Bree Holman RN - 07/28/2024 1:00 PM EST BP CHECK S: Pt here for BP check nurse visit. At last appointment on 07/13/2024 with PCP pt's BP noted to be 154/98. Recommendations made on that day were to keep log of home BP numbers and return for a BP check in two weeks .Pt are currently taking Amlodipine 10 MG, Hydrochlorothiazide 25 MG and Lisinopril 40 MG. Today, pt denies any blurred vision, shortness of breath, chest pain, dizziness, or headaches. Pt reports compliance with BP medication regimen, confirms that BP medications were taken today io0603 PM. Pt states that she takes her medications in the afternoon most days O: Please see pt blood pressure numbers in the vital signs section. There are two sets of numbers as the pt had elevated blood pressure in the first reading of 162/100. After sitting for ten minutes the blood pressure came down to 148/90 which is below the reading taken on 07/13/2024. A: Noncompliance with BP medication regimen BP not at goal of <140/90 Reinforcement of Lifestyle modification including low sodium diet and exercise. P: Pt informed that PCP Amanda Beckford will be informed of today's blood pressure readings. The pt was reminded to keep a home log of BP numbers as none were brought today. Pt reminded of next office appton 09/08/2024. Pt advised to continue taking meds as directed and follow a low fat/sodium diet and exercise as tolerated. Pt to f/u with PCP as needed. Pt agrees with plan and verbalized understanding. * ZEKE Luna - 07/28/2024 1:00 PM EST Thanks - please confirm with pt that she is taking meds as adjusted by cardiology: They started: metoprolol XL 25 mg daily. They reduced her lisinopril down to 20 mg daily. No change to amlodipine. thanks * Bree Holman RN - 07/28/2024 1:00 PM EST TC placed to pt with a rope cutter to confirm that current antihypertensive medication is being taken as prescribed by cardiology. Pt confirms that Metoprolol XL 25 mg and Lisinopril 20 mg arethe correct doses. Pt denied any further concerns or new onset symptoms in regards to blood pressure or current medications. documented in this encounter Plan of Treatment Upcoming Encounters Date Type Department Care Team (Late st Contact Info) Description 09/08/2024 1:00 PM EDT Office Visit [facility] 230 [place] [address] Amanda Beckford ANP [address] [place] [address] documented as of this encounter Visit Diagnoses Diagnosis Primary hypertension Unspecified essential hypertension documented in this encounter Additional Health Concerns Assessment Noted Time PHQ-9 Depression Total Score: 21 024 2:26 PM EDT documented as of this encounter Care Teams Brewery Worker Relationship Specialty Start Date End Date Amanda Beckford ANP 230 [place] [address] PCP - General Family Medicine 07/12/20 documented as of this encounter
--- OUTSIDE RECORDS SUMMARY | 2024-08-11 13:45 | XMS_ITS | Encounter Summary ---
Author Organization [employer] Address [address] [facility] [address] 7t [place] [address] Care Team Providers Care Nuclear Physicist Name Role Phone Amanda Beckford Primary Care Provider [phone] Reason for Visit * Reason Onset Date Comments Med Refill 07/19/2023 Encounter Details Date Type Department Care Team (Late st Contact Info) Description 07/19/2023 Telephone [facility] MEDICINE [address] [place], [place] [phone] Amanda Beckford ANP 230 [place], [place] [phone] Med Refill Social History Tobacco Use Types [...] 200 MG tablet To be sent to: [facility] - [place], [place] - [address] [facility] documented in this encounter Plan of Treatment Upcoming Encounters Date Type Department Care Team (Late st Contact Info) Description 09/08/2024 1:00 PM EDT Office Visit [facility] MEDICINE [address] [place] [address] Amanda Beckford ANP [address] [place] [address] documented as of this encounter Visit Diagnoses Not on filedocumented in this encounter Additional Health Concerns Assessment Noted Time PHQ-9 Depression Total Score: 12 023 2:07 PM EDT documented as of this encounter Care Teams Nuclear Physicist Relationship Specialty Start Date End Date Amanda Beckford ANP 230 [place] [address] PCP - General Family Medicine 07/12/20 documented as of this encounter
--- OUTSIDE RECORDS SUMMARY | 2024-08-11 13:45 | XMS_ITS | Encounter Summary ---
Author Organization [employer] Address [address] [facility] [address] 7t [place] [address] Care Team Providers Care School Health Assistant Name Role Phone Analy Amanda ALANIS Primary Care Provider [phone] Encounter Details Date Type Department Care Team (Latest Contact Info) Description 07/28/2024 Travel Social History Tobacco Use Types Packs/Day [...] Description 09/08/2024 1:00 PM EDT Office Visit [facility] MEDICINE 230 [place] [address] Amanda Beckford ANP [address] [place] [address] documented as of this encounter Visit Diagnoses Not on filedocumented in this encounter Additional Health Concerns Assessment Noted Time PHQ-9 Depression Total Score: 21 024 2:26 PM EDT documented as of this encounter Care Teams School Health Assistant Relationship Specialty Start Date End Date Amanda Beckford ANP [address] [place] [address] PCP - General Family Medicine 07/12/20 documented as of this encounter
--- OUTSIDE RECORDS SUMMARY | 2024-08-11 13:45 | XMS_ITS | Encounter Summary ---
Author Organization [employer] Address [address] [facility] [address] 7t [place] [address] Care Team Providers Care Intermediate Designer Name Role Phone Amanda Beckford Primary Care Provider [phone] Reason for Visit * Reason Comments Med Refill Encounter Details Date Type Department Care Team ([facility] st Contact Info) Description 08/03/2024 Refill [facility] MEDICINE 230 [place], [place] [phone] Amanda Beckford ANP 230 [place], [place] [phone] Undifferentiated connective tissue disease (CMS/HCC) Social History [...] 1:00 PM EDT Office Visit [facility] MEDICINE [address] [place] [address] Amanda Beckford ANP [address] [place] [address] documented as of this encounter Visit Diagnoses Diagnosis Undifferentiated connective tissue disease (CMS/HCC) Unspecified diffuse connective tissue disease documented in this encounter Additional Health Concerns Assessment Noted Time PHQ-9 Depression Total Score: 21 024 2:26 PM EDT documented as of this encounter Care Teams Intermediate Designer Relationship Specialty Start Date End Date Amanda Beckford ANP [address] [place] [address] PCP - General Family Medicine 07/12/20 documented as of this encounter
--- OUTSIDE RECORDS SUMMARY | 2024-08-11 13:45 | XMS_ITS | Encounter Summary ---
Author Organization [employer] Address [address] [facility] [address] 7t [place] [address] Care Team Providers Care Mechatronics Technologist Name Role Phone Analy Amanda ALANIS Primary Care Provider [phone] Reason for Visit * Reason Comments Med Refill Encounter Details Date Type Department Care Team (Late st Contact Info) Description 07/19/2023 Refill [facility] [address] [facility] [place], [place] [phone] Lis Cortez FNP Chronic pain syndrome Social [...] Description 09/08/2024 1:00 PM EDT Office Visit [facility] MEDICINE 230 [place] [address] Aamnda Beckford ANP 230 [place] [address] documented as of this encounter Visit Diagnoses Diagnosis Chronic pain syndrome documented in this encounter Additional Health Concerns Assessment Noted Time PHQ-9 Depression Total Score: 12 023 2:07 PM EDT documented as of this encounter Care Teams Mechatronics Technologist Relationship Specialty Start Date End Date Amanda Beckford ANP [address] [place] [address] PCP - General Family Medicine 07/12/20 documented as of this encounter
--- OUTSIDE RECORDS SUMMARY | 2024-08-11 13:45 | XMS_ITS | Encounter Summary ---
Author Organization [employer] Address [address] [facility] 7t [place] [address] Care Team Providers Care Recep Name Role Phone Amanda Beckford Primary Care Provider [phone] Reason for Visit * Reason Comments Med Refill Encounter Details Date Type Department Care Team (Late st Contact Info) Description 06/18/2022 Refill [facility] MEDICINE 230 [place] [address] Amanda Beckford ANP 230 [place] [address] Chronic pain syndrome (Primary Dx); Primary hypertension; [...] Upcoming Encounters Date Type Department Care Team ([facility] st Contact Info) Description 09/08/2024 1:00 PM EDT Office Visit [facility] MEDICINE [address] [place], [place] [phone] Amanda Beckford ANP [address] [place] [address] documented as of this encounter Visit Diagnoses Diagnosis Chronic pain syndrome- Primary Primary hypertension Unspecified essential hypertension Mood disorder (CMS/HCC) Unspecified episodic mood disorder Undifferentiated connective tissue disease (CMS/HCC) Unspecified diffuse connective tissue disease Menopause Symptomatic menopausal or female climacteric states documented in this encounter Care Teams Recep Relationship Specialty Start Date End Date Amanda Beckford ANP [address] [place] [address] PCP - General Family Medicine 07/12/20 documented as of this encounter
--- OUTSIDE RECORDS SUMMARY | 2024-08-11 13:46 | XMS_ITS | Encounter Summary ---
Author Organization [employer] Address [address] [facility] [address] 7t [place] [address] Care Team Providers Care Perfume Maker Name Role Phone Amanda Beckford Primary Care Provider [phone] Encounter Details Date Type Department Care Team (Late st Contact Info) Description 07/13/2024 2:00 PM EST Office Visit [facility] MEDICINE 230 [place], [place] [phone] Amanda Beckford ANP 230 [place], [place] [phone] Mixed anxiety and depressive disorder (Primary Dx); [...] for follow-up weight and hypertension. Specialists include: [facility] cardiology - she is overdue for follow-up visit HPI Here today for follow-up hypertension. Brought back for nurse triage because approached front desk person reporting chest pain and crying. Upon discussion [...] his heart is not pumping correctly. Her SUPERINTENDENT FACTORY is her brothers daughter and so this [...] has not had a worsening of depression. Estonian interpretation by Josie June, medical affairs leader. Got holter 11/2023 as below: Ordering Physician: [...] 44.9 in adult,unspecified obesity type (CMS/[facility]) Wegovy was declined to continue by insurance. [...] Description 09/08/2024 1:00 PM EDT Office Visit [facility] MEDICINE [address] [place] [address] Amanda Beckford ANP [address] [place] [address] documented as of this encounter Procedures Procedure Name Priority Date/Time Associated Diagnosis Comments ECG 12-LEAD Routine 07/13/2024 4:39 PM EST Primary hypertension documented in this encounter Results * ECG 12 lead (07/13/2024 4:39 PM EST) Narrative Amanda Beckford ANP - 07/13/2024 4:39 PM EST HR 95 (98 on 2nd tracing) Appears stable versus EKG above from cards us Amanda Beckford ANP ECG ORDERABLES Final Result documented in this encounter Visit Diagnoses Diagnosis Mixed anxiety and depressive disorder- Primary Dysthymic disorder Class 3 severe obesity with serious comorbidity and body mass index (BMI) of 40.0 to 44.9 in adult, unspecified obesity type (CMS/HCC) Primary hypertension Unspecified essential hypertension documented in this encounter Additional Health Concerns Assessment Noted Time PHQ-9 Depression Total Score: 024 2:26 PM EDT documented as of this encounter Care Teams Perfume Maker Relationship Specialty Start Date End Date Amanda Beckford ANP [address] [place] [address] PCP - General Family Medicine 07/12/20 documented as of this encounter
--- OUTSIDE RECORDS SUMMARY | 2024-08-11 13:46 | XMS_ITS | Encounter Summary ---
Author Organization [employer] Address [address] [facility] [address] [place] [address] Care Team Providers Care Oyster Washer Name Role Phone Analy Amanda ALANIS Primary Care Provider [phone] Encounter Details Date Type Department Care Team (Late st Contact Info) Description 07/17/2024 Telephone [facility] [address] [facility] [place], [place] [phone] Nuris Crocker LPN Social History Tobacco Use [...] 1:00 PM EDT Office Visit [facility] 230 [place] [address] Amanda Beckford ANP 230 [place] [address] documented as of this encounter Visit Diagnoses Not on filedocumented in this encounter Additional Health Concerns Assessment Noted Time PHQ-9 Depression Total Score: 21 024 2:26 PM EDT documented as of this encounter Care Teams Oyster Washer Relationship Specialty Start Date End Date Amanda Beckford ANP [address] [place] [address] PCP - General Family Medicine 07/12/20 documented as of this encounter
--- OUTSIDE RECORDS SUMMARY | 2024-08-11 13:46 | XMS_ITS | Encounter Summary ---
Author Organization [employer] Address [address] [facility] [address] [facility] [address] 7[address] [place] [address] Care Team Providers Care Kiln Tester Name Role Phone Amanda Beckford Primary Care Provider [phone] Encounter Details Date Type Department Care Team (Late st Contact Info) Description 07/14/2024 Telephone [facility] 230 [place], [place] [phone] Amanda Beckford ANP 230 [place] [address] Social History Tobacco Use Types Packs/Day Years [...] 07/14/2024 9:38 AM EST TC placed to [facility] cardiovascular spoke to receptionist airline lounge Bree who reports she will reach out to the patient to book a f/u with the DIGITAL EDITOR as the provider isn't booking until September. Bree confirmed patients phone number and will reach out to her. * Telephone Encounter - Hipolito Quiñones RN - 07/14/2024 9:38 AM EST ----- Message from Amanda Beckford sent at 07/13/2024 4:46 PM EST ----- Please call [facility] cardiology to request that they out reach patient for follow-up visit with Dr. Cain for tachycardia and abnormal echo. Thank you documented in this encounter Plan of Treatment Upcoming Encounters Date Type Department Care Team (Late st Contact Info) Description 09/08/2024 1:00 PM EDT Office Visit [facility] 230 [place], [place] [phone] Amanda Beckford ANP 230 [place] [address] documented as of this encounter Visit Diagnoses Not on filedocumented in this encounter Additional Health Concerns Assessment Noted Time PHQ-9 Depression Total Score: 21 024 2:26 PM EDT documented as of this encounter Care Teams Kiln Tester Relationship Specialty Start Date End Date Amanda Beckford ANP 230 [place] [address] PCP - General Family Medicine 07/12/20 documented as of this encounter
--- OUTSIDE RECORDS SUMMARY | 2024-08-11 13:46 | XMS_ITS | Encounter Summary ---
Author Organization [employer] Address [address] [facility] [address] 7t [place] [address] Care Team Providers Care Film Developing Machine Operator Name Role Phone Analy Amanda ALANIS Primary Care Provider [phone] Reason for Visit * Reason Onset Date Comments Nurse Triage 07/13/2024 Encounter Details Date Type Department Care Team (Late st Contact Info) Description 07/13/2024 Telephone [facility] [address] [facility] [place], [place] [phone] Maryann Estrada, RN Nurse Triage Social History [...] office visit and nurses approached by front office supervisor staff because pt complaining of heart issue, maybe chest issue , said pt was crying. Nurses went to triage pt (translation by Kristina [facility] and Octavia [facility] business professor) who stated that since last , brother [...] Description 09/08/2024 1:00 PM EDT Office Visit [facility] [address] [place] [address] Amanda Beckford ANP [address] [place] [address] documented as of this encounter Visit Diagnoses Not on filedocumented in this encounter Additional Health Concerns Assessment Noted Time PHQ-9 Depression Total Score: 21 024 2:26 PM EDT documented as of this encounter Care Teams Film Developing Machine Operator Relationship Specialty Start Date End Date Amanda Beckford ANP [address] [place] [phone] PCP - General Family Medicine 07/12/20 documented as of this encounter
--- OUTSIDE RECORDS SUMMARY | 2024-08-11 13:46 | XMS_ITS | Encounter Summary ---
Author Organization [employer] Address [address] [facility] [address] 7t [place] [address] Care Team Providers Care Corporate Giving Manager Name Role Phone Amanda Beckford Primary Care Provider [phone] Reason for Visit * Reason Onset Date Comments Appointment Request 10/13/2023 Encounter Details Date Type Department Care Team ([facility] st Contact Info) Description 10/13/2023 Telephone [facility] 230 [place], [place] [phone] Amanda Beckford ANP 230 [place] [address] Appointment Request Social History Tobacco Use Types [...] 1:00 PM EDT Office Visit [facility] 230 [place] [address] Amanda Beckford ANP 230 [place] [address] documented as of this encounter Visit Diagnoses Not on filedocumented in this encounter Additional Health Concerns Assessment Noted Time PHQ-9 Depression Total Score: 12 023 2:07 PM EDT documented as of this encounter Care Teams Corporate Giving Manager Relationship Specialty Start Date End Date Amanda Beckford ANP [address] [place] [address] PCP - General Family Medicine 07/12/20 documented as of this encounter
--- OUTSIDE RECORDS SUMMARY | 2024-08-11 13:46 | XMS_ITS | Encounter Summary ---
Author Organization [employer] Address [address] [facility] [address] 7t [place] [address] Care Team Providers Care Oracle Analyst Name Role Phone Analy Amanda ALANIS Primary Care Provider [phone] Encounter Details Date Type Department Care Team [...] Description 09/08/2024 1:00 PM EDT Office Visit [facility] MED[facility]INE 230 [place] [address] Amanda Beckford ANP 230 [place] [address] documented as of this encounter Visit Diagnoses Not on filedocumented in this encounter Additional Health Concerns Assessment Noted Time PHQ-9 Depression Total Score: 21 024 2:26 PM EDT documented as of this encounter Care Teams Oracle Analyst Relationship Specialty Start Date End Date Amanda Bekcford ANP 230 [place] [address] PCP - General Family Medicine 07/12/20 documented as of this encounter
--- OUTSIDE RECORDS SUMMARY | 2024-08-11 13:46 | XMS_ITS | Clinical Summary ---
Author Organization [employer] Address [address] [facility] [address] [place] [address] Care Team Providers Care Cotton Wringer Name Role Phone Analy Chris ALANIS Primary Care Provider [phone] Allergies No known active allergies Medications * [...] twice weekly 24 patch 03/22/20 24 Active lisinopril 40 MG tabletIndicatio ns:Primary [...] per week. 2 mL 07/13/19 25 Active celecoxib (CeleBREX) 200 MG capsuleIndicati ons:Undifferent iated connective tissue disease (CMS/HCC) TAKE 1 CAPSULE BY MOUTH EVERY DAY 30 capsule 2 08/03/19 25 Active celecoxib (CeleBREX) 200 MG capsuleIndicati ons:Undifferent iated connective tissue disease (CMS/HCC) TAKE 1 CAPSULE BY MOUTH EVERY DAY 30 capsule 2 04/06/20 24 025 Discontinued Semaglutide-Inocente ght Management (Wegovy) [...] Encounters Date Type Department Care Team Description 08/03/2024 Refill [facility] 230 [place] [address] Chris Gonzales ANP Undifferentiated connective tissue disease (CMS/HCC) 07/28/2024 1:00 PM EST Clinical Support [facility] 230 [place] [address] Bree Holman RN Primary hypertension 07/28/2024 Travel 07/24/2024 9:30 AM EST Office Visit [facility] [address] [place] [address] Sarthak, Ella, OD Myopia of both eyes (Primary Dx) 07/18/2024 Telephone [facility] [address] [place] [address] Maryann Estrada, RN Appointment Request 07/17/2024 Telephone [facility] 230 [place] [address] Nuris Crocker LPN 07/14/2024 Telephone [facility] 230 [place] [address] Chris Gonzales ANP 07/13/2024 2:00 PM EST Office Visit [facility] [address] [place] [address] Chris Gonzales ANP Mixed anxiety and depressive disorder (Primary Dx); Class 3 severe obesity with serious comorbidity and body mass index (BMI) of 40.0 to 44.9 in adult, unspecified obesity type ([facility]); Primary hypertension 07/13/[address] [address] Maryann Estrada, ROLANDO Nurse Triage 07/13/2024 Travel 07/04/2024 Patient Outreach [address] [address] Chris Gonzales ANP Pre-visit Planning (SDOH Screening negative and Tobacco screening negative) 07/02/2024 Refill [facility] [address] [place] [address] Chris Gonzales ANP Polyarthralgia 07/02/[address] [address] Zia Bower MD Chronic pain syndrome; Mood disorder ([facility]); Polyarthralgia 06/23/[address] [address] Chris Gonzales ANP No Show 06/13/2024 Patient Outreach [address] [address] Chris Gonzales ANP Pre-visit Planning (Pre-visit planning - LVM ) 06/02/[address] [address] Jeaneth [place] DME from [employer] 05/31/[address] [address] Lyndsay Rodgers RNstock sheets cleaner inspector (Wegovy 2.4mg) 05/30/2024 Refill [facility] [address] [place], [place] [phone] Chris Gonzales ANP from Last 3 Months Immunizations Name Administration [...] Pulse 92 07/28/2024 1:22 PM EST Temperature 37.1 ??C (98.8 ??F) 07/13/2024 1:55 PM ES T Respiratory Rate 18 07/28/2024 1:22 PM EST [...] Description 09/08/2024 1:00 PM EDT Office Visit [facility] 230 [place], [place] [phone] Chris Gonzales, ANP 230 [place], [place] [phone] Health Maintenance Due Date Last Done Comments [...] Pap Smear 09/14/2021 09/14/2018 COVID-19 Vaccine ( season) 2024 07/23/2021, 12/02/2020, 10/29/2020 Mammogram 03/18/2024 [...] topic Meningococcal Vaccine Aged Out No lisa diixe eligible based on patient's age to complete this topic RSV under 20 months Aged Out No longe r eligible based on patient's age to complete this topic Rotavirus Vaccines Aged Out No longer eligible based on patient's age to complete this topic Procedures Procedure Name Priority Date/Time Associated Diagnosis Comments ECG 12-LEAD Routine 07/13/2024 4:39 PM EST Primary hypertension HIV 1/2 ANTIGEN/ANTIBODY, FOURTH GENERATION W/RFL Routine [...] Appears stable versus EKG above from cards Chris Gonzales ANP ECG ORDERABLES Final Result * HIV-1/2 Antigen and Antibodies, Fourth Generation, with Reflexes (05/18/2023 12:59 PM EST) HIV AB/AG Nonreactive Nonreactive [facility] Comment:HIV-1 p24 Ag and/or HIV-1/HIV-2 Ab not detected.A test result that is nonreactive does not exclude thepossibility of exposure to or infection with HIV-1 and/orHIV-2. Nonreactive results in this assay for individualswith prior exposure to HIV-1 and/or HIV-2 may be due toantigen and antibody levels that are below the limit ofdetection of this assay.[employer] HIV Ag/Ab Combo assay result andsupplemental assay results should be interpreted inconjunction with the patient's clinical presentation,history and other laboratory results. If the results areinconsistent with clinical evidence, additional testing issuggested to confirm the result. Blood Venous blood specimen / Unknown 05/18/2023 12:59 PM EST 05/18/2023 3:47 PM EST Chris Gonzales ANP LAB BLOOD ORDERABLES Final Resul t [facility] [address] [place] [address] [phone] * (ABNORMAL) Lipid Panel, Standard (05/18/2023 12:59 PM EST) Triglycerides 175(H) <150 mg/dL [facility] Comment:Desirable Triglyceri de: less than 150 mg/dLBorderline High Triglyceride 150-199 mg/dLHigh Triglyceride: 200-499 mg/dLVery High Triglyceride: greater than or equal to 5OO mg/dL Cholesterol 233(H) <200 mg/dL [facility] Comment:Desirable Cholestero l: less than 200 mg/dLBorderline High Cholesterol: 200-239 mg/dLHigh Cholesterol: greater than 239 mg/dL LDL Cholesterol Calculated 144(H) <100 mg/dL [facility] Comment:Desirable LDL: less than 100 mg/dLNear Optimal/Above Optimal LDL: 110- 129 mg/dLBorderline High LDL: 130-159 mg/dLHigh LDL: 160-189 mg/dLVery High LDL: greater than or equal to 190 mg/dL HDL Cholesterol 54 >40 mg/dL [facility] Comment:Desirable HDL: great er than 40 mg/dL Note: This HDL assay may give artificially low results in patients with liver disease. Blood Venous blood specimen / Unknown 05/18/2023 12:59 PM EST 05/18/2023 3:47 PM EST Chris Gonzales [facility] BLOOD ORDERABLES Final Resul t [facility] [address] [place] [address] [phone] * BI Mammogram Screening Tomosynthesis Bilateral (03/18/2023 1:11 PM EDT) Anatomical Region Laterality Modality Breast Bilateral Mammography 03/18/2023 1:11 PM EDT Narrative 04/07/2023 9:22 PM EDT ? [facility] ? [address] [facility] ?[place] [address] ? Mammography Report ? Signed ? Patient: Colon,Sonia ?MR#: [id number] ? : 1970 ?Acct:[id number] ? Age/Sex: 52 / F ?ADM Date: 09/28/23 ? Loc: HO.MAMMO ? Attending Dr: Chris Gonzales DEHYDROGENATION CONVERTER HELPER ? Ordering Physician: CHRIS GONZALES NP ?Results: 1Negative ? Date of Service: 03/18/23 ?Follow Up: 1 Year From Orig ?? inal Mammogram ? Procedure(s): MM tomosynthesis screening BI ?? Accession Number(s): [id number] ? cc: CHRIS GONZALES NP ? EXAMINATION: ?? MM SCREENING DIGITAL BREAST TOMOSYNTHESIS, BILATERAL ? CLINICAL INFORMATION: ? Screening. Asymptomatic. ? COMPARISON: ?? Mammography: This study is compared with prior exams dating back to ?? 2016. ? TECHNIQUE: ?? Digital breast tomosynthesis is [...] [place] MD in OV> ? 04/07/232117 ? DD/DT: 03/18/ 1311 ? TD/TT: ? Teen Counselor: ? Procedure Note Donotuseinterpreter, Image - 04/07/2023 [facility] [address] [place] [address] Mammography Report Signed Patient: Leslie Camilo#: [id number] : 1970Acct:[id number] Age/Sex: 52 / FADM Date: 03/18/23 Loc: HO.MAMMO Attending Dr: Chris Gonzales DEHYDROGENATION CONVERTER HELPER Ordering Physician: CHRIS GONZALES NPResults: 1Negative Date of Service: 03/18/23Follow Up: 1 Year From Orig inal Mammogram Procedure(s): MM tomosynthesis screening BI Accession Number(s): [id number] cc: CHRIS GONZALES NP EXAMINATION: MM SCREENING [...] MD in OV> 04/07/232117 DD/ 1311 TD/TT: Teen Counselor: Chris Gonzales ANP IMG BI PROCEDURES Edited Result - Final * Hm Colonoscopy (11/16/2018) Colonoscopy Normal Normal 11/16/2018 Narrative Love Morton - 11/16/2018 10:54 AM EDT Recommended 5 year follow up ( [facility] [place] Historical Provider MD HEALTH MAINTENANCE Final Result * HPV mRNA E6/E7 (09/14/2018 2:07 PM EDT) HPV mRNA E6/E7 Not Detected NOT DETECTED [facility] Comment: This test was performed using the APTIMA(R) HPV Assay ([employer] This assay detects E6/E7 viral messenger RNA (mRNA) from 14 high-risk HPV types (16,18,31,33,35,39,45,51, 52,56,58,59,66,68). For additional information please refer to: http://education.Lumiant/faq/HBL136f8 (This link is being provided for informational/ educational purposes only.) The analytical performance characteristics of this assay have been determined by [employer], [place]. The modifications have not been cleared or approved by the FDA. This assay has been validated pursuant to the CLIA regulations and is used for clinical purposes. [facility] by [facility], [facility], [address] [place] [address] Samy Agosto M.D., Ph.D., Director of Laboratories , CLIA [id number] Please note: ??Effective 03/02/2016, HPV testing will be performed using [employer]'s APTIMA test which targets mRNA. Detecting mRNA instead of DNA, as in older methods, offers significant improvements in specificity. 09/14/2018 2:07 PM EDT Amalia Tavarez CNM HISTORICAL/NON ORDERABLE LABS Final Result [facility] [address] * Hm Pap Smear (09/14/2018 12:00 AM EDT) us Historical Provider HEALTH MAINTENANCE Final Result from Last 3 Months or Most Recently Relevant to Health Maintenance Insurance * Guarantor: Sonia Camilo Account Type Relation to Patient Date of Phone Billing Address Personal/Family Self [address] Care Teams Cotton Wringer Relationship Specialty Start Date End Date Chris Goznales ANP [address] [place] [phone] PCP - General Family Medicine 07/12/20
--- OUTSIDE RECORDS SUMMARY | 2024-08-11 13:46 | XMS_ITS | Encounter Summary ---
Author Organization [employer] Address [address] [facility] [address] [address] 7[address] [place] [address] Care Team Providers Care Supervisor Machine Workers Name Role Phone Analy Amanda ALANIS Primary Care Provider [phone] Reason for Visit * Reason Onset Date Comments Appointment Request 07/18/2024 Encounter Details Date Type Department Care Team (Late st Contact Info) Description 07/18/2024 Telephone [facility] [address] [facility] [place], [place] [phone] Maryann Estrada, ROLANDO Appointment Request Social History [...] EST Called pt, spoke with pt and PRODUCTION MACHINE OPERATOR. Pt gave verbal consent to speak with PRODUCTION MACHINE OPERATOR. Advised pt that no recent weight on [...] Description 09/08/2024 1:00 PM EDT Office Visit [facility] [address] [place], [place] [phone] Amanda Beckford ANP 230 [place], [place] [phone] documented as of this encounter Visit Diagnoses Not on filedocumented in this encounter Additional Health Concerns Assessment Noted Time PHQ-9 Depression Total Score: 21 024 2:26 PM EDT documented as of this encounter Care Teams Supervisor Machine Workers Relationship Specialty Start Date End Date Amanda Beckford ANP 230 [place] [address] PCP - General Family Medicine 07/12/20 documented as of this encounter
[2024-08-11 14:54] LABS: Anion Gap 11 (12-20); Blood Urea Nitrogen 17 mg/dL (9-16); Calcium 9.6 mg/dL (8.4-10.2); Carbon Dioxide 28 mmol/L (22-29); Chloride 105 mmol/L (96-108); Estimated Glomerular Filt Rate 52; Glucose Random 140 mg/dL (60-115); Magnesium 2.1 mg/dL (1.6-2.6); Potassium 3.5 mmol/L (3.3-5.1); Sodium 140 mmol/L (135-145)
[2024-08-11 15:09] LABS: TSH reflex Free T4 1.61 uIU/mL (0.32-4.0)
== END 2024-08-11 13:19 | disposition home or self-care (01) ==
LOC: HO.LAB 13:18
PROVIDERS: PCP Nurse Practitioner Primary Care; Visit Provider Nurse Practitioner Family
DX: R00.2 Palpitations (principal); I47.29 Other ventricular tachycardia
CPT/HCPCS: 36415; 80048; 83735; 84443

== ENCOUNTER 2024-08-28 12:52 | Outpatient (AMB) | payer MEDICAID, SELFPAY ==
--- NOTE | 2024-08-28 13:11 | A.OFFVIS_ITS ---
Intake Visit Reasons: Kidney Stones Intake Note: New Patient presents for initial visit for kidney stones Urology Medications: none Blood Thinner: none Branch Or Department Chief Librarian Required: Yes Branch Or Department Chief Librarian Name: [id number] Accompanied by: Self / Same As Patient Allergies hydroxychloroquine Allergy (Verified 08/28/24 13:40) Unknown Medication List - Last Reconciled 08/28/24 by LENI Mcmillan- amlodipine 10 mg PO DAILY celecoxib 200 mg PO DAILY duloxetine 60 mg PO QAM estradiol 1 patch transdermal 2XW famotidine (Pepcid) 20 mg PO BEDTIME gabapentin 300 mg PO BID hydrochlorothiazide 25 mg PO DAILY hydroxychloroquine (Plaquenil) 200 mg PO BID lisinopril 20 mg PO DAILY metoprolol succinate ER 25 mg PO DAILY pantoprazole 40 mg PO DAILY quetiapine 300 mg PO BEDTIME HPI Comments Details: Sonia is a very pleasant 54-year-old Bengali-speaking female patient of Dr. Gonzales. She has a past medical history of lupus, arthritis, anemia, anxiety, depression, and hypertension. She presents to the office today as a new patient for nephrolithiasis. In discussion with the patient today she reports having seeked emergency room care late last year for right-sided flank pain she had been experiencing at which time a CT of the abdomen was ordered and performed. These results were reviewed with the patient today. 05/14 the kidneys are normal in size, shape, and attenuation. Previously seen obstructing stone in the left proximal ureter with associated with hydro is no longer present. There is a nonobstructing 2 mm calculus in the left kidney. She reports pain she had been experiencing has since subsided. She does report a previous history of nephrolithiasis in the past however never requiring surgical intervention. Unable to obtain urine for urinalysis today. We discussed at length potential causes of nephrolithiasis as well as metabolic workup. She currently denies any bothersome urinary issues. She denies urinary urgency, urinary frequency, incontinence, nocturia, hematuria, dysuria, foul smelling urine, changes to urinary stream, flank pain, fever, and or chills. She is happy with her current voiding parameters. She otherwise offers no other issues or concerns at this time. [facility] Medical History Lupus Arthritis Anemia History of anxiety Depression Personal history of tuberculosis HTN (hypertension) Surgical History Hx of total hysterectomy with removal of both tubes and ovaries Hx of dilation and curettage History of esophagogastroduodenoscopy (EGD) H/O colonoscopy Hx of knee surgery Hx of lithotripsy Hx of appendectomy Social History Alcohol intake: never Years Smoked: 36 Substance Use Type: Marijuana Review of Systems Const All systems reviewed & are unremarkable except as noted in HPI and below Physical Exam Const General: cooperative, healthy appearing, comfortable, no acute distress, well developed, alert and awake Nutritional Appearance: overweight Orientation/consciousness: patient oriented x3 Limitations: no limitations HEENT Head: Yes normal to inspection, Yes normocephalic and Yes atraumatic Ears: hearing grossly normal bilaterally Eyes General: appearance normal, both eyes and all related structures Neck Neck: Yes normal visual inspection and Yes trachea midline Chest Chest palpation & inspection: normal inspection of the chest Resp Effort & Inspection: normal respiratory effort and able to speak in complete sentences Cardio Rate: regular rate GI Inspection: Yes normal to inspection General: Yes no CVA tenderness Back/Spine/Pelvis Back: no CVA tenderness Skin General skin exam: no rashes or lesions noted Neuro General: patient oriented x3 Extrem General: Yes normal to inspection Psych Appearance: grossly normal and well kempt Mental Status: mental status grossly normal Speech and movement: Normal speech and movement present and Clear speech present Affect: normal affect Attitude: cooperative Thought process: Normal thought process present Thought content: Normal thought content present Insight: Fair insight present (Psych) Judgement: Fair judgement present (Psych) Results Reviewed Results Reviewed: Ordering Physician: Ricco Ramos Date of Service: 05/03/24 Procedure(s): CT abdomen pelvis wo IV con Accession Number(s): [id number] cc: Ricco Ramos; CHRIS GONZALES NP~ EXAMINATION: CT ABDOMEN AND PELVIS WITHOUT CONTRAST CLINICAL INFORMATION: Right-sided flank pain COMPARISON: CT abdomen pelvis 11/05/2021 TECHNIQUE: Multidetector volumetric imaging was performed from the superior aspect of the liver through the pubic symphysis. Sagittal and coronal reformatted images were obtained on the technologist's workstation. This CT examination was performed using dose optimization techniques as appropriate, variously including the following: *Automated exposure control *Adjustment of mA and/or kV according to patient size (this includes techniques or standardized protocols for targeted exams where dose is matched to indication/reason for exam; i.e. extremities or head) *Use of iterative reconstruction technique DLP: 910 mGy-cm FINDINGS: LUNG BASES: The visualized lung bases are unremarkable. LIVER, GALLBLADDER, AND BILIARY TREE: The liver is mildly enlarged measuring almost 18 cm in greatest length. Attenuation and shape is normal. No focal hepatic lesion or biliary ductal dilatation is present. The gallbladder is unremarkable with no evidence of radiopaque gallstones, gallbladder wall thickening, or obvious pericholecystic inflammatory changes. PANCREAS: Unremarkable. SPLEEN: Unremarkable. ADRENAL GLANDS: Unremarkable. KIDNEYS AND URETERS: The kidneys are normal in size, shape, and attenuation. Previously seen obstructing stone in the left proximal ureter with associated hydronephrosis is no longer present. There is a nonobstructing 2 mm calculus in the left mid kidney. There is nonspecific stranding seen around both kidneys with some small amount of fluid in the anterior pararenal space on the right which is around the right ureter. There is mild right-sided pelvocaliectasis. There is a punctate less than 2 mm sized calcification seen overlying the course of the mid to distal right ureter (4:506) which was not seen at the time of the prior study. This likely represents an obstructing calculus There is some mild thickening of the uroepithelium bilaterally. BLADDER: Unremarkable. GASTROINTESTINAL TRACT: The small and large bowel are unremarkable aside from a few scattered colonic diverticula without diverticulitis. The appendix is not seen with certainty.. ABDOMINAL WALL: Tiny periumbilical hernia seen containing only fat. Again seen is a lipoma in the right lateral abdominal wall musculature LYMPH NODES: No retroperitoneal lymphadenopathy. VASCULAR: Unremarkable. PELVIC VISCERA: The uterus is not seen. An abnormal adnexal mass is not detected. No free intraperitoneal fluid is present. OSSEOUS STRUCTURES: Unremarkable. CT/CT abdomen pelvis wo IV con IMPRESSION: 1. There is a punctate less than 2 mm sized calcification seen overlying the course of the mid to distal right ureter which was not seen at the time of the prior study. This likely represents an obstructing calculus. 2. There is nonspecific stranding seen around both kidneys with some small amount of fluid in the anterior pararenal space on the right which is around the right ureter. There is some mild thickening of the uroepithelium bilaterally. 3. Other incidental findings as described above. Assessment & Plan Assessment & Plan (1) Nephrolithiasis: Code(s): N20.0 - Calculus of kidney Category: Medical Plan Unable to obtain urine for urinalysis today. Recent CT results reviewed with the patient today; as noted above. We discussed potential causes of nephrolithiasis. We discussed and stressed the importance of adequate hydration relation to nephrolithiasis as well as overall health and well-being. Will obtain renal ultrasound. She currently denies any bothersome urinary issues. She reports be happy with current voiding parameters. We discussed metabolic workup to include labs as well as [facility]. Follow-up in 3 months with imaging to be completed prior; or sooner with any issues, concerns, and or questions. Orders: Orders AMB Urinalysis Automated Today Z13.9 - Encounter for screening, unspecified US renal BI 2 Months N20.0 - Calculus of kidney Patient Instructions: The patient had an opportunity to ask questions regarding the treatment plan. All questions were answered. Physical exam, labs, and imaging were discussed and reviewed in detail. As well as risks, benefits, and discussion of treatment choices. No major barriers to understanding were identified. The patient expressed understanding and agreement with the above treatment plan. The patient was made aware they should contact our office by phone for worsening of their current condition, the appearance of new symptoms, or with any questions or concerns. Compliance is encouraged with any medications and follow up testing that is ordered. It is a privilege to be allowed the opportunity to participate in? your urological care.? Again, if you have any questions or concerns If you have any questions or concerns please do not hesitate to contact me. The office is [phone]. This note is constructed using voice recognition software. While every effort has been made to ensure accuracy evp sales errors may have been included. Yours sincerely, SANJEEV McmillanP-BC Coding Level of Care Code New Pt Level 3 (58038) Diagnoses Nephrolithiasis N20.0
--- OUTSIDE RECORDS SUMMARY | 2024-08-28 14:23 | XMS_ITS | Encounter Summary ---
Author Organization [employer] Address [address] [place] [address] Care Team Providers Care Building Certifier Name Role Phone Amanda Beckford Primary Care Provider [phone] Reason for Visit * Reason Comments Med Refill Encounter Details Date Type Department Care Team ([facility] st Contact Info) Description 08/03/2024 Refill [facility] [address] [place], [place] [phone] Amanda Beckford ANP [address] [place], [place] [phone] Undifferentiated connective tissue disease (CMS/HCC) Social History [...] Care Team (Late st Contact Info) Description 08/31/2024 2:15 PM EDT Office Visit [facility] [address] [place] [phone] Amanda Beckford ANP [address] [place] [address] documented as of this encounter Visit Diagnoses Diagnosis Undifferentiated connective tissue disease (CMS/HCC) Unspecified diffuse connective tissue disease documented in this encounter Additional Health Concerns Assessment Noted Time PHQ-9 Depression Total Score: 21 024 2:26 PM EDT documented as of this encounter Care Teams Building Certifier Relationship Specialty Start Date End Date Amanda Beckford ANP [address] [place] [address] PCP - General Family Medicine 07/12/20 documented as of this encounter
--- OUTSIDE RECORDS SUMMARY | 2024-08-28 14:23 | XMS_ITS | Encounter Summary ---
Author Organization [employer] Address [address] [place] [address] Care Team Providers Care Burlap Man Name Role Phone Amanda Beckford Primary Care Provider [phone] Reason for Visit * Reason Onset Date Comments Med Refill 07/19/2023 Encounter Details Date Type Department Care Team (Late st Contact Info) Description 07/19/[address] [facility] [address] [place], [place] [phone] Amanda Beckford ANP [address] [place], [place] [phone] Med Refill Social History Tobacco Use Types [...] 200 MG tablet To be sent to: [facility] - [place], [place] - [address] [facility] documented in this encounter Plan of Treatment Upcoming Encounters Date Type Department Care Team (Late st Contact Info) Description 08/31/2024 2:15 PM EDT Office Visit [facility] [address] [place] [address] Amanda Beckford ANP [address] [place] [address] documented as of this encounter Visit Diagnoses Not on filedocumented in this encounter Additional Health Concerns Assessment Noted Time PHQ-9 Depression Total Score: 12 023 2:07 PM EDT documented as of this encounter Care Teams Burlap Man Relationship Specialty Start Date End Date Amanda Beckford ANP 230 [place] [address] PCP - General Family Medicine 07/12/20 documented as of this encounter
--- OUTSIDE RECORDS SUMMARY | 2024-08-28 14:23 | XMS_ITS | Encounter Summary ---
Author Organization [employer] Address [address] [place] [address] Care Team Providers Care Senior Bookkeeper Name Role Phone Analy Amanda ALANIS Primary Care Provider [phone] Reason for Visit * Reason Comments Med Refill Encounter Details Date Type Department Care Team (Late st Contact Info) Description 07/19/2023 Refill [facility] [address] [facility] [place], [place] [phone] Lis Cortez FNP Chronic pain syndrome Social [...] Description 08/31/2024 2:15 PM EDT Office Visit [facility] [address] [place] [address] Amanda Beckford ANP [address] [place] [address] documented as of this encounter Visit Diagnoses Diagnosis Chronic pain syndrome documented in this encounter Additional Health Concerns Assessment Noted Time PHQ-9 Depression Total Score: 12 023 2:07 PM EDT documented as of this encounter Care Teams Senior Bookkeeper Relationship Specialty Start Date End Date Amanda Beckford ANP [address] [place] [address] PCP - General Family Medicine 07/12/20 documented as of this encounter
--- OUTSIDE RECORDS SUMMARY | 2024-08-28 14:23 | XMS_ITS | Encounter Summary ---
Author Organization [employer] Address [address] [facility] [address]t [place] [address] Care Team Providers Care Foot And Ankle Surgeon Name Role Phone Amanda Beckford Primary Care Provider Reason for Visit * Reason Onset Date Comments order 08/22/2024 Encounter Details Date Type Department Care Team ([facility] st Contact Info) Description 08/22/2024 Telephone [facility] [address] [place], [place] [phone] Amanda Beckford ANP [address] [place] [address] order Social History Tobacco Use Types Packs/Day Years [...] encounter Miscellaneous Notes * Telephone Encounter - Bree Holman RN - 08/23/2024 2:29 PM EST TC placed to pt to follow up and check on status after pt called in yesterday with complaint of pain in the legs and a good amount of swelling. Pt did endorse some notable pitting to the skin at thattime. Pt confirmed that she does still have the pain in the leg but does not have any SOB or chest pain. Pt was reminded of the advisement given yesterday to present to either the ED or WIC to rule out any potential fluid retention or another cause of the pain. Pt is aware of this advisement and was appreciative but opted to schedule sooner with PCP on 08/31/2024 for assessment in office. * Telephone Encounter - Hipolito Quiñones RN - 08/22/2024 4:16 PM EST Please status check patient. * Telephone Encounter - Hipolito Quiñones RN - 08/22/2024 4:04 PM EST TC placed to patient (with [facility] foot caster) in regards to below patient reports she would like to get knee injections as she got them about a year ago at [address]. Patient informed that it has been a while since she had imaging done and that we would have to see her for a visit to have notes addressing her knee pain in order to get some imaging done to refer her for the requested injections. Patient agrees with plan states pain has been worsening and is affecting her ability to complete daily tasks such as grocery shopping. Patient is in significant amount of pain. Patient states sheis also having swelling in her legs with pitting (finger print stays patient reported when pressed into leg) and patient has had recent weight gain. Patient denies shortness of breath. Patient advised that due to fluid retention in legs and the recent increase in leg pain and weight gain she shouldgo to the emergency room. Patient declines and states she will go to the walk in center tomorrow. RN advised that [facility] recommendation is that she be seen today in the ED. Patient reports she will cometo [facility] walk in. * Telephone Encounter - Ingrid Alvarez - 08/22/2024 1:36 PM EST Tc from pt requesting to inject the knees and a referral for MRI. [phone] [email or web address] documented in this encounter Plan of Treatment Upcoming Encounters Date Type Department Care Team (Late st Contact Info) Description 08/31/2024 2:15 PM EDT Office Visit [facility] [address] [place] [address] Amanda Beckford ANP [address] [place] [address] documented as of this encounter Visit Diagnoses Not on filedocumented in this encounter Additional Health Concerns Assessment Noted Time PHQ-9 Depression Total Score: 21 024 2:26 PM EDT documented as of this encounter Care Teams Foot And Ankle Surgeon Relationship Specialty Start Date End Date Amanda Beckford ANP [address] [place] [address] PCP - General Family Medicine 07/12/20 documented as of this encounter
--- OUTSIDE RECORDS SUMMARY | 2024-08-28 14:23 | XMS_ITS | Encounter Summary ---
Author Organization [employer] Address [address] [place] [address] Care Team Providers Care Licensing Officer Name Role Phone Analy Amanda ALANIS Primary Care Provider [phone] Reason for Visit * Reason Comments Med Refill Encounter Details Date Type Department Care Team (Late st Contact Info) Description 07/19/2023 Refill [facility] 230 [place], [place] [phone] Anna Marie Sapp MD [address] [place], [place] [phone] Undifferentiated connective tissue disease (CMS/HCC) Social History [...] Description 08/31/2024 2:15 PM EDT Office Visit [facility] [address] [place] [address] Amanda Beckford ANP [address] [place] [address] documented as of this encounter Visit Diagnoses Diagnosis Undifferentiated connective tissue disease (CMS/HCC) Unspecified diffuse connective tissue disease documented in this encounter Additional Health Concerns Assessment Noted Time PHQ-9 Depression Total Score: 12 023 2:07 PM EDT documented as of this encounter Care Teams Licensing Officer Relationship Specialty Start Date End Date Amanda Beckford ANP [address] [place] [address] PCP - General Family Medicine 07/12/20 documented as of this encounter
--- OUTSIDE RECORDS SUMMARY | 2024-08-28 14:23 | XMS_ITS | Encounter Summary ---
Author Organization [employer] Address [address] [place] [address] Care Team Providers Care Customs And Border Protection Officer Name Role Phone Analy Amanda ALANIS Primary Care Provider [phone] Reason for Visit * Reason Comments Med Refill Encounter Details Date Type Department Care Team (Late st Contact Info) Description 07/19/2023 Refill [facility] [address] [facility] [place], [place] [phone] Lis Cortez FNP Chronic pain syndrome Social [...] Description 08/31/2024 2:15 PM EDT Office Visit [facility] [address] [place] [address] Amanda Beckford ANP [address] [place] [address] documented as of this encounter Visit Diagnoses Diagnosis Chronic pain syndrome documented in this encounter Additional Health Concerns Assessment Noted Time PHQ-9 Depression Total Score: 12 023 2:07 PM EDT documented as of this encounter Care Teams Customs And Border Protection Officer Relationship Specialty Start Date End Date Amanda Beckford ANP [address] [place] [address] PCP - General Family Medicine 07/12/20 documented as of this encounter
--- OUTSIDE RECORDS SUMMARY | 2024-08-28 14:24 | XMS_ITS | Encounter Summary ---
Author Organization [employer] Address [address] [place] [address] Care Team Providers Care Inorganic Chemical Technician Name Role Phone Amanda Beckford Primary Care Provider [phone] Reason for Visit * Reason Comments RN BP CHECK Encounter Details Date Type Department Care Team (Latest Contact Info) Description 07/28/2024 1:00 PM EST Clinical Support [facility] [address] [place], [place] [phone] Bree Holman RN Primary hypertension Social History [...] t he electric, gas, oil or water [employer] threatened to shut off services in your [...] confirms that BP medications were taken today [id number] PM. Pt states that she takes her [...] EST TC placed to pt with a sock mender to confirm that current antihypertensive medication is [...] Description 08/31/2024 2:15 PM EDT Office Visit [facility] [address] [place] [address] Amanda Beckford ANP [address] [place] [address] documented as of this encounter Visit Diagnoses Diagnosis Primary hypertension Unspecified essential hypertension documented in this encounter Additional Health Concerns Assessment Noted Time PHQ-9 Depression Total Score: 21 024 2:26 PM EDT documented as of this encounter Care Teams Inorganic Chemical Technician Relationship Specialty Start Date End Date Amanda Beckford ANP [address] [place] [address] PCP - General Family Medicine 07/12/20 documented as of this encounter
--- OUTSIDE RECORDS SUMMARY | 2024-08-28 14:24 | XMS_ITS | Encounter Summary ---
Author Organization [employer] Address [address] [facility] [address] [place] [address] Care Team Providers Care Log Carrier Operator Name Role Phone Amanda Beckford Primary Care Provider [phone] Reason for Visit * Reason Comments Med Refill Encounter Details Date Type Department Care Team (Late st Contact Info) Description 06/18/2022 Refill [facility] [address] [place] [address] Amanda Beckford ANP [address] [place] [address] Chronic pain syndrome (Primary Dx); Primary hypertension; [...] Description 08/31/2024 2:15 PM EDT Office Visit [facility] [address] [place], [place] [phone] Amanda Beckford ANP 230 [place] [address] documented as of this encounter Visit Diagnoses Diagnosis Chronic pain syndrome- Primary Primary hypertension Unspecified essential hypertension Mood disorder (CMS/HCC) Unspecified episodic mood disorder Undifferentiated connective tissue disease (CMS/HCC) Unspecified diffuse connective tissue disease Menopause Symptomatic menopausal or female climacteric states documented in this encounter Care Teams Log Carrier Operator Relationship Specialty Start Date End Date Amanda Beckford ANP [address] [place] [address] PCP - General Family Medicine 07/12/20 documented as of this encounter
--- OUTSIDE RECORDS SUMMARY | 2024-08-28 14:24 | XMS_ITS | Encounter Summary ---
Author Organization [employer] Address 75 [facility] 7t [place] [address] Care Team Providers Care Operations Research Manager Name Role Phone Amanda Beckford Primary Care Provider [phone] Reason for Visit * Reason Onset Date Comments other 12/28/2022 Encounter Details Date Type Department Care Team (Late st Contact Info) Description 12/28/2022 Telephone [facility] [address] [place], [place] [phone] Amanda Beckford ANP [address] [place] [address] other Social History Tobacco Use Types Packs/Day [...] patient for appropriate needs/services. Asked about the PARAGLIDING INSTRUCTOR being in the home with patient for 36 hours, they would be contacting their agency/suprv on changes with patient. She reports that their is no oversight, consumer based like [facility], however I addressed t debbi Olmos has oversight with patient's so if there is a problem the PARAGLIDING INSTRUCTOR could contact someone regarding patient. With all this information unsure if patient is safe to be left alone at home, may need further services ie: AFC as mentioned prior. Will refer to provider and will follow up with nurseregarding her recap on visit. * Telephone Encounter - Jane Riggs - 12/28/2022 12:12 PM EDT Tc from pt requesting status on paperwork for PARAGLIDING INSTRUCTOR services. Needs it as soon as possible. Pt is currently crying on the phone. States all she needs is the paperwork to be signed. Please contact pt at [phone] documented in this encounter Plan of Treatment Upcoming Encounters Date Type Department Care Team (Late st Contact Info) Description 08/31/2024 2:15 PM EDT Office Visit [facility] [address] [place], [place] [phone] Amanda Beckford ANP [address] [place] [address] documented as of this encounter Visit Diagnoses Not on filedocumented in this encounter Care Teams Operations Research Manager Relationship Specialty Start Date End Date Amanda Beckford ANP [address] [place] [address] PCP - General Family Medicine 07/12/20 documented as of this encounter
--- OUTSIDE RECORDS SUMMARY | 2024-08-28 14:24 | XMS_ITS | Encounter Summary ---
Author Organization [employer] Address [address] [facility] [address] 7t [place] [address] Care Team Providers Care Zinc Plate Cutter Name Role Phone Amanda Beckford Primary Care Provider [phone] Reason for Visit * Reason Onset Date Comments Appointment Request 10/13/2023 Encounter Details Date Type Department Care Team ([facility] st Contact Info) Description 10/13/2023 Telephone [facility] [address] [place], [place] [phone] Amanda Beckford ANP [address] [place] [address] Appointment Request Social History Tobacco Use Types [...] Description 08/31/2024 2:15 PM EDT Office Visit [facility] [address] [place] [address] Amanda Beckford ANP [address] [place] [address] documented as of this encounter Visit Diagnoses Not on filedocumented in this encounter Additional Health Concerns Assessment Noted Time PHQ-9 Depression Total Score: 12 023 2:07 PM EDT documented as of this encounter Care Teams Zinc Plate Cutter Relationship Specialty Start Date End Date Amanda Beckford ANP [address] [place] [phone] PCP - General Family Medicine 07/12/20 documented as of this encounter
--- OUTSIDE RECORDS SUMMARY | 2024-08-28 14:24 | XMS_ITS | Clinical Summary ---
Author Organization [employer] Address [address] [facility] [address] 7[address] [place] [address] Care Team Providers Care Turntable Man Name Role Phone Analy Chris ALANIS Primary Care Provider [phone] Allergies No known active allergies Medications * [...] 11/05/19 18 Active diazePAM (Valium) 2 MG tabletIndication s:Anxiety take 1 tablet by oral route 15-30min before MRI, may repeat in 30min if needed 4 tablet 06/25/19 24 Active pantoprazole (ProtoNix) 40 MG EC tablet TAKE 1 TABLET BY MOUTH EVERY DAY 30 MINUTES BEFORE BREAKFAST 10/08/19 24 Active estradiol (Minivelle) 0.05 MG/24HRIndicatio ns:Menopause Use one patch twice weekly 24 patch 03/22/20 24 Active lisinopril 40 MG tabletIndication s:Primary hypertension Take 1 tablet (40 mg) by mouth Once per day. 90 tablet 1 04/28/20 24 Active amLODIPine (Norvasc) 10 MG tabletIndication s:Primary hypertension Take 1 tablet (10 mg) by mouth Once per day. 90 tablet 1 04/28/20 24 Active hydroCHLOROthiaz suleiman (HYDRODiuril) 25 MG tabletIndication s:Primary hypertension Take 1 tablet (25 mg) by mouth Once per day. 90 tablet 3 04/28/20 24 Active hydroxychloroqui ne (Plaquenil) 200 MG tabletIndication s:Undifferentiat ed connective tissue disease (CMS/HCC) TAKE 1 TABLET BY MOUTH TWICE DAILY 60 tablet 3 05/04/20 24 Active DULoxetine (Cymbalta) [address] capsuleIndicatio ns:Chronic pain syndrome TAKE 2 CAPSULES BY MOUTH EVERY DAY IN THE MORNING, DO NOT BREAK, CRUSH, DISSOLVE OR CHEW 60 capsule 5 07/03/19 25 Active QUEtiapine (SEROquel) 200 MG tabletIndication s:Mood disorder (CMS/HCC) TAKE 1 AND 1/2 TABLETS BY MOUTH EVERY DAY AT BEDTIME 45 tablet 5 07/03/19 25 Active gabapentin (Neurontin) 300 MG capsuleIndicatio ns:Polyarthralgi a TAKE 1 CAPSULE BY MOUTH TWICE A DAY 60 capsule 1 07/03/19 25 Active Tirzepatide-Weig ht Management (Zepbound) 2.5 MG/0.5ML solution auto-injectorInd ications:Class 3 severe obesity with serious comorbidity and body mass index (BMI) of 40.0 to 44.9 in adult, unspecified obesity type (CMS/HCC) Inject 0.5 mL (2.5 mg) under the skin 1 (one) time per week. 2 mL 07/13/19 25 Active celecoxib (CeleBREX) 200 MG capsuleIndicatio ns:Undifferentia eliud connective tissue disease (CMS/HCC) TAKE 1 CAPSULE BY MOUTH EVERY DAY 30 capsule 2 08/03/19 25 Active celecoxib (CeleBREX) 200 MG capsuleIndicatio ns:Undifferentia eliud connective tissue disease (CMS/HCC) TAKE 1 CAPSULE BY MOUTH EVERY DAY 30 capsule 2 04/06/20 24 025 Discontinued Active Problems Problem Noted Date Diagnosed Date [...] Encounters Date Type Department Care Team Description 08/22/2024 Telephone [facility] [place] [address] Chris Gonzales ANP order 08/03/2024 Refill [facility] 230 [place] [address] Chris Gonzales ANP Undifferentiated connective tissue disease (CMS/HCC) 07/28/2024 1:00 PM EST Clinical Support [facility] [address] [facility] [place] [address] Bree Holman RN Primary hypertension 07/28/2024 Travel 07/24/2024 9:30 AM EST Office Visit [facility] [address] [place] [address] Sarthak, Ella, OD Myopia of both eyes (Primary Dx) 07/18/2024 Telephone [facility] [address] [facility] [place] [place] [address] Maryann Estrada, ROLANDO Appointment Request 07/17/2024 Telephone [facility] [address] [place] [address] Nuris Crocker LPN 07/14/2024 Telephone [facility] [address] [place] [address] Chris Gonzales ANP 07/13/2024 2:00 PM EST Office Visit [facility] [address] [facility] [place] [address] Chris Gonzales ANP Mixed anxiety and depressive disorder (Primary Dx); Class 3 severe obesity with serious comorbidity and body mass index (BMI) of 40.0 to 44.9 in adult, unspecified obesity type ([facility]/HCC); Primary hypertension 07/13/2024 Telephone [facility] [address] [facility] [address] Maryann Estrada, RN Nurse Triage 07/13/2024 Travel 07/04/2024 Patient Outreach [address] [address] Chris Gonzales ANP Pre-visit Planning (SDOH Screening negative and Tobacco screening negative) 07/02/[address] [address] Chris Gonzales ANP Polyarthralgia 07/02/[address] [address] Zia Bower MD Chronic pain syndrome; Mood disorder (CMS/HCC); Polyarthralgia 06/23/[address] [address] Chris Gonzales ANP No Show 06/13/2024 Patient Outreach [address] [address] Chris Gonzales ANP Pre-visit Planning (Pre-visit planning - LVM ) 06/02/[address] [address] Jeaneth Houston MA DME from [facility] 05/31/[address] [address] Lyndsay Rodgers RNfloat operator (Wegovy 2.4mg) 05/30/2024 Refill [facility] [address] [place], [place] [phone] Chris Gonzales ANP from Last 3 Months [...] Description 08/31/2024 2:15 PM EDT Office Visit [facility] [address] [place], [place] [phone] Chris Gonzales ANP [address] [place], [place] [phone] Health Maintenance Due Date Last Done Comments [...] 12/20/2023, 12/20/2023 Depression Screening 12/19/2024 12/20/2023, 12/20/19 24 SDOH Screening 07/04/2025 07/04/2024 Tobacco Screening 07/13/2025 [...] Procedure Name Priority Date/Time Associated Diagnosis Comments TSH W/REFLEX TO FT4 Routine 08/11/2024 1 :35 PM EST MAGNESIUM Routine 08/11/2024 1:35 PM EST BASIC METABOLIC PANEL Routine 08/11/2024 1:35 PM EST ECG 12-LEAD Routine 07/13/2024 4:39 PM EST [...] Recently Relevant to Health Maintenance Results * TSH with Reflex to Free T4 (08/11/2024 1:35 PM EST) Pathologist [facility] TSH reflex Free T4 1.61 0.32 - 4.0 uIU/mL [facility] 08/11/2024 1:35 PM EST 08/11/2024 1:35 PM EST Generic External Data Provider LAB BLOOD ORDERAB LES Final Result Performing Organization Address [facility]/ZIP Co de Phone Number [facility] [address] [place] [phone] * Magnesium (08/11/2024 1:35 PM EST) Pathologist [facility] Magnesium 2.1 1.6 - 2.6 mg/dL [facility] 08/11/2024 1:35 PM EST 08/11/2024 1:35 PM EST Generic External Data Provider LAB BLOOD ORDERAB LES Final Result Performing Organization Address [facility]/ZIP Co de Phone Number [facility] [address] [place] [phone] * (ABNORMAL) Basic Metabolic Panel (08/11/2024 1:35 PM EST) Pathologist [facility] Sodium 140 135 - 145 mmol/L [facility] Potassium 3.5 3.3 - 5.1 mmol/L [facility] Chloride 105 96 - 108 mmol/L [facility] Carbon Dioxide 28 22 - 29 mmol/L [facility] Anion Gap 11(L) 12 - 20 [facility] Urea Nitrogen (BUN) 17(H) 9 - 16 mg/dL [facility] Creatinine, Serum 1.08 0.5 - 1.4 mg/dL [facility] Estimated Glomerular Filt Rate 52 [facility] Comment:Chronic Kidney Disea se: Estimated GFR < 60 mL/min/1.70i1Gdqbfl Kidney Disease: Estimated GFR < 15 mL/min/1.73m2 Glucose 140(H) 60 - 115 mg/dL [facility] Calcium 9.6 8.4 - 10.2 mg/dL [facility] 08/11/2024 1:35 PM EST 08/11/2024 1:35 PM EST us Generic External Data Provider LAB BLOOD ORDERAB LES Final Result [facility] [address] [place] [address] [phone] * ECG 12 lead (07/13/2024 4:39 PM EST) Narrative Chris Gonzales ANP - 07/13/2024 4:39 PM EST HR 95 (98 on 2nd tracing) Appears stable versus EKG above from cards Chris ALANIS ECG ORDERABLES Final Result * HIV-1/2 Antigen and Antibodies, Fourth Generation, with Reflexes (05/18/2023 12:59 PM EST) HIV AB/AG Nonreactive Nonreactive [facility] Comment:HIV-1 p24 Ag and/or HIV-1/HIV-2 Ab not detected.A test result that is nonreactive does not exclude thepossibility of exposure to or infection with HIV-1 and/orHIV-2. Nonreactive results in this assay for individualswith prior exposure to HIV-1 and/or HIV-2 may be due toantigen and antibody levels that are below the limit ofdetection of this assay.The [employer] HIV Ag/Ab Combo assay result andsupplemental assay results should be interpreted inconjunction with the patient's clinical presentation,history and other laboratory results. If the results areinconsistent with clinical evidence, additional testing issuggested to confirm the result. Blood Venous blood specimen / Unknown 05/18/2023 12:59 PM EST 05/18/2023 3:47 PM EST Chris Gonzales ANP LAB BLOOD ORDERABLES Final Resul t Performing Organization Address [facility] Co de Phone Number [facility] [address] [place] [phone] * (ABNORMAL) Lipid Panel, Standard (05/18/2023 12:59 PM EST) Triglycerides 175(H) <150 mg/dL [facility] Comment:Desirable Triglyceri de: less than 150 mg/dLBorderline High Triglyceride 150-199 mg/dLHigh Triglyceride: 200-499 mg/dLVery High Triglyceride: greater than or equal to 5OO mg/dL Cholesterol 233(H) <200 mg/dL [facility] Comment:Desirable Cholestero l: less than 200 mg/dLBorderline High Cholesterol: 200-239 mg/dLHigh Cholesterol: greater than 239 mg/dL LDL Cholesterol Calculated 144(H) <100 mg/dL [facility] Comment:Desirable LDL: less than 100 mg/dLNear Optimal/Above Optimal LDL: 110- 129 mg/dLBorderline High LDL: 130-159 mg/dLHigh LDL: 160-189 mg/dLVery High LDL: greater than or equal to 190 mg/dL HDL Cholesterol 54 >40 mg/dL [facility] Comment:Desirable HDL: great er than 40 mg/dL Note: This HDL assay may give artificially low results in patients with liver disease. Blood Venous blood specimen / Unknown 05/18/2023 12:59 PM EST 05/18/2023 3:47 PM EST us Chris Gonzales ANP LAB BLOOD ORDERABLES Final Resul t Performing Organization Address [facility]/ZIP Co de Phone Number [facility] [address] [place] [address] [phone] * BI Mammogram Screening Tomosynthesis Bilateral (03/18/2023 1:11 PM EDT) Anatomical Region Laterality Modality Breast Bilateral Mammography 03/18/2023 1:11 PM EDT Narrative 04/07/2023 9:22 PM EDT ? [facility] ? [address] ?[place] [address] ? Mammography Report ? Signed ? Patient: Colon,Sonia ?MR#: [id number] ? : 1970 ?Acct:[id number] ? Age/Sex: 52 / F ?ADM Date: 03/18/23 ? Loc: HO.MAMMO ? Attending Dr: Chris Gonzales ENGINEER [employer] ? Ordering Physician: CHRIS GONZALES NP ?Results: 1Negative ? Date of Service: 03/18/23 ?Follow Up: 1 Year From Orig ?? inal Mammogram ? Procedure(s): MM tomosynthesis screening BI ?? Accession Number(s): [id number] ? cc: CHRIS GONZALES NP ? EXAMINATION: [...] by Mahi Birmingham MD in OV> ? 10/23 8 ? DD/ 1311 ? TD/TT: ? Machine Adjuster Helper: ? Procedure Note Dondeniseter, Image - 04/07/2023 [facility] [address] [place] [address] Mammography Report Signed Patient: Leslie Camilo#: [id number] : 1970Acct:[id number] Age/Sex: 52 / FADM Date: 03/18/23 Loc: HO.MAMMO Attending Dr: Chris Gonzales NP Ordering Physician: CHRIS GONZALESults: 1Negative Date of Service: 03/18/23Follow Up: 1 Year From Orig inal Mammogram Procedure(s): MM tomosynthesis screening BI Accession Number(s): [id number] cc: CHRIS GONZALES NP EXAMINATION: MM SCREENING [...] signed by Mahi Birmingham MD in OV> 04/07/23 2118 DD/ 1311 TD/TT: Machine Adjuster Helper: [facility] ANP IMG BI PROCEDURES Edited Result - Final * Hm Colonoscopy (11/16/2018) Colonoscopy Normal Normal 11/16/2018 Love Thompsno - 11/16/2018 10:54 AM EDT Recommended 5 [place] ( [facility] [place] [facility] Provider HEALTH MAINTENANCE Final Result * HPV mRNA E6/E7 (09/14/2018 2:07 PM EDT) HPV mRNA E6/E7 Not Detected NOT DETECTED [facility] Comment: This test was performed using the APTIMA(R) HPV Assay ([employer] This assay detects E6/E7 viral messenger RNA (mRNA) from 14 high-risk HPV types (16,18,31,33,35,39,45,51, 52,56,58,59,66,68). For additional information please refer to: http://education.[employer]/faq/VAF167h0 (This link is being provided for informational/ educational purposes only.) The analytical performance characteristics of this assay have been determined by [employer] [place], [place]. The modifications have not been cleared or approved by the FDA. This assay has been validated pursuant to the CLIA regulations and is used for clinical purposes. Test Performed by [facility], [employer], [address] [place] [address] Samy Agosto M.D., Ph.D., Director of Laboratories , CLIA [id number] Please note: ??Effective 03/02/2016, HPV testing will be performed using [employer]'s APTIMA test which targets mRNA. Detecting mRNA instead of DNA, as in older methods, offers significant improvements in specificity. 09/14/2018 2:07 PM EDT us Amalia Tavarez CNM HISTORICAL/NON ORDERABLE LABS Final Result [facility] [address] * Hm Pap Smear (09/14/2018 12:00 AM EDT) us Historical Provider MD HEALTH MAINTENANCE Final Result from Last 3 Months or Most Recently Relevant to Health Maintenance Insurance * Guarantor: Sonia Camilo Account Type Relation to Patient Date of Phone Billing Address Personal/Family Self [address] Care Teams Turntable Man Relationship Specialty Start Date End Date Chris Gonzales ANP [address] [place] [address] PCP - General Family Medicine 07/12/20
--- OUTSIDE RECORDS SUMMARY | 2024-08-28 14:24 | XMS_ITS | Encounter Summary ---
Author Organization [employer] Address 75 [facility] 7t [place] [address] Care Team Providers Care Patent Attorney Name Role Phone Amanda Beckford Primary Care Provider [phone] Reason for Visit * Reason Onset Date Comments Nurse Triage 12/30/2022 Encounter Details Date Type Department Care Team (Late st Contact Info) Description 12/30/2022 Telephone [facility] [address] [place] [address] Amanda Beckford ANP [address] [place] [address] Nurse Triage Social History Tobacco Use Types [...] PM EDT Patient called the call center, business process representative assisted with palestinian translation regarding questions, patient does live alone, she does have family but they do not see each other much. Patient does have HHS, Shower bench, commode, walker, electric w/c or scooter unsure per alpine guide. Patient does live in a handicapped apartment. Patient currently gets COMPENSATION/BENEFITS SPECIALIST 36 hrs daytime hours, 0 night time [...] 12/30/2022 2:01 PM EDT Triage call with [employer] [place] [id number] Pt reports a fall 2 weeks ago. [...] to see provider. AdvisedPt to come to [facility] today and be seen by provider and [...] accepted this outcome Please contact pt at [phone] ([place] Citizen speaker) documented in this encounter Plan of Treatment Upcoming Encounters Date Type Department Care Team (Late st Contact Info) Description 08/31/2024 2:15 PM EDT Office Visit [facility] [address] [place] [address] Amanda Beckford ANP [address] [place] [address] documented as of this encounter Visit Diagnoses Not on filedocumented in this encounter Care Teams Patent Attorney Relationship Specialty Start Date End Date Amanda Beckford ANP [address] [place] [address] PCP - General Family Medicine 07/12/20 documented as of this encounter
--- OUTSIDE RECORDS SUMMARY | 2024-08-28 14:24 | XMS_ITS | Encounter Summary ---
Author Organization [employer] Address 75 [facility] 7t [place] [address] Care Team Providers Care Locomotive Oiler Name Role Phone Amanda Beckford Primary Care Provider Encounter Details Date Type Department Care Team (Late st Contact Info) Description 11/03/[address] [address] Amanda Beckford ANP [address] [place] [phone] Social History Tobacco Use Types Packs/Day Years [...] Description 08/31/2024 2:15 PM EDT Office Visit [address] [address] Amanda Beckford ANP [address] [place] [address] documented as of this encounter Procedures Procedure Name Priority Date/Time Associated Diagnosis Comments COLONOSCOPY Routine 11/16/2018 PAP/HPV Routine 09/14/2018 12:00 AM EDT documented in this encounter Results * Colonoscopy (11/16/2018) Colonoscopy Normal Normal 11/16/2018 Narrative Love Morton - 11/16/2018 10:54 AM EDT Recommended 5 year follow up ( [facility] [place] us Historical Provider HEALTH MAINTENANCE Final Result * Pap Smear (09/14/2018 12:00 AM EDT) us Historical Provider HEALTH MAINTENANCE Final Result documented in this encounter Visit Diagnoses Not on filedocumented in this encounter Care Teams Locomotive Oiler Relationship Specialty Start Date End Date Amanda Beckford ANP [address] [place] [address] PCP - General Family Medicine 07/12/20 documented as of this encounter
== END 2024-08-28 13:43 | disposition home or self-care (01) ==
PROVIDERS: PCP Nurse Practitioner Primary Care; Visit Provider Nurse Practitioner Family
DX: N20.0 Calculus of kidney (principal)
CPT/HCPCS: 99203

== ENCOUNTER → 2024-08-28 12:52 | Outpatient (BNVA) | payer MEDICAID, SELFPAY | PROVIDERS: PCP Nurse Practitioner Primary Care; Visit Provider Nurse Practitioner Family | DX: N20.0 Calculus of kidney (principal) | CPT/HCPCS: 99212 ==

== ENCOUNTER 2024-10-23 10:36 | Outpatient (AMB) | payer MEDICAID, SELFPAY ==
--- NOTE | 2024-10-23 10:48 | MHC.OFFVIS ---
Vital Signs 10/23/24 10:53 Height 5 ft 4 in Weight 246 lb BMI 42.2 Intake Visit Reasons: New Pt - B/L knee pain Intake Note: Sonia is a 54 year old female who presents today with her niece as a new patient for a evaluation of her bilateral knee pain. Hx of right knee surgery at [facility] about 6 years ago. Hx of left knee surgery about 15 + years ago. Patient has been seen with pain management which they gave her gabapentin. She states that the gabapentin which didn't give her relief. Patient had injections before a couple years back which gave her relief. Patient expresses that her pain is equal in bot knees and her pain is through out her whole knee and it moves to the back of her knees. Golf Cart Attendant Services: Golf Cart Attendant Offered & Declined Accompanied by: Niece Allergies hydroxychloroquine Allergy (Verified 10/23/24 10:53) Unknown HPI HPI New Pt - B/L knee pain: Details: Ms. Camilo is a 54-year-old female who presents to the office today for evaluation of bilateral knee pain. She reports that she has a history of right knee surgery at [facility] roughly 6 years ago and a history of left surgery 15+ years ago. She has been seen with pain management for her bilateral chronic knee pain and was given gabapentin. She reports that the does not give her any relief. She has had cortisone injections in the past with gave her a little bit of relief. [facility] Medical History Lupus Arthritis Anemia History of anxiety Depression Personal history of tuberculosis HTN (hypertension) Surgical History Hx of total hysterectomy with removal of both tubes and ovaries Hx of dilation and curettage History of esophagogastroduodenoscopy (EGD) H/O colonoscopy Hx of knee surgery Hx of lithotripsy Hx of appendectomy Social History Alcohol intake: never Years Smoked: 36 Substance Use Type: Marijuana Review of Systems Const All systems reviewed & are unremarkable except as noted in HPI and below Physical Exam Vital Signs: BMI result Body Mass Index 42.2 Const General: cooperative, healthy appearing and no acute distress Resp Effort & Inspection: normal respiratory effort and able to speak in complete sentences Extrem Other: Right/Left knee: Morbidly obese. No ecchymosis, erythema, or joint effusion. Range of motion 10-90 degrees. NVI. Office Procedures AMB Joint Injection/Aspiration Joint Injection/Aspiration Primary Site: right knee Secondary Site: left knee Prep: site was prepped using aseptic technique, ethochloride spray was applied and injection warnings given Injected: 80 mg of, DepoMedrol, with 8 mL of (2% plain lidocaine) and in the joint Approach Used: anterolateral Procedure: The patient tolerated the procedure well, but had some pain with the injection and there was some relief with the local anesthesia Coding 30832 - Bilateral Large Joint Procedure code (CPT) selection complete Assessment & Plan Assessment & Plan (1) Bilateral primary osteoarthritis of knee: Code(s): M17.0 - Bilateral primary osteoarthritis of knee Category: Medical Plan Ms. Camilo is a 54-year-old female who presents to the office today for evaluation of bilateral knee pain. She reports that she has a history of right knee surgery at [facility] roughly 6 years ago and a history of left surgery 15+ years ago. She has been seen with pain management for her bilateral chronic knee pain and was given gabapentin. She reports that the does not give her any relief. She has had cortisone injections in the past with gave her a little bit of relief. While the office today we discussed cortisone injection. The patient was offered a cortisone injection in bilateral knees with 80 mg of DepoMedrol. The patient was explained the risks, benefits, and alternatives to receiving this injection. After receiving consent for the injection, the patient had the procedure done while in the office today. The patient tolerated the procedure well with no complications. Unfortunately, the patient is not a surgical candidate at this time due to BMI 42.2. Patient is requesting chronic pain medication management. I have referred her back to pain management for this discussion. Follow-up will be p.r.n., or sooner if needed X-rays of bilateral knees which were obtained while in the office today and were reviewed by me, Clary Butler PA-C, revealed significant osteoarthritis. Left knee orthopedic hardware intact with no signs of loosening or hardware failure. Orders: Orders XR Knee To 3V Today M25.561 - Pain in right knee, M25.562 - Pain in left knee Coding Level of Care Code New Pt Level 4 (74489) Diagnoses Bilateral primary osteoarthritis of knee M17.0 CPT Codes Coding - - Bilateral Large Joint: - Bilateral Large Joint ([id number])
[2024-10-23 10:53] VITALS: BMI 42.2
--- OUTSIDE RECORDS SUMMARY | 2024-10-23 12:03 | XMS_ITS | Encounter Summary ---
Author Organization [employer] Address [address] 7[address] [place] [address] Care Team Providers Care Process Pumper Name Role Phone Analy Amanda ALANIS Primary Care Provider [phone] Reason for Visit * Reason Comments Med Refill Encounter Details Date Type Department Care Team (Late st Contact Info) Description 07/19/2023 Refill [facility] [address] [place], [place] [phone] Anna Marie Sapp MD [address] [place], [place] [phone] Undifferentiated connective tissue disease (CMS/HCC) Social History [...] as of this encounter Plan of Treatment Not on file documented as of this encounter Visit Diagnoses Diagnosis Undifferentiated connective tissue disease (CMS/HCC) Unspecified diffuse connective tissue disease documented in this encounter Additional Health Concerns Assessment Noted Time PHQ-9 Depression Total Score: 12 023 2:07 PM EDT documented as of this encounter Care Teams Process Pumper Relationship Specialty Start Date End Date Amanda Beckford ANP [address] [place] [address] PCP - General Family Medicine 07/12/20 documented as of this encounter
--- OUTSIDE RECORDS SUMMARY | 2024-10-23 12:03 | XMS_ITS | Clinical Summary ---
Author Organization [employer] Address [address] [place] [address] Care Team Providers Care Automotive Service Writer Name Role Phone Christian Chris ALANIS Primary Care Provider [phone] Allergies No known active allergies Medications * [...] 30 MINUTES BEFORE BREAKFAST 10/08/19 24 Active lisinopril 40 MG tabletIndicatio ns:Primary [...] day. 90 tablet 3 04/28/20 24 Active DULoxetine (Cymbalta) [address] capsuleIndicati ons:Chronic pain syndrome TAKE 2 CAPSULES BY MOUTH EVERY DAY IN THE MORNING, DO NOT BREAK, CRUSH, DISSOLVE OR CHEW 60 capsule 5 07/03/19 25 Active QUEtiapine (SEROquel) 200 MG tabletIndicatio ns:Mood disorder (CMS/HCC) TAKE 1 AND 1/2 TABLETS BY MOUTH EVERY DAY AT BEDTIME 45 tablet 5 07/03/19 25 Active celecoxib (CeleBREX) 200 MG capsuleIndicati ons:Undifferent iated connective tissue disease (CMS/HCC) TAKE 1 CAPSULE BY MOUTH EVERY DAY 30 capsule 2 08/03/19 25 Active gabapentin (Neurontin) 300 MG capsuleIndicati ons:Polyarthral larry TAKE 1 CAPSULE BY MOUTH TWICE DAILY 60 capsule 1 09/02/19 25 Active hydroxychloroqu ine (Plaquenil) 200 MG tabletIndicatio ns:Undifferenti ated connective tissue disease (CMS/HCC) TAKE 1 TABLET BY MOUTH TWICE DAILY 60 tablet 3 09/02/19 25 Active Tirzepatide-Inocente ght Management (Zepbound) 5 MG/0.5ML solution auto-injectorIn dications:Class 3 severe obesity with serious comorbidity and body mass index (BMI) of 40.0 to 44.9 in adult, unspecified obesity type Inject 0.5 mL (5 mg) under the skin 1 (one) time per week. 2 mL 1 09/09/19 25 Active estradiol (Minivelle) 0.05 MG/24HRIndicati ons:Menopause Use one patch twice weekly 24 patch 10/11/19 25 Active estradiol (Minivelle) 0.05 MG/24HRIndicati ons:Menopause Use one patch twice weekly 24 patch 03/22/20 24 025 Discontinued(Re order (will not trigger notification to Pharmacy)) Active Problems Problem Noted Date Diagnosed Date Chronic pain of both knees 08/31/2024 Primary osteoarthritis of both knees 08/31/2024 Smoking 08/31/2024 History of hysterectomy with bilateral oophorect papi 08/31/2024 Overview (08/31/2024): 2020 OLESYA w/ BSO unk if cervix present, will check w/ pelvic/pap prn, prefers female provider Class 3 severe obesity with serious comorbidity [...] LA dilation, EF 55-60% 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 Hypertensive left ventricula r hypertrophy, without heart failure 09/19/2012 Mixed anxiety and depressive disorder 09/19/2012 Pulmonary hypertension 09/19/2012 Encounters Date Type Department Care Team Description 10/10/2024 Refill [facility] [address] [place] [address] Chris Gonzales ANP Menopause 10/03/2024 Telephone [facility] [address] [place] [address] Amalia Tavarez, RICHARD No Show 09/08/2024 Refill [facility] [address] [place] [address] Chris Gonzales ANP Class 3 severe obesity with serious comorbidity and body mass index (BMI) of 40.0 to 44.9 in adult, unspecified obesity type ([facility]) 09/07/2024 Telephone [facility] [address] [place] [address] Bree Holman RN Blood Pressure Log Review 09/04/2024 Telephone [facility] [address] [place] [address] Chris Gonzales ANP Prior Authorization (Zepbound) 09/01/2024 Telephone [facility] [address] [place] [address] Chris Gonzales ANP Prior Authorization 09/01/2024 Refill [facility] [address] [place] [address] Chris Gonzales ANP Polyarthralgia; Undifferentiated connective tissue disease (CMS/HCC) 08/31/2024 2:15 PM EDT Office Visit [facility] [address] [place] [phone] Chris Gonzales ANP Bilateral knee swelling (Primary Dx); Primary osteoarthritis of both knees; Chronic pain of both knees; Class 3 severe obesity with serious comorbidity and body mass index (BMI) of 40.0 to 44.9 in adult, unspecified obesity type (CMS/HCC); Pulmonary hypertension (CMS/HCC); Hypertensive left ventricular hypertrophy, without heart failure; Asymptomatic hypertensive urgency; Screening mammogram for breast cancer; Smoking; History of hysterectomy with bilateral oophorectomy 08/31/2024 Travel 08/29/2024 Telephone [facility] [address] [place], [place] [phone] Chris Gonzales ANP 08/29/2024 Telephone [facility] [address] [place] [address] Chris Gonzales ANP chartprep 08/22/2024 Telephone [facility] [address] [place] [address] Chris Gonzales ANP order 08/03/2024 Refill [facility] [address] [place] [address] Chris Gonzales ANP Undifferentiated connective tissue disease ([facility]) 07/28/2024 1:00 PM EST Clinical Support [address] [address] Bree Holman RN Primary hypertension 07/28/2024 Travel from Last 3 Months Immunizations Name Administration Dates Next Due Hep B, adult 04/26/2007 Influenza injectable quadriv alent IIV4 with preservative 06/01/2017 Influenza injectable quadriv alent preservative free 04/09/2023 Influenza, Split (incl. yvonne fied surface antigen) 03/29/2013 Influenza, seasonal, injecta ble, preservative free 03/22/2024 MMR 04/26/2007 Moderna Covid-19 Vaccine 12+ 07/23/2021,12/03/19 21,10/29/2020 Pneumococcal Conjugate PCV 20 08/31/2024 Rabies, intramuscular 01/10/2019 TD (adult), 2 Lf [...] Sign Reading Time Taken Comments Blood Pressure 165/95 08/31/2024 3:07 PM EDT Pulse 100 08/31/2024 3:07 PM EDT Temperature 36.6 ??C (97.8 ??F) 08/31/2024 2:26 PM ED T Respiratory Rate 16 08/31/2024 2:26 PM EDT Oxygen Saturation 97% 08/31/2024 2:26 PM EDT Inhaled Oxygen Concentration - - Weight 113 kg (248 lb 12.8 oz) 08/31/2024 2:26 P M EDT Height 162.6 cm (5' 4 ) 08/31/2024 2:26 PM EDT Body Mass Index 42.71 08/31/2024 2:26 PM EDT Plan of Treatment Health Maintenance Due Date Last Done Comments CT Colonography 1968 FIT DNA/Cologuard 1968 FIT 1968 FOBT 1968 Sigmoidoscopy 1968 Alcohol/Substance Use Screening 1980 Hepatitis C Screening 1986 Hepatitis B Vaccines (2 of 3 - 19+ 3-dose series) 05/24/2007 04/26/2007 Zoster Vaccines (1 of 2) 2018 Cervical Cancer Screening 09/14/2021 HPV/Cotest 09/14/2021 09/14/2018 Pap Smear 09/14/2021 09/14/2018 COVID-19 Vaccine ( season) 2024 07/23/2021, 12/02/2020, 10/29/2020 Mammogram 03/18/2024 03/18/2023, 08/24/2018 Depression Screening 12/19/2024 12/20/2023, 12/20/19 SDOH Screening 07/04/2025 07/04/2024 Tobacco Screening 08/31/2025 08/31/2024 Lipid Panel 05/18/2028 05/18/2023 Colonoscopy 11/16/2028 11/16/2018 Colorectal Cancer Screening 11/16/2028 DTaP/Tdap/Td Vaccines (4 - Td or Tdap) 12/12/2032 12/12/2022, 01/10/2019, 03/29/2013, Additional history exists RSV Patients and Patients Aged 60 years or older (1 - 1-dose 75+ series) 2043 HIV Screening Completed 05/18/2023 Influenza Vaccine Completed 03/22/2024, , 06/01/2017, Additional history exists Pneumococcal Vaccine: 50+ Years Completed 08/31/2024 HIB Vaccines Aged Out No longer eligi [...] METABOLIC PANEL Routine 08/11/2024 1:35 PM EST HIV 1/2 ANTIGEN/ANTIBODY, FOURTH GENERATION W/RFL [...] to Free T4 (08/11/2024 1:35 PM EST) TSH reflex Free T4 1.61 0.32 - 4.0 uIU/mL [facility] 08/11/2024 1:35 PM EST 08/11/2024 1:35 PM EST us Generic External Data Provider LAB BLOOD ORDERAB LES Final Result Performing Organization Address [facility] Co de Phone Number [facility] [address] [place] [phone] * Magnesium (08/11/2024 1:35 PM EST) Magnesium 2.1 1.6 - 2.6 mg/dL [facility] 08/11/2024 1:35 PM EST 08/11/2024 1:35 PM EST Generic External Data Provider LAB BLOOD ORDERAB LES Final Result Performing Organization Address [facility] de Phone Number [facility] [address] [place] [address] [phone] * (ABNORMAL) Basic Metabolic Panel (08/11/2024 1:35 PM EST) Pathologist [facility] Sodium 140 135 - 145 mmol/L [facility] Potassium 3.5 3.3 - 5.1 mmol/L [facility] Chloride 105 96 - 108 mmol/L [facility] Carbon Dioxide 28 22 - 29 mmol/L [facility] Anion Gap 11(L) 12 - 20 [facility] Urea Nitrogen (BUN) 17(H) 9 - 16 mg/dL [facility] Creatinine, Serum 1.08 0.5 - 1.4 mg/dL [facility] Estimated Glomerular Filt Rate 52 [facility] Comment:Chronic Kidney Disea se: Estimated GFR < 60 mL/min/1.31h3Iblwoi Kidney Disease: Estimated GFR < 15 mL/min/1.73m2 Glucose 140(H) 60 - 115 mg/dL [facility] Calcium 9.6 8.4 - 10.2 mg/dL [facility] 08/11/2024 1:35 PM EST 08/11/2024 1:35 PM EST Generic External Data Provider LAB BLOOD ORDERAB LES Final Result Performing Organization Address City/[facility]/ZIP Co de Phone Number [facility] [address] [place] [phone] * HIV-1/2 Antigen and Antibodies, Fourth Generation, with Reflexes (05/18/2023 12:59 PM EST) HIV AB/AG Nonreactive Nonreactive [facility] Comment:HIV-1 p24 Ag and/or HIV-1/HIV-2 Ab not detected.A test result that is nonreactive does not exclude thepossibility of exposure to or infection with HIV-1 and/orHIV-2. Nonreactive results in this assay for individualswith prior exposure to HIV-1 and/or HIV-2 may be due toantigen and antibody levels that are below the limit ofdetection of this assay.[employer] HIV Ag/Ab Combo assay result andsupplemental assay results should be interpreted inconjunction with the patient's clinical presentation,history and other laboratory results. If the results areinconsistent with clinical evidence, additional testing issuggested to confirm the result. Blood Venous blood specimen / Unknown 05/18/2023 12:59 PM EST 05/18/2023 3:47 PM EST Chris Gonzales [facility] LAB BLOOD ORDERABLES Final Resul t Performing Organization Address City/[facility]/ZIP Co de Phone Number [facility] [address] [place] [phone] * (ABNORMAL) Lipid Panel, Standard (05/18/2023 12:59 PM EST) Triglycerides 175(H) <150 mg/dL [facility] Comment:Desirable Triglyceri de: less than 150 mg/dLBorderline High Triglyceride 150-199 mg/dLHigh Triglyceride: 200-499 mg/dLVery High Triglyceride: greater than or equal to 5OO mg/dL Cholesterol 233(H) <200 mg/dL [facility] Comment:Desirable Cholestero l: less than 200 mg/dLBorderline High Cholesterol: 200-239 mg/dLHigh Cholesterol: greater than 239 mg/dL LDL Cholesterol Calculated 144(H) <100 mg/dL [facility] Comment:Desirable LDL: less than 100 mg/dLNear Optimal/Above Optimal LDL: 110- 129 mg/dLBorderline High LDL: 130-159 mg/dLHigh LDL: 160-189 mg/dLVery High LDL: greater than or equal to 190 mg/dL HDL Cholesterol 54 >40 mg/dL [facility] Comment:Desirable HDL: great er than 40 mg/dL Note: This HDL assay may give artificially low results in patients with liver disease. Blood Venous blood specimen / Unknown 05/18/2023 12:59 PM EST 05/18/2023 3:47 PM EST us Chris Gonzales ANP LAB BLOOD ORDERABLES Final Resul t [facility] [address] [place] [phone] [phone] * BI Mammogram Screening Tomosynthesis Bilateral (03/18/2023 1:11 PM EDT) Anatomical Region Laterality Modality Breast Bilateral Mammography 03/18/2023 1:11 PM EDT Narrative 04/07/2023 9:22 PM EDT ? [facility] ? [address] ?[place] [address] ? Mammography Report ? Signed ? Patient: Colon,Sonia ?MR#: [id number] ? : 1970 ?Acct:[id number] ? Age/Sex: 52 / F ?ADM Date: 09/28/23 ? Loc: HO.MAMMO ? Attending Dr: Chris Gonzales GRAIN II FARMWORKER ? Ordering Physician: CHRIS GONZALES NP ?Results: 1Negative ? Date of Service: 03/18/23 ?Follow Up: 1 Year From Orig ?? inal Mammogram ? Procedure(s): MM tomosynthesis screening BI ?? Accession Number(s): [id number] ? cc: CHRISTIAN,CHRIS [facility] ? EXAMINATION: ?? [...] MD ? Signed By: ?<Electronically signed by Mhai Birmingham MD in OV> ? 04/07/232117 ? DD/DT: 03/18/ 1311 ? TD/TT: ? Biodiesel Technology Manager: ? Procedure Note Hemanth Rust - 04/07/2023 [place] [facility] [address] [place] [address] Mammography Report Signed Patient: Leslie Camilo#: [id number] : 1970Acct:[id number] Age/Sex: 52 / FADM Date: 03/18/23 Loc: HO.MAMMO Attending Dr: Chris Gonzales GRAIN II FARMWORKER Ordering Physician: CHRIS GONZALES NPResults: 1Negative Date of Service: 03/18/23Follow Up: 1 Year From Orig inal Mammogram Procedure(s): MM tomosynthesis screening BI Accession Number(s): [id number] cc: CHRIS GONZALES NP EXAMINATION: MM SCREENING [...] signed by Mahi Birmingham MD in OV> 04/07/238 DD/ 1311 TD/TT: Biodiesel Technology Manager: Chris Gonzales ANP IMG BI PROCEDURES Edited Result - Final * Hm Colonoscopy (11/16/2018) Colonoscopy Normal Normal 11/16/2018 Love Thompson - 11/16/2018 10:54 AM EDT Recommended 5 year follow up ( [facility] ) Historical Provider MD HEALTH MAINTENANCE Final Result * HPV mRNA E6/E7 (09/14/2018 2:07 PM EDT) HPV mRNA E6/E7 Not Detected NOT DETECTED [facility] Comment: This test was performed using the APTIMA(R) HPV Assay ([employer] This assay detects E6/E7 viral messenger RNA (mRNA) from 14 high-risk HPV types (16,18,31,33,35,39,45,51, 52,56,58,59,66,68). For additional information please refer to: http://education.[employer]/faq/JAJ599x0 (This link is being provided for informational/ educational purposes only.) The analytical performance characteristics of this assay have been determined by [facility] [place], [place]. The modifications have not been cleared or approved by the FDA. This assay has been validated pursuant to the CLIA regulations and is used for clinical purposes. Test Performed by [facility], [facility] [place], [address] [place] [address] Samy Agosto M.D., Ph.D., Director of Laboratories , CLIA [id number] Please note: ??Effective 03/02/2016, HPV testing will be performed using [employer]'s APTIMA test which targets mRNA. Detecting mRNA instead of DNA, as in older methods, offers significant improvements in specificity. 09/14/2018 2:07 PM EDT Amalia Tavarez CNM HISTORICAL/NON ORDERABLE LABS Final Result [facility] [address] * Hm Pap Smear (09/14/2018 12:00 AM EDT) Historical Provider HEALTH MAINTENANCE Final Result from Last 3 Months or Most Recently Relevant to Health Maintenance Insurance [facility] [employer] Care Teams Automotive Service Writer Relationship Specialty Start Date End Date Chris Gonzales ANP [address] [place] [phone] PCP - General Family Medicine 07/12/20
--- OUTSIDE RECORDS SUMMARY | 2024-10-23 12:03 | XMS_ITS | Encounter Summary ---
Author Organization [employer] Address [address] [facility] [address]t [place] [address] Care Team Providers Care Squadron Worker Name Role Phone Amanda Beckford Primary Care Provider [phone] Reason for Visit * Reason Onset Date Comments Nurse Triage 12/30/2022 Encounter Details Date Type Department Care Team (Late st Contact Info) Description 12/30/[address] [facility] [address] [place] [address] Amanda Beckford ANP [address] [place] [address] Nurse Triage Social History Tobacco Use Types [...] PM EDT Patient called the call center, guest services representative assisted with singaporean translation regarding questions, patient does live alone, she does have family but they do not see each other much. Patient does have HHS, Shower bench, commode, walker, electric w/c or scooter unsure per edge roller. Patient does live in a handicapped apartment. Patient currently gets [employer] 36 hrs daytime hours, 0 night time [...] 12/30/2022 2:01 PM EDT Triage call with [employer] [place] ID [id number] Pt reports a fall 2 weeks ago. [...] to see provider. AdvisedPt to come to [facility] today and be seen by provider and [...] accepted this outcome Please contact pt at [phone] (Sami speaker) documented in this encounter Plan of Treatment Not on file documented as of this encounter Visit Diagnoses Not on filedocumented in this encounter Care Teams Squadron Worker Relationship Specialty Start Date End Date Amanda Beckford ANP [address] [place] [address] PCP - General Family Medicine 07/12/20 documented as of this encounter
--- OUTSIDE RECORDS SUMMARY | 2024-10-23 12:03 | XMS_ITS | Encounter Summary ---
Author Organization [employer] Address [address] [place] [address] Care Team Providers Care Senior Security Engineer Name Role Phone Analy Amanda ALANIS Primary Care Provider [phone] Reason for Visit * Reason Comments Med Refill Encounter Details Date Type Department Care Team (Late st Contact Info) Description 07/19/2023 Refill [facility] [address] [facility] [place], [place] [phone] Lis Cortez FNP Chronic pain syndrome Social [...] as of this encounter Care Teams Senior Security Engineer Relationship Specialty Start Date End Date Amanda Beckford ANP [address] [place] [phone] PCP - General Family Medicine 07/12/20 documented as of this encounter
--- OUTSIDE RECORDS SUMMARY | 2024-10-23 12:03 | XMS_ITS | Encounter Summary ---
Author Organization [employer] Address [address] [facility] [address] [place] [address] Care Team Providers Care Welder Gas Tungsten Arc Name Role Phone Amanda Beckford Primary Care Provider [phone] Reason for Visit * Reason Onset Date Comments Appointment Request 10/13/2023 Encounter Details Date Type Department Care Team ([facility] st Contact Info) Description 10/13/2023 Telephone [facility] MEDICINE 230 [place], [place] [phone] Amanda Beckford ANP 230 [place] [address] Appointment Request Social History Tobacco Use Types [...] documented as of this encounter Care Teams Welder Gas Tungsten Arc Relationship Specialty Start Date End Date Amanda Beckford ANP [address] [place] [address] PCP - General Family Medicine 07/12/20 documented as of this encounter
--- OUTSIDE RECORDS SUMMARY | 2024-10-23 12:03 | XMS_ITS | Encounter Summary ---
Author Organization [employer] Address [address] [facility] [address] [place] [address] Care Team Providers Care Strawhat Sizer Name Role Phone Amanda Beckford Primary Care Provider [phone] Reason for Visit * Reason Comments Med Refill Encounter Details Date Type Department Care Team ([facility] st Contact Info) Description 06/18/2022 Refill [facility] MEDICINE 230 [place], [place] [phone] Amanda Beckford ANP 230 [place], [place] [phone] Chronic pain syndrome (Primary Dx); Primary hypertension; [...] states documented in this encounter Care Teams Strawhat Sizer Relationship Specialty Start Date End Date Amanda Beckford ANP 230 [place] [address] PCP - General Family Medicine 07/12/20 documented as of this encounter
--- OUTSIDE RECORDS SUMMARY | 2024-10-23 12:03 | XMS_ITS | Encounter Summary ---
Author Organization [employer] Address [address] [address] 7t [place] [address] Care Team Providers Care Telephone Technician Name Role Phone Amanda Beckford Primary Care Provider [phone] Reason for Visit * Reason Onset Date Comments Med Refill 07/19/2023 Encounter Details Date Type Department Care Team (Late st Contact Info) Description 07/19/2023 Telephone [facility] MEDICINE 230 [place], [place] [phone] Amanda Beckford ANP 230 [place], [place] [phone] Med Refill Social History Tobacco Use Types [...] 200 MG tablet To be sent to: [facility] [place], [place] - [address] [facility] documented in this encounter Plan of Treatment Not on file documented as of this encounter Visit Diagnoses Not on filedocumented in this encounter Additional Health Concerns Assessment Noted Time PHQ-9 Depression Total Score: 12 023 2:07 PM EDT documented as of this encounter Care Teams Telephone Technician Relationship Specialty Start Date End Date Amanda Beckford ANP [address] [place] [address] PCP - General Family Medicine 07/12/20 documented as of this encounter
--- OUTSIDE RECORDS SUMMARY | 2024-10-23 12:03 | XMS_ITS | Encounter Summary ---
Author Organization [employer] Address [address] [facility] [address] 7t [place] [address] Care Team Providers Care Sales Support Administrator Name Role Phone Analy Amanda ALANIS Primary Care Provider [phone] Reason for Visit * Reason Comments Med Refill Encounter Details Date Type Department Care Team (Late st Contact Info) Description 07/19/2023 Refill [facility] [place], [place] [phone] Lis Cortez FNP Chronic pain syndrome Social [...] documented as of this encounter Care Teams Sales Support Administrator Relationship Specialty Start Date End Date Amanda Beckford ANP [address] [place] [id number] PCP - General Family Medicine 07/12/20 documented as of this encounter
--- OUTSIDE RECORDS SUMMARY | 2024-10-23 12:03 | XMS_ITS | Encounter Summary ---
Author Organization [employer] Address [address] [facility] [address] [facility] [facility] [address] 7[address] [place] [address] Care Team Providers Care Executive Coordinator Name Role Phone Amanda Beckford Primary Care Provider [phone] Encounter Details Date Type Department Care Team (Late st Contact Info) Description 11/03/2022 Abstract [facility] MEDICINE 230 [place] [address] Amanda Beckford ANP 230 [place] [address] Social History Tobacco Use Types Packs/Day Years [...] on file documented as of this encounter Procedures Procedure Name Priority Date/Time Associated Diagnosis Comments COLONOSCOPY Routine 11/16/2018 PAP/HPV Routine 09/14/2018 12:00 AM EDT documented in this encounter Results * Colonoscopy (11/16/2018) Colonoscopy Normal Normal 11/16/2018 Narrative Love Morton - 11/16/2018 10:54 AM EDT Recommended 5 year follow up ( [facility] [place] Historical Provider HEALTH MAINTENANCE Final Result * Hm Pap Smear (09/14/2018 12:00 AM EDT) us Historical Provider HEALTH MAINTENANCE Final Result documented in this encounter Visit Diagnoses Not on filedocumented in this encounter Care Teams Executive Coordinator Relationship Specialty Start Date End Date Amanda Beckford ANP [address] [place] [address] PCP - General Family Medicine 07/12/20 documented as of this encounter
--- OUTSIDE RECORDS SUMMARY | 2024-10-23 12:03 | XMS_ITS | Encounter Summary ---
Author Organization [employer] Address [address] [facility] 7t [place] [address] Care Team Providers Care Small Wind Energy Installer Name Role Phone Amanda Beckford Primary Care Provider [phone] Reason for Visit * Reason Onset Date Comments other 12/28/2022 Encounter Details Date Type Department Care Team (Late st Contact Info) Description 12/28/2022 Telephone [facility] MEDICINE 230 [place], [place] [phone] Amanda Beckford ANP 230 [place] [address] other Social History Tobacco Use Types Packs/Day [...] patient for appropriate needs/services. Asked about the MAGNETIC TAPE COMPOSER OPERATOR being in the home with patient for 36 hours, they would be contacting their agency/suprv on changes with patient. She reports that their is no oversight, consumer based like [employer], however I addressed t debbi Olmos has oversight with patient's so if there is a problem the MAGNETIC TAPE COMPOSER OPERATOR could contact someone regarding patient. With all this information unsure if patient is safe to be left alone at home, may need further services ie: AFC as mentioned prior. Will refer to provider and will follow up with nurseregarding her recap on visit. * Telephone Encounter - Jane Riggs - 12/28/2022 12:12 PM EDT Tc from pt requesting status on paperwork for MAGNETIC TAPE COMPOSER OPERATOR services. Needs it as soon as possible. Pt is currently crying on the phone. States all she needs is the paperwork to be signed. Please contact pt at [phone] documented in this encounter Plan of Treatment Not on file documented as of this encounter Visit Diagnoses Not on filedocumented in this encounter Care Teams Small Wind Energy Installer Relationship Specialty Start Date End Date Amanda Beckford ANP [address] [place] [address] PCP - General Family Medicine 07/12/20 documented as of this encounter
== END 2024-10-23 11:10 | disposition home or self-care (01) ==
LOC: HO.HOS 10:37
PROVIDERS: PCP Nurse Practitioner Primary Care; Visit Provider Physician Assistant
DX: M17.0 Bilateral primary osteoarthritis of knee (principal)
CPT/HCPCS: 20610; 99204

== ENCOUNTER 2024-10-23 10:39 | Outpatient (REF) | payer MEDICAID, SELFPAY ==
--- NOTE | ~2024-10-23 | XR_ITS ---
CLINICAL HISTORY: knee pain Three views of the right knee and three views of the left knee No comparison Right knee: There is severe tricompartmental osteoarthritis. Marginal osteophytes and joint space narrowing is present, most severe involving the lateral joint compartment. No joint effusion. No fracture deformity. Left knee: There has been a previous open reduction internal fixation of the distal left femur. There is a medial l-shaped screw plate with 4 screws traversing the distal femoral metadiaphysis. No evidence of hardware loosening or fracture. No periprosthetic fracture. There is moderately severe tricompartmental osteoarthritis of the left knee, findings are most severe in the medial joint compartment. Trace joint effusion. No acute fracture deformity. IMPRESSION: Bilateral tricompartmental osteoarthritis of the knees. This document has been electronically signed by: Dimas Alejandro MD on 10/23/2024 20:12:08
== END 2024-10-23 10:40 | disposition home or self-care (01) ==
LOC: HO.HOSX 10:39
PROVIDERS: Visit Provider Physician Assistant
DX: M25.561 Pain in right knee (principal); M25.562 Pain in left knee
CPT/HCPCS: 73562

== ENCOUNTER 2024-10-23 13:02 | Outpatient (REF) | payer MEDICAID, SELFPAY ==
--- NOTE | ~2024-10-23 | US_ITS ---
EXAMINATION: US KIDNEY BILATERAL HISTORY: N20.0 - Calculus of kidney TECHNIQUE: Real-time grayscale ultrasound imaging of the kidneys was performed and images were reviewed. COMPARISON: Correlation is made with a CT of the abdomen without contrast dated 11/05/2021. Correlation is also made with the report from a CT dated 05/03/2024. The images are not available for direct comparison. FINDINGS: Right kidney: The right kidney measures 14.2 x 4.8 x 6.2 cm. Renal parenchymal echotexture and thickness are normal. There are no masses. There is no hydronephrosis or renal calculi. Left Kidney: The left kidney measures 12.8 x 5.0 x 5.5 cm. Renal parenchymal echotexture and thickness are normal. There are no masses. There is an 8 x 3 x 6 mm nonobstructing calculus at the lower pole. There is no hydronephrosis. US/US renal BI IMPRESSION: 8 x 3 x 6 mm nonobstructing calculus at the lower pole of the left kidney. Otherwise unremarkable renal ultrasound. Electronically signed by: Dylon Pedraza MD 10/23/2024 01:42 PM EDT
--- OUTSIDE RECORDS SUMMARY | 2024-10-23 14:21 | XMS_ITS | Encounter Summary ---
Author Organization [employer] Address [address] 7[address] [place] [address] Care Team Providers Care Paper Final Inspector Name Role Phone Amanda Beckford Primary Care Provider [phone] Reason for Visit * Reason Comments Med Refill Encounter Details Date Type Department Care Team ([facility] st Contact Info) Description 06/18/2022 Refill [facility] MEDICINE 230 [place], [place] [phone] Amanda Beckford ANP 230 [place], [place] [phone] Chronic pain syndrome (Primary Dx); Primary hypertension; [...] states documented in this encounter Care Teams Paper Final Inspector Relationship Specialty Start Date End Date Amanda Beckford ANP 230 [place] [address] PCP - General Family Medicine 07/12/20 documented as of this encounter
--- OUTSIDE RECORDS SUMMARY | 2024-10-23 14:21 | XMS_ITS | Encounter Summary ---
Author Organization [employer] Address [address] [facility] [address] 7[address] [place] [address] Care Team Providers Care German Professor Name Role Phone Amanda Beckford Primary Care Provider [phone] Reason for Visit * Reason Onset Date Comments Appointment Request 10/13/2023 Encounter Details Date Type Department Care Team ([facility] st Contact Info) Description 10/13/2023 Telephone [facility] MEDICINE 230 [place], [place] [phone] Amanda Beckford ANP 230 [place] [address] Appointment Request Social History Tobacco Use Types [...] encounter Miscellaneous Notes * Telephone Encounter - Lieghton Dai - 10/13/2023 3:33 PM EDT Tc [...] documented as of this encounter Care Teams German Professor Relationship Specialty Start Date End Date Amanda Beckford ANP [address] [place] [id number] PCP - General Family Medicine 07/12/20 documented as of this encounter
--- OUTSIDE RECORDS SUMMARY | 2024-10-23 14:21 | XMS_ITS | Encounter Summary ---
Author Organization [employer] Address [address] [facility] [address] 7[address] [place] [address] Care Team Providers Care Composing Room Machinist Name Role Phone Amanda Beckford Primary Care Provider [phone] Encounter Details Date Type Department Care Team (Late st Contact Info) Description 11/03/2022 Abstract [facility] MEDICINE 230 [place] [address] Amanda Beckford ANP 230 [place] [address] Social History Tobacco Use Types Packs/Day Years [...] EDT Recommended 5 year follow up ( [facility] ) Historical Provider HEALTH MAINTENANCE Final Result * Hm Pap Smear (09/14/2018 12:00 AM EDT) us Historical Provider HEALTH MAINTENANCE Final Result documented in this encounter Visit Diagnoses Not on filedocumented in this encounter Care Teams Composing Room Machinist Relationship Specialty Start Date End Date Amanda Beckford ANP [address] [place] [address] PCP - General Family Medicine 07/12/20 documented as of this encounter
--- OUTSIDE RECORDS SUMMARY | 2024-10-23 14:21 | XMS_ITS | Encounter Summary ---
Author Organization [employer] Address [address] [facility] 7t [place] [address] Care Team Providers Care Statistician Applied Name Role Phone Amanda Beckford Primary Care Provider [phone] Reason for Visit * Reason Onset Date Comments Nurse Triage 12/30/2022 Encounter Details Date Type Department Care Team (Late st Contact Info) Description 12/30/2022 Telephone [facility] MEDICINE 230 [place] [address] Amanda Beckford ANP 230 [place] [address] Nurse Triage Social History Tobacco Use Types [...] PM EDT Patient called the call center, patient representative assisted with kuwaiti translation regarding questions, patient does live alone, she does have family but they do not see each other much. Patient does have HHS, Shower bench, commode, walker, electric w/c or scooter unsure per insole presser. Patient does live in a handicapped apartment. Patient currently gets AGING DEPARTMENT SUPERVISOR 36 hrs daytime hours, 0 night time [...] 12/30/2022 2:01 PM EDT Triage call with Eachpal Planning Aide ID [id number] Pt reports a fall 2 weeks ago. [...] to see provider. AdvisedPt to come to [facility] today and be seen by provider [...] accepted this outcome Please contact pt at [phone] (Japanese speaker) documented in this encounter Plan of Treatment Not on file documented as of this encounter Visit Diagnoses Not on filedocumented in this encounter Care Teams Statistician Applied Relationship Specialty Start Date End Date Amanda Beckford ANP 230 [place] [address] PCP - General Family Medicine 07/12/20 documented as of this encounter
--- OUTSIDE RECORDS SUMMARY | 2024-10-23 14:21 | XMS_ITS | Encounter Summary ---
Author Organization [employer] Address [address] [facility] 7t [place] [address] Care Team Providers Care Data Analysis Manager Name Role Phone Amanda Beckford Primary Care Provider [phone] Reason for Visit * Reason Onset Date Comments other 12/28/2022 Encounter Details Date Type Department Care Team (Late st Contact Info) Description 12/28/[address] [facility] MEDICINE 230 [place], [place] [phone] Amanda Beckford ANP 230 [place] [address] other Social History Tobacco Use Types Packs/Day [...] patient for appropriate needs/services. Asked about the PERFORMANCE CONSULTANT being in the home with patient for 36 hours, they would be contacting their agency/suprv on changes with patient. She reports that their is no oversight, consumer based like [employer], however I addressed t debbi Olmos has oversight with patient's so if there is a problem the PERFORMANCE CONSULTANT could contact someone regarding patient. With all this information unsure if patient is safe to be left alone at home, may need further services ie: AFC as mentioned prior. Will refer to provider and will follow up with nurseregarding her recap on visit. * Telephone Encounter - Jane Riggs - 12/28/2022 12:12 PM EDT Tc from pt requesting status on paperwork for PERFORMANCE CONSULTANT services. Needs it as soon as possible. Pt is currently crying on the phone. States all she needs is the paperwork to be signed. Please contact pt at [phone] documented in this encounter Plan of Treatment Not on file documented as of this encounter Visit Diagnoses Not on filedocumented in this encounter Care Teams Data Analysis Manager Relationship Specialty Start Date End Date Amanda Beckford ANP [address] [place] [address] PCP - General Family Medicine 07/12/20 documented as of this encounter
--- OUTSIDE RECORDS SUMMARY | 2024-10-23 14:21 | XMS_ITS | Encounter Summary ---
Author Organization [employer] Address [address] [address] [place] [address] Care Team Providers Care Daycare Assistant Name Role Phone Analy Amanda ALANIS Primary Care Provider [phone] Reason for Visit * Reason Comments Med Refill Encounter Details Date Type Department Care Team (Late st Contact Info) Description 07/19/2023 Refill [facility] 230 [place], [place] [phone] Anna Marie Sapp MD 230 [place], [place] [phone] Undifferentiated connective tissue disease (CMS/HCC) Social History [...] documented as of this encounter Care Teams Daycare Assistant Relationship Specialty Start Date End Date Amanda Beckford ANP 230 [place] [address] PCP - General Family Medicine 07/12/20 documented as of this encounter
--- OUTSIDE RECORDS SUMMARY | 2024-10-23 14:21 | XMS_ITS | Clinical Summary ---
Author Organization [employer] Address [address] 7[address] [place] [address] Care Team Providers Care Case Management Rn Name Role Phone Analy Chris ALANIS Primary Care Provider [phone] Allergies No known active allergies Medications * [...] Encounters Date Type Department Care Team Description 10/23/2024 Orders Only [facility] External Provider, [facility] 10/10/2024 Refill [facility] [address] [place] [address] Chris Gonzales ANP Menopause 10/03/2024 Telephone [facility] [address] [place] [address] Amalia Tavarez, OG No Show 09/08/2024 Refill [facility] [address] [place] [address] Chris Gonzales ANP Class 3 severe obesity with serious comorbidity and body mass index (BMI) of 40.0 to 44.9 in adult, unspecified obesity type (CMS/HCC) 09/07/2024 Telephone [facility] [address] [place] [address] Bree Holman RN Blood Pressure Log Review 09/04/2024 Telephone [facility] [address] [place] [address] Chris Gonzales ANP Prior Authorization ([employer]ep[employer]) 09/01/2024 Telephone [facility] [address] [place] [address] Chris Gonzales ANP Prior Authorization 09/01/2024 Refill [facility] [address] [place] [address] Chris Gonzales ANP Polyarthralgia; Undifferentiated connective tissue disease (CMS/HCC) 08/31/2024 2:15 PM EDT Office Visit [facility] [address] [place] [address] Chris Gonzales ANP Bilateral knee swelling (Primary [...] with bilateral oophorectomy 08/31/2024 Travel 08/29/2024 Telephone [facility] [address] [place] [address] Chris Gonzales ANP 08/29/2024 Telephone [facility] [address] [place] [address] Chris Gonzales ANP chartprep 08/22/2024 Telephone [facility] [address] [place] [address] Chris Gonzales ANP order 08/03/2024 Refill [facility] [address] [place] [address] Chris Gonzales ANP Undifferentiated connective tissue disease ([facility]/HCC) 07/28/2024 1:00 PM EST Clinical Support [address] [address] Bree Holman RN Primary hypertension 07/28/2024 Travel [...] 03/18/2023, 08/24/2018 Depression Screening 12/19/2024 12/20/2023, 12/20/19 24 SDOH Screening 07/04/2025 07/04/2024 Tobacco Screening 08/31/2025 [...] Procedure Name Priority Date/Time Associated Diagnosis Comments US RENAL BI Routine 10/23/2024 1:12 PM EDT TSH W/REFLEX TO FT4 Routine 08/11/2024 1 [...] Recently Relevant to Health Maintenance Results * US RENAL BI (10/23/2024 1:12 PM EDT) Anatomical Region Laterality Modality Abdomen Ultrasound 10/23/2024 1:12 PM EDT Narrative 10/23/2024 1:44 PM EDT ? [facility] ?[address] ?[place] [address] ? Ultrasound Report ? Signed ? Patient: Colon,Sonia ?MR#: [id number] ? : 1970 ?Acct:[id number] ? Age/Sex: 54 / F ?ADM Date: 10/23/24 ? Loc: HO.US ? Attending Dr: Elke WADSWORTH ? Ordering Physician: Elke Mejia ?? Date of Service: 10/23/24 ?? Procedure(s): US renal BI ?? Accession Number(s): [id number] ? cc: Elke Mejia; CHRIS GONZALES NP ? EXAMINATION: ??US KIDNEY BILATERAL ? HISTORY: N20.0 - Calculus of kidney ? TECHNIQUE: Real-time grayscale ultrasound imaging of the kidneys was ?? performed and images were reviewed. ? COMPARISON: Correlation is made with a CT of the abdomen without ?? contrast dated 11/05/2021. Correlation is also made with the report from ?? a CT dated 05/03/2024. The images are not available for direct ?? comparison. ? FINDINGS: ? Right kidney: ??The right kidney measures 14.2 x 4.8 x 6.2 cm. ??Renal ?? parenchymal echotexture and thickness are normal. ??There are no masses. ?? There is no hydronephrosis or renal calculi. ? Left Kidney: ??The left kidney measures 12.8 x 5.0 x 5.5 cm. ??Renal ?? parenchymal echotexture and thickness are normal. ??There are no masses. ?? There is an 8 x 3 x 6 mm nonobstructing calculus at the lower pole. ?? There is no hydronephrosis. ? US/US renal BI ?? IMPRESSION: ? 8 x 3 x 6 mm nonobstructing calculus at the lower pole of the left ?? kidney. Otherwise unremarkable renal ultrasound. ? Electronically signed by: ??Dylon Pedraza MD ??10/23/2024 01:42 PM EDT ?? RP ? Dictated By: ?Dylon Pedraza MD ? Signed By: ?<Electronically signed by Dylon Pedraza MD in OV> ?10/23/24 1342 ? DD/ 1312 ? TD/TT: 10/23/24 1320 ? Pattern Technician: ? Procedure Note Donotuseinterpreter, Image - 10/23/[address] [address] Ultrasound Report Signed Patient: Leslie Camilo#: [id number] : 1970Acct:[id number] Age/Sex: 54 / FADM Date: 10/23/24 Loc: HO.US Attending Dr: Elke WADSWORTH Ordering Physician: Elke Mejia Date of Service: 10/23/24 Procedure(s): US renal BI Accession Number(s): [id number] cc: Elke Mejia; CHRIS GONZALES NP EXAMINATION: US KIDNEY BILATERAL HISTORY: N20.0 - Calculus of kidney TECHNIQUE: Real-time grayscale ultrasound imaging of the kidneys was performed and images were reviewed. COMPARISON: Correlation is made with a CT of the abdomen without contrast dated 11/05/2021. Correlation is also made with the report from a CT dated 05/03/2024. The images are not available for direct comparison. FINDINGS: Right kidney: The right kidney measures 14.2 x 4.8 x 6.2 cm. Renal parenchymal echotexture and thickness are normal. There are no masses. There is no hydronephrosis or renal calculi. Left Kidney: The left kidney measures 12.8 x 5.0 x 5.5 cm. Renal parenchymal echotexture and thickness are normal. There are no masses. There is an 8 x 3 x 6 mm nonobstructing calculus at the lower pole. There is no hydronephrosis. US/US renal BI IMPRESSION: 8 x 3 x 6 mm nonobstructing calculus at the lower pole of the left kidney. Otherwise unremarkable renal ultrasound. Electronically signed by: Dylon Pedraza MD 10/23/2024 01:42 PM EDT Dictated By: Dylon Pedraza MD Signed By: <Electronically signed by Dylon Pedraza MD in OV> 10/23/24 1342 DD/ 1312 TD/TT: 10/23/24 1320 Pattern Technician: us [facility] External Provider IMG US PROCEDURES Final Result * TSH with Reflex to Free T4 (08/11/2024 1:35 PM EST) Pathologist [facility] [place] TSH reflex Free T4 1.61 0.32 - 4.0 uIU/mL [facility] 08/11/2024 1:35 PM EST 08/11/2024 1:35 PM EST Generic External Data Provider LAB BLOOD ORDERAB LES Final Result Performing Organization Address [facility] Co de Phone Number [facility] [address] [place] [address] [phone] * Magnesium (08/11/2024 1:35 PM EST) [facility] Magnesium 2.1 1.6 - 2.6 mg/dL [facility] 08/11/2024 1:35 PM EST 08/11/2024 1:35 PM EST Generic External Data Provider LAB BLOOD ORDERAB LES Final Result Performing Organization Address [facility] Co de Phone Number [facility] [address] [place] [phone] * (ABNORMAL) Basic Metabolic Panel (08/11/2024 1:35 PM EST) [facility] Sodium 140 135 - 145 mmol/L [facility] Potassium 3.5 3.3 - 5.1 mmol/L [facility] Chloride 105 96 - 108 mmol/L [facility] Carbon Dioxide 28 22 - 29 mmol/L [facility] Anion Gap 11(L) 12 - 20 [facility] Urea Nitrogen (BUN) 17(H) 9 - 16 mg/dL [facility] Creatinine, Serum 1.08 0.5 - 1.4 mg/dL [facility] Estimated Glomerular Filt Rate 52 [facility] Comment:Chronic Kidney Disea se: Estimated GFR < 60 mL/min/[id number] Kidney Disease: Estimated GFR < 15 mL/min/1.73m2 Glucose 140(H) 60 - 115 mg/dL [facility] Calcium 9.6 8.4 - 10.2 mg/dL [facility] 08/11/2024 1:35 PM EST 08/11/2024 1:35 PM EST us Generic External Data Provider LAB BLOOD ORDERAB LES Final Result [facility] [address] [place] [phone] * HIV-1/2 Antigen and Antibodies, Fourth Generation, with Reflexes (05/18/2023 12:59 PM EST) HIV AB/AG Nonreactive Nonreactive [facility] Comment:HIV-1 p24 Ag and/or HIV-1/HIV-2 Ab not detected.A test result that is nonreactive does not exclude thepossibility of exposure to or infection with HIV-1 and/orHIV-2. Nonreactive results in this assay for individualswith prior exposure to HIV-1 and/or HIV-2 may be due toantigen and antibody levels that are below the limit ofdetection of this assay.The light HIV Ag/Ab Combo assay result andsupplemental assay results should be interpreted inconjunction with the patient's clinical presentation,history and other laboratory results. If the results areinconsistent with clinical evidence, additional testing issuggested to confirm the result. Blood Venous blood specimen / Unknown 05/18/2023 12:59 PM EST 05/18/2023 3:47 PM EST us [facility] LAB BLOOD ORDERABLES Final Resul t Performing Organization Address [facility] de Phone Number [facility] [address] [place] [address] [phone] * (ABNORMAL) Lipid Panel, Standard (05/18/2023 12:59 PM EST) Triglycerides 175(H) <150 mg/dL [facility] Comment:Desirable Triglyceri de: less than 150 mg/dLBorderline High Triglyceride 150-199 mg/dLHigh Triglyceride: 200-499 mg/dLVery High Triglyceride: greater than or equal to 5OO mg/dL Cholesterol 233(H) <200 mg/dL [facility] Comment:Desirable Cholestero l: less than 200 mg/dLBorderline High Cholesterol: 200-239 mg/dLHigh Cholesterol: greater than 239 mg/dL LDL Cholesterol Calculated 144(H) <100 mg/dL [facility] Comment:Desirable LDL: less than 100 mg/dLNear Optimal/Above Optimal LDL: 110- 129 mg/dLBorderline High LDL: 130-159 mg/dLHigh LDL: 160-189 mg/dLVery High LDL: greater than or equal to 190 mg/dL HDL Cholesterol 54 >40 mg/dL [facility] Comment:Desirable HDL: great er than 40 mg/dL Note: This HDL assay may give artificially low results in patients with liver disease. Blood Venous blood specimen / Unknown 05/18/2023 12:59 PM EST 05/18/2023 3:47 PM EST [facility] LAB BLOOD ORDERABLES Final Resul t Performing Organization Address [facility] Co de Phone Number [facility] [address] [place] [address] [phone] * BI Mammogram Screening Tomosynthesis Bilateral (03/18/2023 1:11 PM EDT) Anatomical Region Laterality Modality Breast Bilateral Mammography 03/18/2023 1:11 PM EDT Narrative 04/07/2023 9:22 PM EDT ? [facility] ? [address] ?[place] [address] ? Mammography Report ? Signed ? Patient: Colon,Sonia ?MR#: [id number] ? : 1970 ?Acct:[id number] ? Age/Sex: 52 / F ?ADM Date: 03/18/23 ? Loc: HO.MAMMO ? Attending Dr: Chris Gonzales SENIOR JAVA WEB APPLICATION DEVELOPER ? Ordering Physician: CHRIS GONZALES NP ?Results: 1Negative ? Date of Service: 03/18/23 ?Follow Up: 1 Year From Orig ?? inal Mammogram ? Procedure(s): MM tomosynthesis screening BI ?? Accession Number(s): [id number] ? cc: CHRIS GONZALES NP ? EXAMINATION: [...] 04/07/232117 ? DD/ 1311 ? TD/TT: ? Pattern Technician: ? Procedure Note Donotsampson, Image - 04/07/2023 [place] [facility] [address] [place] [address] Mammography Report Signed Patient: Leslie Camilo#: [id number] : 1970Acct:[id number] Age/Sex: 52 / FADM Date: 03/18/23 Loc: HO.MAMMO Attending Dr: Chris Gonzales NP Ordering Physician: CHRIS GONZALESesults: 1Negative Date of Service: 03/18/23Follow Up: 1 Year From Orig inal Mammogram Procedure(s): MM tomosynthesis screening BI Accession Number(s): [id number] cc: CHRIS GONZALES NP EXAMINATION: MM SCREENING [...] MD in OV> 04/07/232117 DD/ 1311 TD/TT: Pattern Technician: Chris Gonzales ANP IMG BI PROCEDURES Edited Result - Final * Hm Colonoscopy (11/16/2018) Colonoscopy Normal Normal 11/16/2018 Love Thompson - 11/16/2018 10:54 AM EDT Recommended 5 year follow up ( [facility] ) Historical Provider HEALTH MAINTENANCE Final Result * HPV mRNA E6/E7 (09/14/2018 2:07 PM EDT) HPV mRNA E6/E7 Not Detected NOT DETECTED [facility] Comment: This test was performed using the APTIMA(R) HPV Assay ([employer] This assay detects E6/E7 viral messenger RNA (mRNA) from 14 high-risk HPV types (16,18,31,33,35,39,45,51, 52,56,58,59,66,68). For additional information please refer to: http://education.Evgen.FireHost/faq/OGV683a9 (This link is being provided for informational/ educational purposes only.) The analytical performance characteristics of this assay have been determined by [employer] [place], [place]. The modifications have not been cleared or approved by the FDA. This assay has been validated pursuant to the CLIA regulations and is used for clinical purposes. Test Performed by [facility], [facility] [place], [address] [place], [place] Samy Agosto M.D., Ph.D., Director of Laboratories , CLIA [id number] Please note: ??Effective 03/02/2016, HPV testing will be performed using [employer]'s APTIMA test which targets mRNA. Detecting mRNA instead of DNA, as in older methods, offers significant improvements in specificity. 09/14/2018 2:07 PM EDT Amalia Tavarez CNM HISTORICAL/NON ORDERABLE LABS Final Result [facility] [address] [place] [phone], * Hm Pap Smear (09/14/2018 12:00 AM EDT) us Historical Provider MD HEALTH MAINTENANCE Final Result from Last 3 Months or Most Recently Relevant to Health Maintenance Insurance [employer] Care Teams Case Management Rn Relationship Specialty Start Date End Date Chris Gonzales ANP [address] [place] [phone] PCP - General Family Medicine 07/12/20
--- OUTSIDE RECORDS SUMMARY | 2024-10-23 14:21 | XMS_ITS | Encounter Summary ---
Author Organization [employer] Address [address] [place] [address] Care Team Providers Care Financial Investment Adviser Name Role Phone Amanda Beckford Primary Care Provider [phone] Reason for Visit * Reason Onset Date Comments Med Refill 07/19/2023 Encounter Details Date Type Department Care Team (Late st Contact Info) Description 07/19/2023 Telephone [facility] [address] [place], [place] [phone] Amanda Beckford ANP [address] [place], [place] [phone] Med Refill Social History Tobacco Use Types [...] 200 MG tablet To be sent to: [facility] [place], [place] - [address] [facility] documented in this encounter Plan of Treatment Not on file documented as of this encounter Visit Diagnoses Not on filedocumented in this encounter Additional Health Concerns Assessment Noted Time PHQ-9 Depression Total Score: 12 023 2:07 PM EDT documented as of this encounter Care Teams Financial Investment Adviser Relationship Specialty Start Date End Date Amanda Beckford ANP [address] [place] [address] PCP - General Family Medicine 07/12/20 documented as of this encounter
--- OUTSIDE RECORDS SUMMARY | 2024-10-23 14:21 | XMS_ITS | Encounter Summary ---
Author Organization [employer] Address [address] [place] [address] Care Team Providers Care Automotive Sales Associate Name Role Phone Chris Gonzales ZEKE Primary Care Provider Encounter Details Date Type Department Care Team (Late st Contact Info) Description 10/23/2024 Orders Only [facility] External Provider, [facility] Social History Tobacco Use Types Packs/Day Years [...] RENAL BI Routine 10/23/2024 1:12 PM EDT documented in this encounter Results * US RENAL BI (10/23/2024 1:12 PM EDT) Anatomical Region Laterality Modality Abdomen Ultrasound 10/23/2024 1:12 PM EDT Narrative 10/23/2024 1:44 PM EDT ? [facility] ?[address] ?[place] [address] ? Ultrasound Report ? Signed ? Patient: Colon,Sonia ?MR#: [id number] ? : 1970 ?Acct:[id number] ? Age/Sex: 54 / F ?ADM Date: 10/23/24 ? Loc: HO.US ? Attending Dr: Elke WADSWORTH ? Ordering Physician: Elke Mejia ?? Date of Service: 10/23/24 ?? Procedure(s): US renal BI ?? Accession Number(s): [id number] ? cc: Elke Mejia; CHRIS GONZALES NP [...] ??Dylon Pedraza MD ??10/23/2024 01:42 PM EDT ? Dictated By: ?Dylon Pedraza MD ? Signed By: ?<Electronically signed by Dylon Pedraza MD in OV> ?10/23/24 1342 ? DD/ 1312 ? TD/TT: 10/23/24 1320 ? Cement Conveyor Operator: ? Procedure Note Hemanth Rust - 10/23/2024 [place] [address] Ultrasound Report Signed Patient: Leslie Camilo#: [id number] : 1970Acct:[id number] Age/Sex: 54 / FADM Date: 10/23/24 Loc: HO.US Attending Dr: Elke WADSWORTH Ordering Physician: Elke Mejia Date of Service: 10/23/24 Procedure(s): US renal BI Accession Number(s): [id number] cc: Elke Mejia; CHRIS GONZALES NP EXAMINATION: [...] Dylon Pedraza MD 10/23/2024 01:42 PM EDT RP Dictated By: Dylon Pedraza MD Signed By: <Electronically signed by Dylon Pedraza MD in OV> 10/23/24 1342 DD/ 1312 TD/TT: 10/23/24 1320 Cement Conveyor Operator: [facility] External Provider IMG US PROCEDURES Final Result documented in this encounter Visit Diagnoses Not on filedocumented in this encounter Additional Health Concerns Assessment Noted Time PHQ-9 Depression Total Score: 21 024 2:26 PM EDT documented as of this encounter Care Teams Automotive Sales Associate Relationship Specialty Start Date End Date Chris Gonzales ANP [address] [place] [phone] PCP - General Family Medicine 07/12/20 documented as of this encounter
--- OUTSIDE RECORDS SUMMARY | 2024-10-23 14:21 | XMS_ITS | Encounter Summary ---
Author Organization [employer] Address [address] [place] [address] Care Team Providers Care Substitute Teacher Name Role Phone Analy Amanda ALANIS Primary Care Provider [phone] Reason for Visit * Reason Comments Med Refill Encounter Details Date Type Department Care Team (Late st Contact Info) Description 07/19/2023 Refill [facility] [address] [facility] [place], [place] [phone] Lis Cortez FNP Chronic pain syndrome Social [...] documented as of this encounter Care Teams Substitute Teacher Relationship Specialty Start Date End Date Amanda Beckford ANP [address] [place] [phone] PCP - General Family Medicine 07/12/20 documented as of this encounter
--- OUTSIDE RECORDS SUMMARY | 2024-10-23 14:21 | XMS_ITS | Encounter Summary ---
Author Organization [employer] Address [address] [place] [address] Care Team Providers Care Cheese Cutter Name Role Phone Analy Amanda ALANIS Primary Care Provider [phone] Reason for Visit * Reason Comments Med Refill Encounter Details Date Type Department Care Team (Late st Contact Info) Description 07/19/2023 Refill [facility] [address] [facility] [place], [place] [phone] Lis Cortez FNP Chronic pain syndrome Social [...] documented as of this encounter Care Teams Cheese Cutter Relationship Specialty Start Date End Date Amanda Beckford ANP [address] [place] [phone] PCP - General Family Medicine 07/12/20 documented as of this encounter
== END 2024-10-23 13:03 | disposition home or self-care (01) ==
LOC: HO.US 13:02
PROVIDERS: PCP Nurse Practitioner Primary Care; Visit Provider Nurse Practitioner Family
DX: M17.0 Bilateral primary osteoarthritis of knee (principal); N20.0 Calculus of kidney
CPT/HCPCS: 20610; 73562; 76775; 99212; J1010; J2003

== ENCOUNTER → 2024-10-23 13:05 | Outpatient (BNV) | payer MEDICAID, SELFPAY | PROVIDERS: PCP Nurse Practitioner Primary Care; Visit Provider Radiology Diagnostic Radiology | DX: N20.0 Calculus of kidney (principal); M17.0 Bilateral primary osteoarthritis of knee | CPT/HCPCS: 73562; 76775 ==

== ENCOUNTER 2024-10-30 11:50 | Outpatient (AMB) | payer MEDICAID, SELFPAY ==
--- NOTE | 2024-10-30 11:50 | MHC.OFFVIS ---
Intake Visit Reasons: 2m/US(set) Tool And Die Machinist Required: Yes Tool And Die Machinist Name: Palmer [id number] Allergies hydroxychloroquine Allergy (Verified 10/30/24 11:53) Unknown Medication List - Last Reconciled 10/30/24 by ANANTH Mcmillan celecoxib 200 mg PO DAILY duloxetine 60 mg PO QAM estradiol 1 patch transdermal 2XW famotidine (Pepcid) 20 mg PO BEDTIME gabapentin 300 mg PO BID hydrochlorothiazide 25 mg PO DAILY hydroxychloroquine (Plaquenil) 200 mg PO BID lisinopril 20 mg PO DAILY pantoprazole 40 mg PO DAILY quetiapine 300 mg PO BEDTIME HPI Comments Details: Sonia is a very pleasant 54-year-old Mongolian-speaking female patient of Dr. Beckford. She has a past medical history of lupus, arthritis, anemia, anxiety, depression, and hypertension. She is being followed up on today via telehealth for her history of nephrolithiasis. Of note, patient was seen approximately 2 months ago as a new patient at which time a renal ultrasound was ordered for further assessment evaluation. These results were reviewed with the patient and her CHILD ADVOCATE worker Ralph during today's visit. 11/12 bilateral kidneys are normal in echotexture and thickness. There are no hydronephrosis or renal masses noted bilaterally. There is an 8 x 3 x 6 mm nonobstructing calculus at the lower pole of the left kidney otherwise unremarkable renal ultrasound. In discussion with the patient today she does report intermittent episodes of left-sided flank pain. We discussed variability in nephrolithiasis noted on most recent renal ultrasound versus CT from 05/14 noting 2 mm nonobstructing left renal calculus. We discussed obtaining CT KUB verses KUB for further assessment evaluation. She otherwise denies any bothersome urinary issues. She denies urinary urgency, urinary frequency, incontinence, nocturia, hematuria, dysuria, foul smelling urine, changes to urinary stream, fever, and or chills. She is happy with her current voiding parameters. We discussed further intervention to include ESWL versus ureteroscopy versus surveillance monitoring. Will obtain KUB for further assessment evaluation. She otherwise offers no other issues or concerns at this time. [facility] Medical History Lupus Arthritis Anemia History of anxiety Depression Personal history of tuberculosis HTN (hypertension) Surgical History Hx of total hysterectomy with removal of both tubes and ovaries Hx of dilation and curettage History of esophagogastroduodenoscopy (EGD) H/O colonoscopy Hx of knee surgery Hx of lithotripsy Hx of appendectomy Social History Alcohol intake: never Years Smoked: 36 Substance Use Type: Marijuana Review of Systems Const All systems reviewed & are unremarkable except as noted in HPI and below Physical Exam Const General: cooperative Limitations: language barrier Resp Effort & Inspection: able to speak in complete sentences Psych Speech and movement: Clear speech present Attitude: cooperative Thought content: Normal thought content present Insight: Fair insight present (Psych) Judgement: Fair judgement present (Psych) Telehealth Telehealth Telehealth Platform: Telephone Location of provider rendering services: practice address Location of patient: address on file Patient Identification confirmed using: Name, : Yes Telehealth method: voice only Patient verbally consented to treatment: Yes Patient verbally consented to billing insurance company: Yes Patient informed of any privacy concerns related to visit: Yes Minutes spent on Phone/Video with Pt.: 15 Results Reviewed Results Reviewed: Date of Service: 10/23/24 Procedure(s): US renal BI FINDINGS: Right kidney: The right kidney measures 14.2 x 4.8 x 6.2 cm. Renal parenchymal echotexture and thickness are normal. There are no masses. There is no hydronephrosis or renal calculi. Left Kidney: The left kidney measures 12.8 x 5.0 x 5.5 cm. Renal parenchymal echotexture and thickness are normal. There are no masses. There is an 8 x 3 x 6 mm nonobstructing calculus at the lower pole. There is no hydronephrosis. IMPRESSION: 8 x 3 x 6 mm nonobstructing calculus at the lower pole of the left kidney. Otherwise unremarkable renal ultrasound. Assessment & Plan Assessment & Plan (1) Nephrolithiasis: Code(s): N20.0 - Calculus of kidney Category: Medical (2) Flank pain: Code(s): R10.9 - Unspecified abdominal pain Category: Medical Plan Recent renal imaging results reviewed with the patient today; as noted above. We discussed obtaining CT KUB to verses KUB for further assessment evaluation. She denies any bothersome urinary issues. We discussed at length the importance of adequate hydration relation to nephrolithiasis as overall health and well-being. We discussed potential near future surgical intervention given patient with intermittent left-sided flank pain however will obtain KUB prior We discussed ureteroscopy verses lithotripsy versus surveillance monitoring We discussed worsening symptoms. Will obtain KUB Follow-up in 1-2 weeks with imaging to be completed prior or sooner with any issues, concerns, and or questions. Orders: Orders XR KUB Today N20.0 - Calculus of kidney Patient Instructions: The patient had an opportunity to ask questions regarding the treatment plan. All questions were answered. Physical exam, labs, and imaging were discussed and reviewed in detail. As well as risks, benefits, and discussion of treatment choices. No major barriers to understanding were identified. The patient expressed understanding and agreement with the above treatment plan. The patient was made aware they should contact our office by phone for worsening of their current condition, the appearance of new symptoms, or with any questions or concerns. Compliance is encouraged with any medications and follow up testing that is ordered. It is a privilege to be allowed the opportunity to participate in? your urological care.? Again, if you have any questions or concerns If you have any questions or concerns please do not hesitate to contact me. The office is [phone]. This note is constructed using voice recognition software. While every effort has been made to ensure accuracy after school program teacher errors may have been included. Yours sincerely, ANANTH Mcmillan Coding Level of Care Code Tele Est Pt Level 3 (84048) Diagnoses Nephrolithiasis N20.0 Flank pain R10.9
--- OUTSIDE RECORDS SUMMARY | 2024-10-30 12:30 | XMS_ITS | Encounter Summary ---
Author Organization [employer] Address [address] [place] [address] Care Team Providers Care Athletic Director Name Role Phone Amanda Beckford Primary Care Provider [phone] Reason for Visit * Reason Comments Med Refill Encounter Details Date Type Department Care Team ([facility] st Contact Info) Description 06/18/[address] [facility] MEDICINE [address] [place], [place] [phone] Amanda Beckford ANP [address] [place] [address] Chronic pain syndrome (Primary Dx); Primary hypertension; [...] Recorded In the last 10 days, have yo tray been in contact with someone who was [...] states documented in this encounter Care Teams Athletic Director Relationship Specialty Start Date End Date Amanda Beckford ANP [address] [place] [address] PCP - General Family Medicine 07/12/20 documented as of this encounter
--- OUTSIDE RECORDS SUMMARY | 2024-10-30 12:30 | XMS_ITS | Encounter Summary ---
Author Organization [employer] Address [address] [place] [address] Care Team Providers Care Director Of Architecture Name Role Phone Amanda Beckford Primary Care Provider [phone] Reason for Visit * Reason Onset Date Comments Nurse Triage 12/30/2022 Encounter Details Date Type Department Care Team (Late st Contact Info) Description 12/30/2022 Telephone [facility] MEDICINE [address] [place] [address] Amanda Beckford ANP [address] [place] [address] Nurse Triage Social History Tobacco Use Types [...] Miscellaneous Notes * Telephone Encounter - Saritha CALLY Rodriguez - 01/06/2023 1:00 PM EDT Patient called the call center, insurance claims representative assisted with austrian translation regarding questions, patient does live alone, she does have family but they do not see each other much. Patient does have HHS, Shower bench, commode, walker, electric w/c or scooter unsure per glass setter. Patient does live in a handicapped apartment. 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 [...] and Pt would like to see provider. Advised Pt to come to [facility] today and be seen by provider [...] accepted this outcome Please contact pt at [phone] (German speaker) documented in this encounter Plan of Treatment Not on file documented as of this encounter Visit Diagnoses Not on filedocumented in this encounter Care Teams Director Of Architecture Relationship Specialty Start Date End Date Amanda Beckford ANP [address] [place] [address] PCP - General Family Medicine 07/12/20 documented as of this encounter
--- OUTSIDE RECORDS SUMMARY | 2024-10-30 12:30 | XMS_ITS | Encounter Summary ---
Author Organization [employer] Address [address] [place] [address] Care Team Providers Care Tool Programmer Name Role Phone Analy Amanda ALANIS Primary Care Provider [phone] Reason for Visit * Reason Comments Med Refill Encounter Details Date Type Department Care Team ([facility] st Contact Info) Description 07/19/2023 Refill [facility] [address] [place], [place] [phone] Anna Marie Sapp MD [address] [place], [place] [phone] Undifferentiated connective tissue disease (CMS/HCC) Social History [...] documented as of this encounter Care Teams Tool Programmer Relationship Specialty Start Date End Date Amnada Beckford ANP [address] [place] [address] PCP - General Family Medicine 07/12/20 documented as of this encounter
--- OUTSIDE RECORDS SUMMARY | 2024-10-30 12:30 | XMS_ITS | Encounter Summary ---
Author Organization [employer] Address [address] [place] [address] Care Team Providers Care Digital Content Producer Name Role Phone Amanda Beckford Primary Care Provider [phone] Encounter Details Date Type Department Care Team (Late st Contact Info) Description 11/03/2022 Abstract [facility] MEDICINE [address] [place] [address] Amanda Beckford ANP [address] [place], [place] [phone] Social History Tobacco Use Types Packs/Day Years [...] EDT Recommended 5 year follow up ( [facility] ) us Historical Provider HEALTH MAINTENANCE Final Result * Hm Pap Smear (09/14/2018 12:00 AM EDT) us Historical Provider HEALTH MAINTENANCE Final Result documented in this encounter Visit Diagnoses Not on filedocumented in this encounter Care Teams Digital Content Producer Relationship Specialty Start Date End Date Amanda Beckford ANP [address] [place] [address] PCP - General Family Medicine 07/12/20 documented as of this encounter
--- OUTSIDE RECORDS SUMMARY | 2024-10-30 12:30 | XMS_ITS | Encounter Summary ---
Author Organization [employer] Address [address] [place] [address] Care Team Providers Care Public Relations Manager Name Role Phone Amanda Beckford Primary Care Provider [phone] Reason for Visit * Reason Onset Date Comments Med Refill 07/19/2023 Encounter Details Date Type Department Care Team ([facility] st Contact Info) Description 07/19/2023 Telephone [facility] MEDICINE [address] [place], [place] [phone] Amanda Beckford ANP [address] [place], [place] [phone] Med Refill Social History Tobacco Use Types [...] 200 MG tablet To be sent to: [facility] - [place], [place] - [address] [facility] documented in this encounter Plan of Treatment Not on file documented as of this encounter Visit Diagnoses Not on filedocumented in this encounter Additional Health Concerns Assessment Noted Time PHQ-9 Depression Total Score: 12 023 2:07 PM EDT documented as of this encounter Care Teams Public Relations Manager Relationship Specialty Start Date End Date Amanda Beckford ANP [address] [facility] [place] [address] PCP - General Family Medicine 07/12/20 documented as of this encounter
--- OUTSIDE RECORDS SUMMARY | 2024-10-30 12:30 | XMS_ITS | Encounter Summary ---
Author Organization [employer] Address [address] [place] [address] Care Team Providers Care Vegetable Cook Name Role Phone Analy Amanda ALANIS Primary Care Provider [phone] Reason for Visit * Reason Comments Med Refill Encounter Details Date Type Department Care Team (Late st Contact Info) Description 07/19/2023 Refill [facility] [address] [place], [place] [phone] Lis Cortez FNP Chronic pain syndrome Social [...] documented as of this encounter Care Teams Vegetable Cook Relationship Specialty Start Date End Date Amanda Beckford ANP [address] [place] [address] PCP - General Family Medicine 07/12/20 documented as of this encounter
--- OUTSIDE RECORDS SUMMARY | 2024-10-30 12:30 | XMS_ITS | Encounter Summary ---
Author Organization [employer] Address [address] [place] [address] Care Team Providers Care Comber Setter Name Role Phone Amanda Beckford Primary Care Provider Reason for Visit * Reason Onset Date Comments other 12/28/2022 Encounter Details Date Type Department Care Team ([facility] st Contact Info) Description 12/28/2022 Telephone [facility] MEDICINE [address] [place], [place] [phone] Amanda Beckford ANP [address] [place], [place] [phone] other Social History Tobacco Use Types Packs/Day [...] 12/29/2022 12:33 PM EDT Renetta carmen/ Maryann Frausto RN @ [facility] regarding patient's renewal on [...] patient for appropriate needs/services. Asked about the SECURITY TEAM LEAD being in the home with patient for 36 hours, they would be contacting their agency/suprv on changes with patient. She reports that their is no oversight, consumer based like [facility], however I addressed t debbi Olmos has oversight with patient's so if there is a problem the SECURITY TEAM LEAD could contact someone regarding patient. With all this information unsure if patient is safe to be left alone at home, may need further services ie: [facility] as mentioned prior. Will refer to provider and will follow up with nurseregarding her recap on visit. * Telephone Encounter - Jane Riggs - 12/28/2022 12:12 PM EDT Tc from pt requesting status on paperwork for SECURITY TEAM LEAD services. Needs it as soon as possible. Pt is currently crying on the phone. States all she needs is the paperwork to be signed. Please contact pt at [phone] documented in this encounter Plan of Treatment Not on file documented as of this encounter Visit Diagnoses Not on filedocumented in this encounter Care Teams Comber Setter Relationship Specialty Start Date End Date Amanda Beckford ANP [address] [place] [address] PCP - General Family Medicine 07/12/20 documented as of this encounter
--- OUTSIDE RECORDS SUMMARY | 2024-10-30 12:30 | XMS_ITS | Encounter Summary ---
Author Organization [employer] Address [address] [place] [address] Care Team Providers Care Seedling Puller Name Role Phone Analy Amanda ALANIS Primary Care Provider [phone] Reason for Visit * Reason Comments Med Refill Encounter Details Date Type Department Care Team (Late st Contact Info) Description 07/19/2023 Refill [facility] [address] [place], [place] [phone] Lis Cortez FNP Chronic pain syndrome Social [...] documented as of this encounter Care Teams Seedling Puller Relationship Specialty Start Date End Date Amanda Beckford ANP [address] [place] [address] PCP - General Family Medicine 07/12/20 documented as of this encounter
--- OUTSIDE RECORDS SUMMARY | 2024-10-30 12:30 | XMS_ITS | Encounter Summary ---
Author Organization [employer] Address [address] [place] [address] Care Team Providers Care Junior Underwriter Name Role Phone Amanda Beckford Primary Care Provider [phone] Reason for Visit * Reason Comments Med Refill Encounter Details Date Type Department Care Team ([facility] st Contact Info) Description 10/27/2024 Refill [facility] MEDICINE [address] [place], [place] [phone] Amanda Beckford ANP [address] [place], [place] [phone] Undifferentiated connective tissue disease (CMS/HCC) Social History [...] documented as of this encounter Care Teams Junior Underwriter Relationship Specialty Start Date End Date Amanda Beckford ANP [address] [place] [address] PCP - General Family Medicine 07/12/20 documented as of this encounter
--- OUTSIDE RECORDS SUMMARY | 2024-10-30 12:31 | XMS_ITS | Clinical Summary ---
Author Organization [employer] Address [address] [place] [address] Care Team Providers Care Chief Of Field Operations Name Role Phone Analy Chris ALANIS Primary Care Provider [phone] Allergies No known active allergies Medications * [...] twice weekly 24 patch 10/11/19 25 Active celecoxib (CeleBREX) 200 MG capsuleIndicati ons:Undifferent iated connective tissue disease (CMS/HCC) TAKE 1 CAPSULE BY MOUTH EVERY DAY 30 capsule 2 10/28/19 25 Active estradiol (Minivelle) 0.05 MG/24HRIndicati ons:Menopause Use one patch twice weekly 24 patch 03/22/20 24 025 Discontinued(Re order (will not trigger notification to Pharmacy)) celecoxib (CeleBREX) 200 MG capsuleIndicati ons:Undifferent iated connective tissue disease (CMS/HCC) TAKE 1 CAPSULE BY MOUTH EVERY DAY 30 capsule 2 08/03/19 25 025 Discontinued Active Problems Problem Noted Date [...] Encounters Date Type Department Care Team Description 10/27/2024 Refill [facility] [address], [place] [phone] Chris Gonzales ANP Undifferentiated connective tissue disease (CMS/HCC) 10/23/2024 Orders Only [facility] External Provider, [facility] 10/10/2024 Refill [facility] [address] [place], [place] [phone] Chris Gonzales ANP Menopause 10/03/2024 Telephone [facility] [address], [place] [phone] Amalia Tavarez CNM No Show 09/08/2024 Refill [facility] [address], [place] [phone] Chris Gonzales ANP Class 3 severe obesity with serious comorbidity and body mass index (BMI) of 40.0 to 44.9 in adult, unspecified obesity type (CMS/HCC) 09/07/2024 Telephone [facility] [address], [place] [phone] Bree Holman RN Blood Pressure Log Review 09/04/2024 Telephone [facility] [address] [place] [phone] Chris Gonzales ANP Prior Authorization ([employer]) 09/01/[address] [address] Chris Gonzales ANP Prior Authorization 09/01/[address] [address] Chris Gonzales ANP Polyarthralgia; Undifferentiated connective tissue disease (CMS/HCC) 08/31/2024 2:15 PM EDT Office Visit [address] [address] Chris Gonzales ANP Bilateral knee swelling (Primary [...] with bilateral oophorectomy 08/31/2024 Travel 08/29/2024 Telephone [facility] [address] [place] [address] Chris Gonzales ANP 08/29/2024 Telephone [facility] [address] [place] [address] Chris Gonzales ANP chartprep 08/22/[address] [address] Chris Gonzales ANP order 08/03/[address] [address] Chris Gonzales ANP Undifferentiated connective tissue disease (CMS/HCC) from Last 3 Months Immunizations Name Administration [...] EDT Narrative 10/23/2024 1:44 PM EDT ? [facility] ?[address] ?[place] [address] ? Ultrasound Report ? Signed ? Patient: Colon,Sonia ?MR#: [id number] ? : 1970 ?Acct:[id number] ? Age/Sex: 54 / F ?ADM Date: 10/23/24 ? Loc: HO.US ? Attending Dr: Elke WADSWORTH ? Ordering Physician: Elke Mejia ?? Date of Service: 10/23/24 ?? Procedure(s): US renal BI ?? Accession Number(s): [id number] ? cc: Elke Mejia; CHRIS GONZALES NP [...] DD/ 1312 ? TD/TT: 10/23/24 1320 ? Floor Scraper: ? Procedure Note Donottyinterpreter, Image - 10/23/2024 [place] [address] Ultrasound Report Signed Patient: Leslie Camilo#: [id number] : 1970Acct:[id number] Age/Sex: 54 / FADM Date: 10/23/24 Loc: .US Attending Dr: Elke WADSWORTH Ordering Physician: Elke Mejia Date of Service: 10/23/24 Procedure(s): US renal BI Accession Number(s): [id number] cc: Elke Mejia; CHRIS GONZALES NP EXAMINATION: [...] 10/23/24 1342 DD/ 1312 TD/TT: 10/23/24 1320 Floor Scraper: us [facility] External Provider IMG US PROCEDURES Final Result * TSH with Reflex to Free T4 (08/11/2024 1:35 PM EST) Pathologist [facility] TSH reflex Free T4 1.61 0.32 - 4.0 uIU/mL [facility] 08/11/2024 1:35 PM EST 08/11/2024 1:35 PM EST Generic External Data Provider LAB BLOOD ORDERAB LES Final Result Performing Organization Address [facility]/ZIP Co de Phone Number [facility] [address] [place] [phone] * Magnesium (08/11/2024 1:35 PM EST) [facility] Magnesium 2.1 1.6 - 2.6 mg/dL [facility] 08/11/2024 1:35 PM EST 08/11/2024 1:35 PM EST Generic External Data Provider LAB BLOOD ORDERAB LES Final Result Performing Organization Address [facility] Co de Phone Number [facility] [address] [place] [phone] * (ABNORMAL) Basic Metabolic Panel (08/11/2024 1:35 PM EST) Pathologist [facility] Sodium 140 135 - 145 mmol/L [facility] Potassium 3.5 3.3 - 5.1 mmol/L [facility] Chloride 105 96 - 108 mmol/L [facility] Carbon Dioxide 28 22 - 29 mmol/L [facility] Anion Gap 11(L) 12 - 20 [facility] Urea Nitrogen (BUN) 17(H) 9 - 16 mg/dL [facility] Creatinine, Serum 1.08 0.5 - 1.4 mg/dL [facility] Estimated Glomerular Filt Rate 52 [facility] Comment:Chronic Kidney Disea se: Estimated GFR < 60 mL/min/1.42k6Mrlwbh Kidney Disease: Estimated GFR < 15 mL/min/1.73m2 Glucose 140(H) 60 - 115 mg/dL [facility] Calcium 9.6 8.4 - 10.2 mg/dL [facility] 08/11/2024 1:35 PM EST 08/11/2024 1:35 PM EST us Generic External Data Provider LAB BLOOD ORDERAB LES Final Result [facility] [address] [place] [phone] * HIV-1/2 Antigen and Antibodies, Fourth Generation, with Reflexes (05/18/2023 12:59 PM EST) HIV AB/AG Nonreactive Nonreactive [facility] Comment:HIV-1 p24 Ag and/or HIV-1/HIV-2 Ab not detected.A test result that is nonreactive does not exclude thepossibility of exposure to or infection with HIV-1 and/orHIV-2. Nonreactive results in this assay for individualswith prior exposure to HIV-1 and/or HIV-2 may be due toantigen and antibody levels that are below the limit ofdetection of this assay.The [employer] HIV Ag/Ab Combo assay result andsupplemental assay results should be interpreted inconjunction with the patient's clinical presentation,history and other laboratory results. If the results areinconsistent with clinical evidence, additional testing issuggested to confirm the result. Blood Venous blood specimen / Unknown 05/18/2023 12:59 PM EST 05/18/2023 3:47 PM EST Chris Gonzales ANP LAB BLOOD ORDERABLES Final Resul t Performing Organization Address [facility] Co de Phone Number [facility] [address] [place] [phone] * (ABNORMAL) Lipid Panel, Standard (05/18/2023 12:59 PM EST) Triglycerides 175(H) <150 mg/dL [facility] Comment:Desirable Triglyceri de: less than 150 mg/dLBorderline High Triglyceride 150-199 mg/dLHigh Triglyceride: 200-499 mg/dLVery High Triglyceride: greater than or equal to 5OO mg/dL Cholesterol 233(H) <200 mg/dL [facility] Comment:Desirable Cholestero l: less than 200 mg/dLBorderline High Cholesterol: 200-239 mg/dLHigh Cholesterol: greater than 239 mg/dL LDL Cholesterol Calculated 144(H) <100 mg/dL [facility] Comment:Desirable LDL: less than [...] ORDERABLES Final Resul t Performing Organization Address [facility]/ZIP Co de Phone Number [facility] [address] [place] [phone] * BI Mammogram Screening Tomosynthesis Bilateral (03/18/2023 1:11 PM EDT) Anatomical Region Laterality Modality Breast Bilateral Mammography 03/18/2023 1:11 PM EDT Narrative 04/07/2023 9:22 PM EDT ? [facility] ? [address] ?[place] [address] ? Mammography Report ? Signed ? Patient: Colon,Sonia ?MR#: [id number] ? : 1970 ?Acct:[id number] ? Age/Sex: 52 / F ?ADM Date: 03/18/23 ? Loc: HO.MAMMO ? Attending Dr: Chris Gonzales BOX ORDER PERSON ? Ordering Physician: CHRIS GONZALES NP ?Results: 1Negative ? Date of Service: 03/18/23 ?Follow Up: 1 Year From Orig ?? inal Mammogram ? Procedure(s): MM tomosynthesis screening BI ?? Accession Number(s): [id number] ? cc: CHRIS GONZALES NP ? EXAMINATION: [...] by Mahi Birmingham MD in OV> ? 10/8 ? DD/ 1311 ? TD/TT: ? Floor Scraper: ? Procedure Note Dondeniseter, Image - 04/07/2023 [place] [facility] [address] [place] [address] Mammography Report Signed Patient: Leslie Camilo#: [id number] : 1970Acct:[id number] Age/Sex: 52 / FADM Date: 03/18/23 Loc: HO.MAMMO Attending Dr: Chris Gonzales NP Ordering Physician: CHRIS GONZALESesults: 1Negative Date of Service: 03/18/23Follow Up: 1 Year From Orig inal Mammogram Procedure(s): MM tomosynthesis screening BI Accession Number(s): [id number] cc: CHRIS GONZALES NP EXAMINATION: MM SCREENING [...] in OV> 04/07/23 2118 DD/ 1311 TD/TT: Floor Scraper: [facility] ANP IMG BI PROCEDURES Edited Result - Final * Hm Colonoscopy (11/16/2018) Colonoscopy Normal Normal 11/16/2018 Love Thompson - 11/16/2018 10:54 AM EDT Recommended 5 year follow up ( [facility] [place] ) [facility] Provider HEALTH MAINTENANCE Final Result * HPV mRNA E6/E7 (09/14/2018 2:07 PM EDT) HPV mRNA E6/E7 Not Detected NOT DETECTED [facility] Comment: This test was performed using the APTIMA(R) HPV Assay ([employer] This assay detects E6/E7 viral messenger RNA (mRNA) from 14 high-risk HPV types (16,18,31,33,35,39,45,51, 52,56,58,59,66,68). For additional information please refer to: http://education.Customcells.otelz.com/faq/MWW759m8 (This link is being provided for informational/ educational purposes only.) The analytical performance characteristics of this assay have been determined by [employer] [place], [place]. The modifications have not been cleared or approved by the FDA. This assay has been validated pursuant to the CLIA regulations and is used for clinical purposes. Test [facility], [employer] [place], [address] [place] [address] Smay Agosto M.D., Ph.D., Director of Laboratories , CLIA [id number] Please note: ??Effective 03/02/2016, HPV testing will be performed using [employer]'s APTIMA test which targets mRNA. Detecting mRNA instead of DNA, as in older methods, offers significant improvements in specificity. 09/14/2018 2:07 PM EDT us Amalia Tavarez CNM HISTORICAL/NON ORDERABLE LABS Final Result [facility] [address] * Hm Pap Smear (09/14/2018 12:00 AM EDT) us Historical Provider MD HEALTH MAINTENANCE Final Result from Last 3 Months or Most Recently Relevant to Health Maintenance Insurance * Guarantor: Sonia Camilo Account Type Relation to Patient Date of Phone Billing Address Personal/Family Self [phone] Care Teams Chief Of Field Operations Relationship Specialty Start Date End Date Chris Gonzales ANP [address] [place] [address] PCP - General Family Medicine 07/12/20
--- OUTSIDE RECORDS SUMMARY | 2024-10-30 12:31 | XMS_ITS | Encounter Summary ---
Author Organization [employer] Address [address] [place] [address] Care Team Providers Care Senior Executive Compensation Analyst Name Role Phone Amanda Beckford Primary Care Provider [phone] Reason for Visit * Reason Onset Date Comments Appointment Request 10/13/2023 Encounter Details Date Type Department Care Team ([facility] st Contact Info) Description 10/13/2023 Telephone [facility] [address] [place], [place] [phone] Amanda Beckford ANP [address] [place], [place] [phone] Appointment Request Social History Tobacco Use Types [...] the past 12 months, has t he [employer], gas, oil or water company threatened to [...] as of this encounter Care Teams Senior Executive Compensation Analyst Relationship Specialty Start Date End Date Amanda Beckford ANP [address] [place] [phone] PCP - General Family Medicine 07/12/20 documented as of this encounter
== END 2024-10-30 12:57 | disposition home or self-care (01) ==
LOC: HO.HUSH 11:50
PROVIDERS: PCP Nurse Practitioner Primary Care; Visit Provider Nurse Practitioner Family
DX: N20.0 Calculus of kidney (principal); R10.9 Unspecified abdominal pain
CPT/HCPCS: 99213

== ENCOUNTER 2024-11-03 11:32 | Outpatient (AMB) | payer MEDICAID, SELFPAY ==
--- NOTE | 2024-11-03 11:42 | A.OFFVIS_ITS ---
Vital Signs 11/03/24 11:47 Height 5 ft 4 in Weight 252 lb 8 oz BMI 43.3 BP 178/102 H Blood Pressure Location Rt brachial Position Sitting Pulse 84 Pulse Source Pulse Oximeter Pulse Oximetry (%) 99 Oxygen Delivery Method Room Air Intake Visit Reasons: Arthritis of both knees Director Intelligence Analysis Programs Required: Yes Director Intelligence Analysis Programs Language: Kaiako Kohanga [employer] Services: Director Intelligence Analysis Programs Offered & Declined Director Intelligence Analysis Programs Name: Krys- Niece/[employer] Information Interpreted: non-clinical & clinical Accompanied by: Nephew or Niece Allergies hydroxychloroquine Allergy (Verified 11/03/24 11:48) Unknown HPI Comments Details: The patient is a 54 year old female presenting with chronic bilateral knee pain. She was initially seen in our office in 2022 for knee pain but was hesitant to interventional treatments. The pain began several years ago, following a history of left knee replacement done around seven years ago. Her right knee pain is linked to an old injury associated with a fall in her youth which led to additional surgery. X-rays from October 23 revealed moderate to severe bilateral tricompartmental osteoarthritis. Currently, the patient indicates her pain is at a severity of 10/10, described as throbbing, sharp, and aching. She has experienced little relief from cortisone injections, the last of which was on October 23 at [facility]. A previous attempt at physical therapy proved ineffective, worsening her symptoms. Despite a high BMI of 43, attempts are being made to manage weight through dietary changes and weight loss injections, which has seen some success. The patient's pain management options and surgical candidacy are limited due to this factor. The main objective during this evaluation is to consider interventional pain management techniques potentially leading to radiofrequency ablation, co ntingent on response to diagnostic genicular nerve blocks or peripheral nerve stimulation. Patient declined implantable procedure but will consider RFA. - Onset: Chronic pain, progressievely worsening over past several years - Quality: Throbbing, sharp, aching - Severity: 10/10 - Location: Bilateral knees, worsens with movement - Exacerbating Factors: Unsuccessful physical therapy - Relieving Factors: None noted effectiveness - Impact: Severe limitation in ambulatory activities - Affect: The pain likely affects her mood and psychological state due to its severity and constant nature. - Analgesia: Current pain level is 10/10; has received cortisone injections with little relief. Exploring nerve blocks. - Adverse Effects: No specific adverse effects from current pain medications reported. - Activities of Daily Living: The patient's mobility is severely affected by the knee pain. - Aberrant Drug Related Behaviors: None reported or observed. PRIOR 02/25/23: Patient is a 52-year-old Ukrainian-speaking morbidly obese female with prior history of hypertension, unspecified connective tissue disease, mood disorder, LVH, SVT, presents to the this chronic bilateral knee pain for reviewed she has been previously seen by Rheumatology, Orthopedics and Pain Management. Per referral notes, patient was last seen by Pain management in 2019 for consideration of nerve blocks which had previously resulted in relief. Patient presents with localized tenderness of her global anterior knee. She reports left knee surgery at [facility] 6 years ago and right knee surgery more than 15 years ago. Patient reports she underwent multiple injections, x-rays, and states and topical applications abxx-pid-ocyeffs which did not provide her any pain relief. Pain negatively affects her daily activities, functioning, mobility, mood, sleep and sleep interactions. Patient reports medications like tramadol or oxycodone have been the most effective and she requests for opioid medication to be prescribed today. I have informed patient that our office does not offer opioid prescribing at this time. We discussed diagnostic genicular nerve blocks for potential peripheral nerve stimulation or RFA procedures to provide patient's longer-term pain relief. Patient is very hesitant to worse interventional treatments at this time. Denies any fever, weight loss, weakness, knee locking or giving out, bladder or bowel dysfunction or saddle anesthesia. Location Bilateral knees Duration Chronic pain for 3 years Characteristics of symptom or complaint Aching, tiring,burning, stabbing Aggravating or associated factors Standing, walking, climbing stairs, cold weather changes Relieving factors Cymbalta, tramadol, oxycodone, Celebrex, meloxicam Treatment Knee injections, topical applications, ice/heat therapy PFSH Medical History Lupus Arthritis Anemia History of anxiety Depression Personal history of tuberculosis HTN (hypertension) Surgical History Hx of total hysterectomy with removal of both tubes and ovaries Hx of dilation and curettage History of esophagogastroduodenoscopy (EGD) H/O colonoscopy Hx of knee surgery Hx of lithotripsy Hx of appendectomy Social History Alcohol intake: never Years Smoked: 36 Substance Use Type: Marijuana Review of Systems Const All systems reviewed & are unremarkable except as noted in HPI and below Physical Exam Vital Signs: Last Vital Signs Pulse 84 11/03/24 11:47 BP 178/102 H 11/03/24 11:47 Pulse Ox 99 11/03/24 11:47 Oxygen Delivery Method Room Air 11/03/24 11:47 BMI result Body Mass Index 43.3 General: Appears afebrile. Morbidly obese. Alert and oriented. Mood and affect appropriate. Follows and participates in conversation appropriately. Respiratory effort is unlabored. No cough. Able to transition from sit to stand unassisted. Antalgic gait. Ambulates with bilaterally normal heel strike and toe off. Extrem General: Yes capillary refill normal, Yes no clubbing, cyanosis or edema and Yes no calf tenderness Right lower extremity: knee (Limited ROM due to pain. Well healed incision with normal scarring.) Details: normal to inspection, tenderness (global anterior knee) Location: of the patella, of the medial joint line and of the lateral joint line and crepitus; no swelling, no ecchymosis, no deformity and no unusual warmth Left lower extremity: knee (Limited ROM due to pain. Well healed incision with normal scarring.) Details: normal to inspection and tenderness (Global knee pain and tenderness); no swelling, no ecchymosis, no crepitus and no unusual warmth Results Reviewed Results Reviewed: XR Knee To 3V 10/23/24 CLINICAL HISTORY: knee pain Three views of the right knee and three views of the left knee No comparison Right knee: There is severe tricompartmental osteoarthritis. Marginal osteophytes and joint space narrowing is present, most severe involving the lateral joint compartment. No joint effusion. No fracture deformity. Left knee: There has been a previous open reduction internal fixation of the distal left femur. There is a medial l-shaped screw plate with 4 screws traversing the distal femoral metadiaphysis. No evidence of hardware loosening or fracture. No periprosthetic fracture. There is moderately severe tricompartmental osteoarthritis of the left knee, findings are most severe in the medial joint compartment. Trace joint effusion. No acute fracture deformity. IMPRESSION: Bilateral tricompartmental osteoarthritis of the knees. Assessment & Plan Assessment & Plan (1) Bilateral chronic knee pain: Code(s): M25.561 - Pain in right knee; M25.562 - Pain in left knee; G89.29 - Other chronic pain Category: Medical (2) Bilateral primary osteoarthritis of knee: Code(s): M17.0 - Bilateral primary osteoarthritis of knee Category: Medical (3) Hx of knee surgery: Comment: rt patella-2012/lt osteotomy-2015 Code(s): Z98.890 - Other specified postprocedural states Category: Surgical Plan Our objective is to initiate diagnostic bilateral genicular nerve blocks with local and fluoroscopy to assess the potential outcome of radiofrequency ablation for chronic bilateral knee pain secondary to osteoarthritis. Expectations, risks and benefits were reviewed. Patient is aware she will be contacted to schedule this procedure. Prior cortisone injections were not beneficial, and the lack of progression with physical therapy suggests exploring alternate pain management routes. Owing to the patient's elevated BMI at 43, she is not candidate for knee surgery per Orthopedics. Conservative pain management remains a priority with focus on weight management through diet and exercise and she is currently weight loss injections. Patient education emphasized well balanced nutrition and its impact on joint load and chronic pain. All questions and concerns have been answered and patient agreed with the plan. Follow up after injections and sooner as needed. Patient was informed and verbally consented to the use of an ambient scribe for clinic note documentation during this visit. Patient Instructions: During our consultation, we reviewed the diagnosis of chronic bilateral knee pain related to tricompartmental osteoarthritis, emphasizing the limitations imposed by the patient's elevated BMI on treatment options. I explored non- operative pain management strategies, focusing on the use of diagnostic genicular nerve blocks as a precursor to potential radiofrequency ablation and PNS. Patient declined Sprint PNS trial as she is not interested in implantable procedures. I discussed the risks and benefits of each option and clarified that success with the nerve block would warrant insurance-based consideration for ablation. The importance of weight management in conjunction with these interventions was stressed. I outlined the need for follow-up care if inadequate response to the nerve blocks occurs and a return to the orthopedic service might be required. I encouraged the patient to maintain a balanced diet and active weight loss plans. Coding Level of Care Code Est Pt Level 4 (10082) Complex EM visit Add On G2211 Diagnoses Bilateral chronic knee pain M25.561; M25.562; G89.29 Bilateral primary osteoarthritis of knee M17.0 Hx of knee surgery Z98.890
[2024-11-03 11:47] VITALS: BP 178/102; PULSE 84; O2SAT 99; BMI 43.3
--- NOTE | 2024-11-03 11:55 | MHC.OFFVIS ---
Vital Signs 11/03/24 11:47 Height 5 ft 4 in Weight 252 lb 8 oz BMI 43.3 BP 178/102 H Blood Pressure Location Rt brachial Position Sitting Pulse 84 Pulse Source Pulse Oximeter Pulse Oximetry (%) 99 Oxygen Delivery Method Room Air Intake Visit Reasons: Arthritis of both knees Allergies hydroxychloroquine Allergy (Verified 11/03/24 11:48) Unknown PFSH Medical History Lupus Arthritis Anemia History of anxiety Depression Personal history of tuberculosis HTN (hypertension) Surgical History Hx of total hysterectomy with removal of both tubes and ovaries Hx of dilation and curettage History of esophagogastroduodenoscopy (EGD) H/O colonoscopy Hx of knee surgery Hx of lithotripsy Hx of appendectomy Social History Alcohol intake: never Years Smoked: 36 Substance Use Type: Marijuana Review of Systems Const All systems reviewed & are unremarkable except as noted in HPI and below Physical Exam Vital Signs: Last Vital Signs Pulse 84 11/03/24 11:47 BP 178/102 H 11/03/24 11:47 Pulse Ox 99 11/03/24 11:47 Oxygen Delivery Method Room Air 11/03/24 11:47 BMI result Body Mass Index 43.3 Coding Level of Care Code Est Pt Level 4 (27445) Complex EM visit Add On G2219
== END 2024-11-03 12:04 | disposition home or self-care (01) ==
PROVIDERS: PCP Nurse Practitioner Primary Care; Visit Provider Nurse Practitioner Family
DX: M25.561 Pain in right knee (principal); M25.562 Pain in left knee; G89.29 Other chronic pain; M17.0 Bilateral primary osteoarthritis of knee; Z98.890 Other specified postprocedural states
CPT/HCPCS: 99214

== ENCOUNTER → 2024-11-03 11:32 | Outpatient (BNVA) | payer MEDICAID, SELFPAY | PROVIDERS: PCP Nurse Practitioner Primary Care; Visit Provider Nurse Practitioner Family | DX: M25.561 Pain in right knee (principal); M25.562 Pain in left knee; M17.0 Bilateral primary osteoarthritis of knee; G89.29 Other chronic pain; Z98.890 Other specified postprocedural states | CPT/HCPCS: 99212 ==

== ENCOUNTER 2025-01-25 13:13 | Outpatient (AMB) | payer MEDICAID, SELFPAY ==
--- NOTE | 2025-01-25 13:15 | A.OFFVIS_ITS ---
Intake Visit Reasons: INJ Bilat knee OA Intake Note: Sonia is a 54 year old female who presents today for her bilateral knee injections (80) , last injection 10/23/24. Patient states that her last injections gave her gave her mild relief and she would like to repeat. Allergies hydroxychloroquine Allergy (Verified 01/25/25 13:38) Unknown HPI HPI INJ Bilat knee OA: Details: Ms. Camilo presents to the office today for follow up of bilateral knee arthritis. Her last cortisone injection was 10/23/2024. She is looking to see if she can have repeat cortisone injections. [facility] Medical History Lupus Arthritis Anemia History of anxiety Depression Personal history of tuberculosis HTN (hypertension) Surgical History Hx of total hysterectomy with removal of both tubes and ovaries Hx of dilation and curettage History of esophagogastroduodenoscopy (EGD) H/O colonoscopy Hx of knee surgery Hx of lithotripsy Hx of appendectomy Social History Alcohol intake: never Years Smoked: 36 Substance Use Type: Marijuana Review of Systems Const All systems reviewed & are unremarkable except as noted in HPI and below Physical Exam Const General: cooperative, healthy appearing and no acute distress Resp Effort & Inspection: normal respiratory effort and able to speak in complete sentences Extrem Other: Right/Left knee: Morbidly obese. No ecchymosis, erythema, or joint effusion. Range of motion 10-90 degrees. NVI. Psych Appearance: grossly normal Mental Status: mental status grossly normal Attitude: cooperative Office Procedures AMB Joint Injection/Aspiration Joint Injection/Aspiration Primary Site: right knee Secondary Site: left knee Prep: site was prepped using aseptic technique, ethochloride spray was applied and injection warnings given Injected: 80 mg of, DepoMedrol, with 8 mL of (2% plain lidocaine) and in the joint Approach Used: anterolateral Procedure: The patient tolerated the procedure well, but had some pain with the injection and there was some relief with the local anesthesia Coding 57676 - Bilateral Large Joint Procedure code (CPT) selection complete Assessment & Plan Assessment & Plan (1) Bilateral primary osteoarthritis of knee: Code(s): M17.0 - Bilateral primary osteoarthritis of knee Category: Medical Plan The patient was offered a cortisone injection in bilateral knees with 80 mg of DepoMedrol. The patient was explained the risks, benefits, and alternatives to receiving this injection. After receiving consent for the injection, the patient had the procedure done while in the office today. The patient tolerated the procedure well with no complications. Follow-up will be PRN, or sooner if needed Coding Level of Care Code Est Pt Level 3 (98373) Diagnoses Bilateral primary osteoarthritis of knee M17.0 CPT Codes Coding - 04386 - Bilateral Large Joint: 86030 - Bilateral Large Joint ([id number])
--- OUTSIDE RECORDS SUMMARY | 2025-01-25 13:17 | XMS_ITS | Encounter Summary ---
Author Organization [employer] Address [address] [place] [address] Care Team Providers Care Boiler Operators Supervisor Name Role Phone Amanda Beckford ZEKE Primary Care Provider [phone] Reason for Visit * Reason Comments Med Refill Encounter Details Date Type Department Care Team (Late st Contact Info) Description 07/19/2023 Refill [facility] [address], [place] [phone] Anna Marie Sapp MD [address] [place], [place] [phone] Undifferentiated connective tissue disease (CMS/HCC) Social History [...] documented as of this encounter Care Teams Boiler Operators Supervisor Relationship Specialty Start Date End Date Amanda Beckford ANP [address] [place] [id number] PCP - General Family Medicine 07/12/20 documented as of this encounter
== END 2025-01-25 14:33 | disposition home or self-care (01) ==
LOC: HO.HOS 13:13
PROVIDERS: PCP Nurse Practitioner Primary Care; Visit Provider Physician Assistant
DX: M17.0 Bilateral primary osteoarthritis of knee (principal)
CPT/HCPCS: 20610; 99213

== ENCOUNTER → 2025-01-25 13:13 | Outpatient (BNVA) | payer MEDICAID, SELFPAY | PROVIDERS: PCP Nurse Practitioner Primary Care; Visit Provider Physician Assistant | DX: M17.0 Bilateral primary osteoarthritis of knee (principal) | CPT/HCPCS: 20610; 99212; J1010; J2003 ==

== ENCOUNTER 2025-06-01 13:23 | Outpatient (AMB) | payer MEDICAID, SELFPAY ==
--- NOTE | 2025-06-01 13:45 | MHC.OFFVIS ---
Intake Visit Reasons: INJ Bilat knee OA last 01/25/25 Intake Note: 54-year-old female who presents to the office today for chronic knee pain due to osteoarthritis. Last cortisone injection was 01/25/2025. Patient is looking to repeat injections in both knees today. Allergies hydroxychloroquine Allergy (Verified 01/25/25 13:38) Unknown HPI HPI INJ Bilat knee OA last 01/25/25: Details: 54-year-old female who presents to the office today for chronic knee pain due to osteoarthritis. Last cortisone injection was 01/25/2025. Patient is looking to repeat injections in both knees today. REPLACED BY [facility] Medical History Lupus Arthritis Anemia History of anxiety Depression Personal history of tuberculosis HTN (hypertension) Surgical History Hx of total hysterectomy with removal of both tubes and ovaries Hx of dilation and curettage History of esophagogastroduodenoscopy (EGD) H/O colonoscopy Hx of knee surgery Hx of lithotripsy Hx of appendectomy Social History Alcohol intake: never Years Smoked: 36 Substance Use Type: Marijuana Review of Systems Const All systems reviewed & are unremarkable except as noted in HPI and below Physical Exam Const General: cooperative, healthy appearing and no acute distress Resp Effort & Inspection: normal respiratory effort and able to speak in complete sentences Extrem Other: Right/Left knee: Morbidly obese. No ecchymosis, erythema, or joint effusion. Range of motion 10-90 degrees. NVI. Psych Appearance: grossly normal Mental Status: mental status grossly normal Attitude: cooperative Office Procedures AMB Joint Injection/Aspiration Joint Injection/Aspiration Primary Site: Right Knee Secondary Site: Left Knee Prep: site was prepped using aseptic technique, ethochloride spray was applied and injection warnings given Injected: 40 mg of, Decadron, with 3 mL of, 1% plain Lidocaine, 0.25% Bupivacaine and in the joint Approach Used: anterolateral Procedure: The patient tolerated the procedure well, but had some pain with the injection and there was some relief with the local anesthesia Coding 07203 - Bilateral Large Joint Procedure code (CPT) selection complete Assessment & Plan Assessment & Plan (1) Bilateral primary osteoarthritis of knee: Code(s): M17.0 - Bilateral primary osteoarthritis of knee Category: Medical Plan The patient was offered a cortisone injection in bilateral knees. The patient was explained the risks, benefits, and alternatives to receiving this injection. After receiving consent for the injection, the patient had the procedure done while in the office today. The patient tolerated the procedure well with no complications. The risks, benefits, and alternatives to a corticosteroid injection were discussed with the patient, including the potential benefits of decreased inflammation and pain, improved function, and diagnostic value. Risks were reviewed, including post-injection flare, skin or fat atrophy, transient facial flushing, temporary elevation in blood glucose, bruising, and rare but serious complications such as infection, tendon weakening or rupture, and cartilage damage with repeated injections. Procedure-related discomfort and possible vasovagal symptoms were also explained. Alternatives were reviewed, including NSAIDs, physical therapy, activity modification, bracing, ice/heat, weight management, hyaluronic acid injections when appropriate, PRP or other orthobiologics, oral steroids, surgery depending on pathology, and observation. The patient verbalized understanding and elected to proceed. After receiving consent for the injection, the patient had the procedure done while in the office today. The patient tolerated the procedure well with no complications. Follow-up will be PRN, or sooner if needed Coding Level of Care Code Est Pt Level 3 (08347) Add On Problem Visit Only Diagnoses Bilateral primary osteoarthritis of knee M17.0 CPT Codes Coding - 87063 - Bilateral Large Joint: 59877 - Bilateral Large Joint ([id number])
== END 2025-06-01 13:57 | disposition home or self-care (01) ==
LOC: HO.HOS 13:23
PROVIDERS: PCP Nurse Practitioner Primary Care; Visit Provider Physician Assistant
DX: M17.0 Bilateral primary osteoarthritis of knee (principal)
CPT/HCPCS: 20610; 99213

== ENCOUNTER → 2025-06-01 13:23 | Outpatient (BNVA) | payer MEDICAID, SELFPAY | PROVIDERS: PCP Nurse Practitioner Primary Care; Visit Provider Physician Assistant | DX: M17.11 Unilateral primary osteoarthritis, right knee (principal); G89.29 Other chronic pain | CPT/HCPCS: 20610; 99212; J0665; J1100; J2003 ==